=== PATIENT | male | born 1985 | race Caucasian/White ===

== ENCOUNTER 2017-01-05 18:41 | Emergency (ER) | payer BC ==
[2017-01-05 18:45] VITALS: BP 141/67
[2017-01-05] MEDS ORDERED: NS 0.9% 1000 ML* 1,000 ML IV ONE (20:59)
[2017-01-05] MEDS ORDERED: Ketorolac INJ* 30 MG/ML 1 ML VIAL IV PUSH ONE (20:59)
[2017-01-05 22:13] LABS: Hematocrit 46 % (42-52); Hemoglobin 15.9 g/dl (14.0-18.0); Mean Corpuscular HGB Conc 34 g/dl (31-36); Mean Corpuscular Hemoglobin 32 pg (27-31); Mean Corpuscular Volume 93 fL (80-94); Mean Platelet Volume 8 um3 (7.4-10.4); Red Blood Count 4.99 10^6/ul (4.0-5.4); Red Cell Distribution Width 13 % (10.5-15); White Blood Count 9.3 10^3/ul (3.5-10.8)
--- NOTE | 2017-01-05 22:14 | RAD ---
HISTORY: Flank pain COMPARISONS: CT dated March 29, 2016 TECHNIQUE: Multiple transverse and longitudinal ultrasound images were obtained of the kidneys using grayscale and color Doppler imaging. FINDINGS: RIGHT KIDNEY: The right kidney is normal in shape, size, contour, and echogenicity. There is a 1.1 cm calculus of the mid to lower pole.. There is a 0.5 cm calculus of the midpole . There is no appreciable hydronephrosis. The right kidney measures 11.5 x 4.4 x 5.7 cm. LEFT KIDNEY: The left kidney is normal in shape, size, contour, and echogenicity. There is a 0.7 cm tract was of lower pole. Several other smaller calculi are noted. There is no hydronephrosis. The left kidney measures 11.1 x 5.8 x 5 cm. BLADDER: No images are submitted of the bladder. AORTA AND IVC: No images are submitted of the vasculature. RETROPERITONEUM: Unremarkable. OTHER: None. IMPRESSION: BILATERAL NEPHROLITHIASIS WITHOUT HYDRONEPHROSIS
[2017-01-05 22:17] LABS: Urine Bacteria Absent (Absent); Urine Bilirubin Negative (Negative); Urine Glucose Negative (Negative); Urine Nitrite Negative (Negative)
[2017-01-05 22:27] LABS: ALT 31 U/L (7-52); AST 27 U/L (13-39); Albumin 4.1 g/dL (3.2-5.2); Alkaline Phosphatase 53 U/L (34-104); Anion Gap 5 mmol/L (2-11); BUN/Creatinine Ratio 14.1 (8-20); Blood Urea Nitrogen 12 mg/dL (6-24); C Reactive Protein < 1.00 mg/L (< 5.00); CO2 Carbon Dioxide 24 mmol/L (22-32); Calcium 9.3 mg/dL (8.6-10.3); Chloride 107 mmol/L (101-111); EGFR African American 135.2 (>60); EGFR Non-African American 105.1 (>60); Globulin 2.5 g/dL (2-4); Glucose 94 mg/dL (70-100); Lipase 21 U/L (11.0-82.0); Potassium 3.9 mmol/L (3.5-5.0); Sodium 136 mmol/L (133-145); Total Protein 6.6 g/dL (6.4-8.9)
--- NOTE | 2017-01-05 23:03 | RAD ---
HISTORY: Right testicular pain COMPARISONS: None TECHNIQUE: Multiple transverse and longitudinal ultrasound images were obtained of the scrotum, using grayscale, color Doppler, and spectral Doppler imaging. FINDINGS: RIGHT: RIGHT TESTICLE: The right testicle measures 4.4 x 2.1 x 3.3 cm. There is no testicular parenchymal mass. There are extensive echogenic foci consistent with testicular microlithiasis. Normal arterial and venous waveforms are identified within the right testicle on spectral Doppler imaging. RIGHT EPIDIDYMIS: The right epididymis measures 1.1 cm at the head. There is a 0.4 cm epididymal head cyst. RIGHT SCROTUM: There is a small right varicocele. LEFT: LEFT TESTICLE: The left testicle measures 5 x 2.4 x 3 cm. There is no testicular parenchymal mass. There are extensive echogenic foci consistent with microlithiasis. Normal arterial and venous waveforms are identified within the left testicle on spectral Doppler imaging. LEFT EPIDIDYMIS: The left epididymis measures 1 cm at the head. LEFT SCROTUM: There is no hydrocele or varicocele. OTHER: There are right inguinal lymph node is noted measuring 0.5 cm in short axis. This is a typically benign-appearing IMPRESSION: 1. NO TESTICULAR PARENCHYMAL MASS. 2. NO SONOGRAPHIC FEATURES OF TORSION. PLEASE NOTE THAT PARTIAL OR INTERMITTENT TORSION MAY BE SONOGRAPHICALLY NORMAL. 3. SMALL RIGHT VARICOCELE. 4. BILATERAL TESTICULAR MICROLITHIASIS. THIS HAS BEEN ASSOCIATED WITH INCREASED RISK OF TESTICULAR NEOPLASM. RECOMMEND CONSIDERATION OF YEARLY SURVEILLANCE TESTICULAR ULTRASOUND
[2017-01-05] MEDS ORDERED: Sulfamethox/Trimethoprim DS 800/160* TAB PO ONE (23:36)
--- NOTE | 2017-01-06 01:00 | ED ---
Jorge Zambrano Salem, scribed for Kj Tavera MD on 01/05/17 at 2124 . GI/ HPI - HPI Summary HPI Summary: Patient is a 31 y/o M who presents to the ED with constant 6/10 right-sided flank pain for the past week. He denies hematuria, but reports dark urine, and testicular pain. Pt denies any lumps in his testicles. He reports PMHx of kidney issues, but denies appendectomy. - History of Current Complaint Chief Complaint: EDUrogenitalProblems Time Seen by Provider: 01/05/17 20:54 Stated Complaint: BACK/GROIN PAIN Hx Obtained From: Patient Onset/Duration: Started Days Ago, Still Present Timing: Constant, Lasting Days Severity: Moderate Current Severity: Moderate Pain Intensity: 6 Location of Pain: Flank - Right. Additional Locations for Males: Testicles Pain Characteristics: Sharp Associated Signs and Symptoms: Positive: Other: - Dark urine.. Negative: Hematuria Aggravating Factor(s): Nothing Alleviating Factor(s): Nothing - Allergy/Home Medications Allergies/Adverse Reactions: Allergies Allergy/AdvReac Type Severity Reaction Status Date / Time Penicillins Allergy HIVES,VOMIT Verified 03/29/16 07:59 ING PMH/Surg Hx/FS Hx/Imm Hx Endocrine/Hematology History: Denies: Hx Anticoagulant Therapy, Hx Diabetes, Hx Thyroid Disease Cardiovascular History: Denies: Hx Hypertension, Hx Pacemaker/ICD Respiratory History: Denies: Hx Asthma, Hx Chronic Obstructive Pulmonary Disease (COPD) GI History: Reports: Hx Irritable Bowel - IMMODIUM AD Denies: Hx Ulcer History: Reports: Hx Kidney Stones - RIGHT URETERAL STONE HISTORY Denies: Hx Renal Disease - kidney stones Sensory History: Denies: Hx Contacts or Glasses, Hx Hearing Aid Opthamlomology History: Denies: Hx Contacts or Glasses Neurological History: Denies: Hx Dementia, Hx Seizures, Other Neuro Impairments/Disorders - DENIES Psychiatric History: Denies: Hx Substance Abuse - Surgical History Surgery Procedure, Year, and Place: 09/10/2012 CYSTOSCOPY WITH RIGHT URETERAL STENT, [facility] [place]. 1997 RIGHT FEMUR REPAIR, [facility] [place] Hx Anesthesia Reactions: No Infectious Disease History: No Infectious Disease History: Denies: Hx Hepatitis, Hx Human Immunodeficiency Virus (HIV), Traveled Outside the [place] in Last 30 Days - Family History Known Family History: Positive: Other - no anestesia rnx, no malignant hyperthermia - Social History Alcohol Use: None Substance Use Type: Reports: None Smoking Status (MU): Heavy Every Day Tobacco Smoker Review of Systems Negative: Fever, Chills Negative: Erythema Negative: Sore Throat Negative: Chest Pain Negative: Shortness Of Breath, Cough Negative: Abdominal Pain, Vomiting, Nausea Positive: flank pain - Right. , hematuria, other - Dark urine. Testicular pain. No lumps in testicles. . Negative: dysuria Negative: Myalgia, Edema Negative: Rash Neurological: Other - No dizziness. All Other Systems Reviewed And Are Negative: Yes Physical Exam - Summary Physical Exam Summary: Constitutional: Well-developed, Well-nourished, Alert. (-) Distressed Skin: Warm, Dry HENT: Normocephalic; Atraumatic Eyes: Conjunctiva normal Neck: Musculoskeletal ROM normal neck. (-) JVD, (-) Stridor, (-) Tracheal deviation Cardio: Rhythm regular, rate normal, Heart sounds normal; Intact distal pulses; The pedal pulses are 2+ and symmetric. Radial pulses are 2+ and symmetric. (-) Murmur Pulmonary/Chest wall: Effort normal. (-) Respiratory distress, (-) Wheezes, (-) Rales Abd: Soft, (-) Tenderness, (-) Distension, (-) Guarding, (-) Rebound Musculoskeletal: (-) Edema Lymph: (-) Cervical adenopathy GIGU: Right testicle and urethra are non-tender. Mild tenderness in right groin. No CVA tenderness. Neuro: Alert, Oriented x3 Psych: Mood and affect Normal Triage Information Reviewed: Yes Vital Signs On Initial Exam: Initial Vitals Temp Pulse Resp BP Pulse Ox 98.8 F 105 20 141/67 99 01/05/17 18:43 01/05/17 18:43 01/05/17 18:43 01/05/17 18:43 01/05/17 18:43 Vital Signs Reviewed: Yes Diagnostics - Vital Signs Vital Signs Temp Pulse Resp BP Pulse Ox 01/05/17 18:45 98.8 F 103 20 141/67 99 01/05/17 18:43 98.8 F 105 20 141/67 99 - Laboratory Result Diagrams: 01/05/17 22:02 01/05/17 22:02 Lab Statement: Any lab studies that have been ordered have been reviewed, and results considered in the medical decision making process. - Ultrasound No standard instances Ultrasound Interpretation Completed By: Radiologist - Testicular US IMPRESSION: 1. NO TESTICULAR PARENCHYMAL MASS. 2. NO SONOGRAPHIC FEATURES OF TORSION. PLEASE NOTE THAT PARTIAL OR INTERMITTENT TORSION MAY BE SONOGRAPHICALLY NORMAL. 3. SMALL RIGHT VARICOCELE. 4. BILATERAL TESTICULAR MICROLITHIASIS. THIS HAS BEEN ASSOCIATED WITH INCREASED RISK OF TESTICULAR NEOPLASM. RECOMMEND CONSIDERATION OF YEARLY SURVEILLANCE TESTICULAR ULTRASOUND. Renal US IMPRESSION: BILATERAL NEPHROLITHIASIS WITHOUT HYDRONEPHROSIS Re-Evaluation - Re-Evaluation First Eval Re-Evaluation Time: 23:51 Comment: Re-evaluated pt and discussed imaging results. GIGU Course/Dx - Course Course Of Treatment: 31 y/o M presents with constant 6/10 right-sided flank pain for the past week. He denies hematuria, but reports dark urine, and testicular pain. Pt received Toradol and fluids in ED course. Pt will be DC. - Diagnoses Provider Diagnoses: Renal colic Discharge - Discharge Plan Condition: Stable Disposition: HOME Prescriptions: Naproxen TAB* [Naprosyn 250 mg TAB*] 500 mg PO Q8H PRN #30 tab PRN Reason: Pain Scale 6-10 Sulfamethox/Trimethoprim DS* [Bactrim DS 800/160 TAB*] 1 tab PO BID #20 tab Patient Education Materials: Renal Colic (ED) Referrals: Hafsa Billings MD [Primary Care Provider] - Additional Instructions: Please follow up with your primary provider. RETURN TO THE EMERGENCY DEPARTMENT FOR CHANGING OR WORSENING SYMPTOMS. The documentation as recorded by the Jorge monreal Salem accurately reflects the service I personally performed and the decisions made by , Kj Tavera MD.
== END 2017-01-05 23:51 | disposition home or self-care (01) ==
LOC: ED 18:41
DX: N20.0 Calculus of kidney (principal); Z87.442 Personal history of urinary calculi; N50.89 Other specified disorders of the male genital organs; Z88.0 Allergy status to penicillin; F17.210 Nicotine dependence, cigarettes, uncomplicated
CPT/HCPCS: 36415; 76775; 76870; 80053; 81003; 81015; 83605; 83690; 85025; 86140; 87086; 96361; 96374; 99283; A9270-GY; J1885

== ENCOUNTER 2017-02-16 08:03 | Emergency (ER) | payer BC ==
[2017-02-16] MEDS ORDERED: Aspirin Low Dose CHEW TAB* 81 MG PO ONE (09:14)
[2017-02-16] MEDS ORDERED: Aspirin Low Dose CHEW TAB* 81 MG ONE (09:14)
[2017-02-16] MEDS ORDERED: Nitroglycerin TAB 0.4 MG* 0.4 MG TAB ONE (09:14)
[2017-02-16] MEDS ORDERED: Nitroglycerin TAB 0.4 MG* 0.4 MG TAB SL ONE (09:16)
--- NOTE | 2017-02-16 09:17 | ED ---
HPI Chest Pain - HPI Summary HPI Summary: Patient presents with CC of chest tightness which began at 5-6am, intermittent, worse with exertion and better with rest, and radiating to the left shoulder and down the arm with numbness/tingling. He also noted some SOB with episode. Pain is not worse with deep breaths. He states he feels best if he is lying flat. Notes to some diaphoresis and nausea. Patient denies any symptoms currently. PMHx insignificant. Denies previous cardiac issues. This has never happened before. He takes no medications and has no allergies. Similar episode 1x week ago which resolved. Patient is a heavy smoker, last ETOH 3 days ago, denies drug use. Fx positive for father of CT at 51yo. Denies recent illness. Denies N/V/C/D, ORTIZ neck pain or back pain. Never has had shoulder or upper back problems. - History of Current Complaint Chief Complaint: EDChestPainROMI Time Seen by Provider: 02/16/17 08:36 Hx Obtained From: Patient Onset/Duration: Started Hours Ago Time of Onset: 05:00 - 5am Timing: Constant Pain Intensity: 5 Pain Scale Used: 0-10 Numeric Chest Pain Location: Left Anterior Chest Pain Radiates: Yes Chest Pain Radiates To:: Shoulder, Arm Character: Tightness Aggravating Factor(s): Exertion Alleviating Factor(s): Rest, Position - recumbent position Associated Signs and Symptoms: Positive: Chest Pain, Diaphoresis - Risk Factors Pulmonary Embolism Risk Factors: Smoking TAD Risk Factors: Smoking, Family Hx AMI/ACS Risk Factors: Family History, Smoking - Allergy/Home Medications Allergies/Adverse Reactions: Allergies Allergy/AdvReac Type Severity Reaction Status Date / Time Penicillins Allergy HIVES,VOMIT Verified 02/16/17 08:19 ING Home Medications: Home Medications NK [No Home Medications Reported] 02/16/17 [History Confirmed 02/16/17] PMH/Surg Hx/FS Hx/Imm Hx Previously Healthy: Yes Endocrine/Hematology History: Denies: Hx Anticoagulant Therapy, Hx Diabetes, Hx Thyroid Disease Cardiovascular History: Denies: Hx Hypertension, Hx Pacemaker/ICD Respiratory History: Denies: Hx Asthma, Hx Chronic Obstructive Pulmonary Disease (COPD) GI History: Reports: Hx Irritable Bowel - IMMODIUM AD Denies: Hx Ulcer History: Reports: Hx Kidney Stones - RIGHT URETERAL STONE HISTORY Denies: Hx Renal Disease - kidney stones Sensory History: Denies: Hx Contacts or Glasses, Hx Hearing Aid Opthamlomology History: Denies: Hx Contacts or Glasses Neurological History: Denies: Hx Dementia, Hx Seizures, Other Neuro Impairments/Disorders - DENIES Psychiatric History: Denies: Hx Substance Abuse - Surgical History Surgery Procedure, Year, and Place: 09/10/2012 CYSTOSCOPY WITH RIGHT URETERAL STENT, [facility]. 1998 RIGHT FEMUR REPAIR, [facility] Hx Anesthesia Reactions: No - Immunization History Hx Pertussis Vaccination: No Immunizations Up to Date: Unable to Obtain/Confirm Infectious Disease History: No Infectious Disease History: Denies: Hx Hepatitis, Hx Human Immunodeficiency Virus (HIV), Traveled Outside the [place] in Last 30 Days - Family History Known Family History: Positive: Other - no anestesia rnx, no malignant hyperthermia - Social History Occupation: Employed Full-time Lives: With Family Alcohol Use: Occasionally Hx Substance Use: No Substance Use Type: Reports: None Hx Tobacco Use: Yes Smoking Status (MU): Heavy Every Day Tobacco Smoker Review of Systems Positive: Skin Diaphoresis Eyes: Negative ENT: Negative Positive: Chest Pain Positive: Shortness Of Breath Gastrointestinal: Negative Positive: no symptoms reported, see HPI Positive: Myalgia - shoulder pain Skin: Negative Neurological: Negative Psychological: Normal All Other Systems Reviewed And Are Negative: Yes Physical Exam Triage Information Reviewed: Yes Vital Signs On Initial Exam: Initial Vitals Temp Pulse Resp BP Pulse Ox 99.2 F 88 18 125/71 99 02/16/17 08:04 02/16/17 08:04 02/16/17 08:04 02/16/17 08:04 02/16/17 08:04 Vital Signs Reviewed: Yes Appearance: Positive: Well-Appearing, Well-Nourished Skin: Positive: Warm, Skin Color Reflects Adequate Perfusion Head/Face: Positive: Normal Head/Face Inspection Eyes: Positive: Normal, EOMI, JITENDRA, Conjunctiva Clear Neck: Positive: Supple, Nontender, No Lymphadenopathy Respiratory/Lung Sounds: Positive: Clear to Auscultation, Breath Sounds Present Cardiovascular: Positive: RRR, Pulses are Symmetrical in both Upper and Lower Extremities Abdomen Description: Positive: Soft Musculoskeletal: Positive: Normal, Strength/ROM Intact Neurological: Positive: Normal, Sensory/Motor Intact Psychiatric: Positive: Normal AVPU Assessment: Alert - Jody Coma Scale Best Eye Response: 4 - Spontaneous Best Motor Response: 6 - Obeys Commands Best Verbal Response: 5 - Oriented Coma Scale Total: 15 Diagnostics - Vital Signs Vital Signs Temp Pulse Resp BP Pulse Ox 02/16/17 09:00 80 17 119/73 98 02/16/17 08:17 84 14 98 02/16/17 08:16 16 02/16/17 08:15 118/67 02/16/17 08:08 99.3 F 90 18 125/71 99 02/16/17 08:04 99.2 F 88 18 125/71 99 - Laboratory Result Diagrams: 02/16/17 08:52 02/16/17 08:52 Lab Statement: Any lab studies that have been ordered have been reviewed, and results considered in the medical decision making process. Chest Pain Course/Dx - Course Course Of Treatment: The anterior left chest pain cannot be reproduced on PE. Trop #1 and #2 0.01 and unchanged. EKG shows diffuse ST elevation. Dr. Mulligan consulted. ECHO performed and negative for effusion. Patient denies asprin and ibuprofen use. Deneis drug use. Will follow up with cardiology outpatient. OK to discharge. Patient will take 800mg motrin x 2 weeks. Denies other symptoms or changes. - Chest Pain Differential Diagnosis/HQI/PQRI: Acute CT, ACS, Angina - Diagnoses Provider Diagnoses: Chest pain Discharge - Discharge Plan Condition: Stable Disposition: HOME Patient Education Materials: Chest Pain (ED) Referrals: Hafsa Billings MD [Primary Care Provider] - Additional Instructions: 800mg motrin four times daily for 2 weeks Follow up with DR. Mulligan in office If symptoms become worse, return to ED
[2017-02-16 09:27] LABS: Hematocrit 48 % (42-52); Hemoglobin 16.3 g/dl (14.0-18.0); Mean Corpuscular HGB Conc 34 g/dl (31-36); Mean Corpuscular Hemoglobin 32 pg (27-31); Mean Corpuscular Volume 95 fL (80-94); Mean Platelet Volume 8 um3 (7.4-10.4); Red Blood Count 5.05 10^6/ul (4.0-5.4); Red Cell Distribution Width 14 % (10.5-15); White Blood Count 9.3 10^3/ul (3.5-10.8)
--- NOTE | 2017-02-16 09:33 | RAD ---
Indication: Chest pain. Single frontal view of the chest performed at 0920 hours was reviewed. No prior study is available for comparison. No mediastinal shift is noted. Heart is of normal size and configuration. Lung chris appear clear. IMPRESSION: NO ACTIVE CARDIOPULMONARY DISEASE IS NOTED.
[2017-02-16 09:39] LABS: Albumin 4.2 g/dL (3.2-5.2); Calcium 9.7 mg/dL (8.6-10.3); EGFR African American 132.5 (>60); EGFR Non-African American 103.1 (>60); Globulin 2.8 g/dL (2-4); Total Bilirubin 0.4 mg/dL (0.2-1.0)
[2017-02-16 09:42] LABS: Troponin I 0.01 ng/mL (<0.04)
[2017-02-16 10:24] LABS: Potassium 4.5 mmol/L (3.5-5.0)
[2017-02-16 10:59] LABS: Magnesium 2.2 mg/dL (1.9-2.7)
[2017-02-16 11:04] LABS: Urine Bacteria Absent (Absent); Urine Bilirubin Negative (Negative); Urine Glucose 1+(50 mg/dL) (Negative); Urine Nitrite Negative (Negative)
[2017-02-16 11:39] LABS: Benzodiazepine Urine Screen None Detected (None Detect)
--- NOTE | 2017-02-16 11:57 | ECHO ---
Patient: BUNNY PUGA [facility] [place] Rec#: [id number] : 1985 Date: 02/16/2017 Age: 32y Height: 177.8 cm / 70.0 in Weight: 69.4 kg / 153.0 lbs Sex: M BSA: 1.86 Room#: ED 12 Admit Date#: 02/16/2017 Type: Outpatient Referring: Ish Mulligan MD Reading: Ish Mulligan MD [employer] Of [employer] Ideas: Kathy Martins,KENDALLCS,RDMS CC: Hafsa Billings MD Transthoracic Echocardiogram Indication: CP BP: 108/67 HR: 74 Rhythm: NSR Findings History: Smoker, family history of CAD Technical Comments: The study quality is good. Completed 1200 Left Ventricle: The left ventricular chamber size is normal. Mild concentric left ventricular hypertrophy is observed. Global left ventricular wall motion and contractility are within normal limits. Left ventricular systolic function is at the lower limits of normal. The estimated ejection fraction is 50-55%. Normal left ventricular diastolic filling is observed. Left Atrium: The left atrial chamber size is normal. Right Ventricle: The right ventricular chamber size and systolic function are within normal limits. Right Atrium: The right atrial cavity size is normal. Aortic Valve: The aortic valve is trileaflet. Systolic excursion of the aortic valve is normal. There is no evidence of aortic regurgitation. There is no evidence of aortic stenosis. Mitral Valve: The mitral valve leaflets appear normal. There is a trace of mitral regurgitation. There is no evidence of mitral stenosis. Tricuspid Valve: The tricuspid valve leaflets are normal. There is trace tricuspid regurgitation. Unable to estimate the right ventricular systolic pressure. Pulmonic Valve: The pulmonic valve appears normal. There is a trace pulmonic regurgitation. Pericardium: There is no significant pericardial effusion. Aorta: The aortic root appears normal. There is no dilatation of the aortic arch. Pulmonary Artery: The main pulmonary artery appears normal. Venous: The inferior vena cava appears normal. There is a greater than 50% respiratory change in the inferior vena cava dimension. Conclusions Mild concentric left ventricular hypertrophy is observed. Global left ventricular wall motion and contractility are within normal limits. Left ventricular systolic function is at the lower limits of normal. The estimated ejection fraction is 50-55%. There is no evidence of aortic stenosis. There is a trace of mitral regurgitation. There is trace tricuspid regurgitation. Unable to estimate the right ventricular systolic pressure. There is no significant pericardial effusion. There is no dilatation of the aortic arch. Measurements Name Value Normal Range RVIDd (AP) 2D 2.3 cm (0.9 - 2.6) RVDdMajor (2D) 3.2 cm (2.2 - 4.4) RAd ISD 4CH 4.5 cm (3.4 - 4.9) RA (A4C)W 4.2 cm (2.9 - 4.6) IVSd (2D) 1.3 cm (0.6 - 1) LVPWd (2D) 1.1 cm (0.6 - 1) LVIDd (2D) 4.6 cm (3.6 - 5.4) LVIDs (2D) 2.8 cm - LV FS (2D) 38 % (25 - 45) Aortic Annulus 2.1 cm (1.4 - 2.6) Ao root diameter (2D) 2.6 cm (2.1 - 3.5) Ascending Ao 2.5 cm (2.1 - 3.4) Aortic arch 2.8 cm (1.8 - 3.4) LA dimension (AP) 2D 3.9 cm (2.3 - 3.8) LAd ISD 4CH 5.8 cm (2.9 - 5.3) LA ISD 4CH W 3.2 cm (2.5 - 4.5) Name Value Normal Range LA ESV SP 4CH (A/L) 46.72 ml - LA ESV SP 2CH (A/L) 39.92 ml - LA ESV BP (A/L) 44.29 ml - LA ESV BP (A/L) index 24 ml/m2 - LA ESV SP 4CH (MOD) 43.41 ml - LA ESV SP 2CH (MOD) 37.3 ml - Name Value Normal Range MV E-wave Vmax 0.5 m/sec - MV deceleration time 208 msec - MV A-wave Vmax 0.4 m/sec - MV E:A ratio 1.3 ratio - P. vein S-wave Vmax 0.6 m/sec - P. vein D-wave Vmax 0.4 m/sec - P. vein S:D Vmax ratio 1.4 ratio - P. vein A-wave duration 89 msec - LV septal e' Vmax 0.11 m/sec - LV lateral e' Vmax 0.14 m/sec - LV E:e' septal ratio 4.5 ratio - LV E:e' lateral ratio 3.6 ratio - Name Value Normal Range AV Vmax 1.3 m/sec - AV VTI 23 cm - AV peak gradient 7 mmHg - AV mean gradient 3.3 mmHg - LVOT Vmax 1.1 m/sec - LVOT VTI 19.8 cm - LVOT peak gradient 5 mmHg - LVOT mean gradient 2.6 mmHg - DOROTEO Vmax 1 m/sec - Name Value Normal Range RAP 8 mmHg - IVC diameter 1.9 cm - Name Value Normal Range PV Vmax 0.9 m/sec - PV peak gradient 3.2 mmHg -
[2017-02-16 12:35] VITALS: BP 126/60
--- NOTE | 2017-02-16 21:56 | CONS ---
CARDIOLOGY CONSULTATION: DATE OF CONSULT: 02/16/17 - EMERGENCY DEPT INDICATION FOR CONSULTATION: Chest pain. HISTORY OF PRESENT ILLNESS: The patient is a 32-year-old gentleman with a history of smoking, who came to the emergency room with chest pain. The patient states that over the last week or so, he has been having intermittent chest pain, occasionally with exertion, but most of the time with rest. He denies any lightheadedness, dizziness, or syncope. The patient states that today, he was having a cigarette and had severe chest pain that radiated down his left arm. He also had some diaphoresis associated with that. At that point , he decided to come to the emergency room. On arrival to the emergency room, the patient did not have any chest pain or shortness of breath. His initial EKG demonstrates normal sinus rhythm with MN depression and ST segment elevation consistent with pericarditis. The patient denies any history of coronary artery disease. His father of a myocardial infarction at age 51. He does report that he was recently in the hospital with kidney stones about 3 weeks ago. PAST MEDICAL HISTORY: Unremarkable. He does have a history of kidney stones. PAST SURGICAL HISTORY: None. OUTPATIENT MEDICATIONS: None. ALLERGIES: To PENICILLIN. SOCIAL HISTORY: He works as a truck crane operator for [employer] He reports smoking 1 to 2 packs of cigarettes a day. He does drink high energy drinks for his chronic fatigue. Occasional alcohol use. PHYSICAL EXAMINATION: Height is 5 feet 10 inches, weight is 153 pounds, temperature 99, blood pressure 126/60, heart rate is 80, respiratory rate is 18. Sclerae anicteric. Oropharynx is pink without erythema. Carotids are 2+ without bruits. JVD is normal. Thyroid is normal. Cardiac Exam: S1, S2 without any murmurs, rubs or gallops. Lungs are clear to auscultation bilaterally. There is no dullness to percussion. Abdomen is soft, nontender, nondistended with normal active bowel sounds. Extremities: Show no edema. He has 2+ pulses throughout. The patient is awake, alert, and oriented. He moves all 4 extremities equally. DIAGNOSTIC STUDIES/LAB DATA: CBC within normal limits. Chemistries within normal limits. AST and ALT are within normal limits. Troponin level 0.01, second troponin 0.01. BNP is 20. An echocardiogram done in the emergency room demonstrated normal LV size with systolic function. No valvular abnormality. No evidence of pericardial effusion or pericardial inflammation. IMPRESSION AND PLAN: This is a 32-year-old gentleman with a history of smoking , who came to the emergency room because of chest pain. His chest pain is quite consistent with pericarditis. His EKG is consistent with pericarditis. His echocardiogram shows no focal wall motion abnormalities and no significant valvular abnormalities. For now, my diagnosis is pericarditis. It is my recommendation the patient start Motrin 3 times a day for 2 weeks. I will see the patient in followup. If the patient continues to have chest pain, he is asked to come back to the emergency room. [id number]/CPS #: [id number] VELMA
== END 2017-02-16 12:51 | disposition home or self-care (01) ==
LOC: ED 08:03
DX: R07.89 Other chest pain (principal); R61 Generalized hyperhidrosis; Z88.0 Allergy status to penicillin; Z87.442 Personal history of urinary calculi; F17.210 Nicotine dependence, cigarettes, uncomplicated
CPT/HCPCS: 36415; 71010; 80053; 80307; 81003; 81015; 82550; 82553; 83605; 83735; 83874; 83880; 84484; 85025; 85610; 85730; 93005; 93306; 99283; A9270-GY

== ENCOUNTER 2017-02-22 00:30 | Observation (INO) | payer BC ==
[2017-02-22] MEDS ORDERED: NS 0.9% 1000 ML* 1,000 ML IV ONE (02:11)
[2017-02-22] MEDS ORDERED: Ketorolac INJ* 30 MG/ML 1 ML VIAL IV PUSH ONE (02:11)
[2017-02-22 02:26] LABS: Hematocrit 45 % (42-52); Hemoglobin 15.1 g/dl (14.0-18.0); Mean Corpuscular HGB Conc 34 g/dl (31-36); Mean Corpuscular Hemoglobin 32 pg (27-31); Mean Corpuscular Volume 96 fL (80-94); Mean Platelet Volume 8 um3 (7.4-10.4); Red Blood Count 4.71 10^6/ul (4.0-5.4); Red Cell Distribution Width 13 % (10.5-15); White Blood Count 10.4 10^3/ul (3.5-10.8)
[2017-02-22 02:38] LABS: Albumin 4.1 g/dL (3.2-5.2); BUN/Creatinine Ratio 17.5 (8-20); Calcium 9.2 mg/dL (8.6-10.3); EGFR African American 115.4 (>60); EGFR Non-African American 89.7 (>60); Globulin 2.5 g/dL (2-4); Potassium 4.2 mmol/L (3.5-5.0); Total Bilirubin 0.3 mg/dL (0.2-1.0); Total Protein 6.6 g/dL (6.4-8.9)
[2017-02-22] MEDS ORDERED: Ondansetron INJ* 2 MG/ML VIAL IV ONE (04:02)
[2017-02-22] MEDS ORDERED: Morphine INJ* 4 MG/ML 1 ML SYRINGE IV ONE (04:02)
[2017-02-22] MEDS ORDERED: HYDROmorphone* 1 MG/ML 1 ML SYR IV SLOW PU ONE (04:22)
--- NOTE | 2017-02-22 04:33 | ED ---
Durga Zambrano Alfonso, scribed for Mesfin Cox on 02/22/17 at 0234 . Abdominal Pain/Male - HPI Summary HPI Summary: This patient is a 32 year old M presenting to [facility] with a chief complaint of right flank pain since 2099 yesterday. Pt rates the pain 8/10 in severity. Symptoms aggravated and alleviated by nothing. Pt reports nausea, and vomiting. Pt denies rash, and hematuria. Tobacco abuse disorder. PMHx of kidney stones. - History of Current Complaint Chief Complaint: EDFlankPain Stated Complaint: LOWER RT SIDE FLANK PAIN Time Seen by Provider: 02/22/17 01:49 Hx Obtained From: Patient Onset/Duration: Sudden Onset, Lasting Hours - since 2099 yesterday/tonight, Still Present Timing: Constant Severity Initially: Moderate Severity Currently: Moderate Pain Intensity: 8 Pain Scale Used: 0-10 Numeric Location: Flank - R Aggravating Factor(s): Nothing Alleviating Factor(s): Nothing Associated Signs And Symptoms: Positive: Other - Pt reports nausea, and vomiting. Pt denies rash, and hematuria. - Allergies/Home Medications Allergies/Adverse Reactions: Allergies Allergy/AdvReac Type Severity Reaction Status Date / Time Penicillins Allergy HIVES,VOMIT Verified 02/16/17 08:19 ING PMH/Surg Hx/FS Hx/Imm Hx Endocrine/Hematology History: Denies: Hx Anticoagulant Therapy, Hx Diabetes, Hx Thyroid Disease Cardiovascular History: Denies: Hx Hypertension, Hx Pacemaker/ICD Respiratory History: Denies: Hx Asthma, Hx Chronic Obstructive Pulmonary Disease (COPD) GI History: Reports: Hx Irritable Bowel - IMMODIUM AD Denies: Hx Ulcer History: Reports: Hx Kidney Stones - RIGHT URETERAL STONE HISTORY Denies: Hx Renal Disease - kidney stones Sensory History: Denies: Hx Contacts or Glasses, Hx Hearing Aid Opthamlomology History: Denies: Hx Contacts or Glasses Neurological History: Denies: Hx Dementia, Hx Seizures, Other Neuro Impairments/Disorders - DENIES Psychiatric History: Denies: Hx Substance Abuse - Surgical History Surgery Procedure, Year, and Place: 09/10/2012 CYSTOSCOPY WITH RIGHT URETERAL STENT, [facility] [place]. 1997 RIGHT FEMUR REPAIR, [facility] [place] Hx Anesthesia Reactions: No Infectious Disease History: Denies: Hx Hepatitis, Hx Human Immunodeficiency Virus (HIV), Traveled Outside the [place] in Last 30 Days - Family History Known Family History: Positive: Other - no anestesia rnx, no malignant hyperthermia - Social History Alcohol Use: Occasionally Hx Substance Use: No Substance Use Type: Reports: None Hx Tobacco Use: Yes Smoking Status (MU): Heavy Every Day Tobacco Smoker Review of Systems Positive: Abdominal Pain - R flank, Vomiting, Nausea Negative: hematuria Negative: Rash All Other Systems Reviewed And Are Negative: Yes Physical Exam Triage Information Reviewed: Yes Vital Signs On Initial Exam: Initial Vitals Temp Pulse Resp BP Pulse Ox 97.8 F 77 16 132/88 99 02/22/17 00:37 02/22/17 00:37 02/22/17 00:37 02/22/17 00:37 02/22/17 00:37 Vital Signs Reviewed: Yes Appearance: Positive: Well-Appearing, No Pain Distress Skin: Positive: Warm, Skin Color Reflects Adequate Perfusion, Dry Head/Face: Positive: Normal Head/Face Inspection Eyes: Positive: EOMI, JITENDRA ENT: Positive: Normal ENT inspection Neck: Positive: Supple, Nontender Respiratory/Lung Sounds: Positive: Clear to Auscultation, Breath Sounds Present Cardiovascular: Positive: RRR, Pulses are Symmetrical in both Upper and Lower Extremities Abdomen Description: Positive: Soft, Other: - Right flank tenderness Bowel Sounds: Positive: Present Musculoskeletal: Positive: Normal, Strength/ROM Intact Neurological: Positive: Normal, Sensory/Motor Intact, Alert, Oriented to Person Place, Time Diagnostics - Vital Signs Vital Signs Temp Pulse Resp BP Pulse Ox 02/22/17 00:37 97.8 F 77 16 132/88 99 - Laboratory Result Diagrams: 02/22/17 02:05 02/22/17 02:05 Lab Statement: Any lab studies that have been ordered have been reviewed, and results considered in the medical decision making process. - CT A/P CT Interpretation Completed By: Radiologist - Mild hydronephrosis and perinephric inflammation secondary to a 1.1 cm proximal right renal stone, at or just beyond the UPJ. Additional 1 mm proximal right ureteral stone. Multiple small left renal stones. Abdominal Pain Fem Course/Dx - Course Assessment/Plan: 32 year old M presenting to [facility] with a chief complaint of right flank pain since 2100 yesterday. Pt reports nausea, and vomiting. Pt denies rash, and hematuria. CT A/P reveals mild hydronephrosis and perinephric inflammation secondary to a 1.1 cm proximal right renal stone, at or just beyond the UPJ. Additional 1 mm proximal right ureteral stone. Multiple small left renal stones. Consulted Dr. Pulido (urologist) who recommends admission. Consulted Dr. Canada (hospitalist) at 0419 who agrees to admit. Pt is agreeable with this plan. - Diagnoses Provider Diagnoses: Renal calculi - Provider Notifications Discussed Care Of Patient With: Jeff Pulido Time Discussed With Above Provider: 04:10 Instructed by Provider To: Other - Consulted Dr. Pulido (urologist) who recommends admission. Consulted Dr. Canada (hospitalist) at 0419 who agrees to admit. Discharge - Discharge Plan Condition: Stable Disposition: ADMITTED TO [facility] Referrals: Hafsa Billings MD [Primary Care Provider] - The documentation as recorded by the Durga monreal Alfonso accurately reflects the service I personally performed and the decisions made by Kenny francis Emmanuel.
[2017-02-22] MEDS ORDERED: HYDROmorphone* 1 MG/ML 1 ML SYR IV SLOW PU PRN (06:38)
[2017-02-22] MEDS ORDERED: NS 0.9% 1000 ML* 1,000 ML IV SCH (06:45)
[2017-02-22] MEDS ORDERED: Ketorolac INJ* 15 MG/ML 1 ML VIAL IV PUSH PRN (06:54)
[2017-02-22] MEDS ORDERED: cefTRIAXone VIAL(*) 1,000 MG in NS 0.9% 50 ML* 50 ML IVPB SCH (07:00)
[2017-02-22] MEDS ORDERED: Iohexol 180 (CONTRAST) 10 ML SDV IV ONE (09:36)
--- NOTE | 2017-02-22 09:48 | RAD ---
CLINICAL HISTORY: Right flank pain and inability to void x2 hours. Relevant surgical history includes right ureteral stent. COMPARISON: Most recent CT of the abdomen and pelvis is dated March 29, 2016 TECHNIQUE: Noncontrast CT examination of the abdomen and pelvis from the lung bases through the initial tuberosities. FINDINGS: VISUALIZED LUNG BASES: The visualized lung bases are grossly clear. There is no pleural effusion. ABDOMEN AND PELVIS: Evaluation of the solid organs and vasculature is limited without intravenous contrast. The liver, spleen, pancreas and adrenal glands are grossly normal in appearance. The gallbladder is normal. In the left kidney there are 2 nonobstructing renal calculi, the larger one measuring 7 mm in length and the shorter one measuring 3 mm in greatest dimension. There is no left-sided hydronephrosis. At the left ureteropelvic junction there is a calcification measuring up to 1.3 cm and greatest cephalocaudal dimension (image 50 on the coronal images) causing moderate right-sided hydronephrosis. More distally the right ureter is clear of calculi and there are no calculi seen in the urinary bladder. The small and large bowel are not distended.The patient's normal appendix is identified in the right lower quadrant measuring up to 5 mm in diameter (axial image 86). There is no gross retroperitoneal or mesenteric lymphadenopathy. The pelvic viscera is normal in appearance. The abdominal aorta and iliac arteries are normal in course and diameter. There are no sinister bone lesions. IMPRESSION: At the right ureteropelvic junction there is a large calcification measuring up to 1.2 cm in the cephalocaudal projection causing moderate right-sided hydronephrosis. Nonobstructing calculi are noted in the left kidney as well.
[2017-02-22] MEDS ORDERED: fentaNYL* 50 MCG/ML 2 ML VIAL (100 MCG VIAL) ONE (09:54)
[2017-02-22] MEDS ORDERED: Midazolam* 1 MG/ML 2 ML VIAL (2 MG) ONE (09:55)
[2017-02-22] MEDS ORDERED: Gentamicin ADULT (*) 40 MG/ML VIAL ONE ×2 (09:59→10:00)
[2017-02-22] MEDS ORDERED: Ondansetron INJ* 2 MG/ML VIAL IV PRN (10:02)
[2017-02-22] MEDS ORDERED: Levalbuterol 0.63MG/3ML NEB INH PRN (10:02)
[2017-02-22] MEDS ORDERED: Acetaminophen TAB* 325 MG PO PRN (10:02)
[2017-02-22] MEDS ORDERED: fentaNYL* 50 MCG/ML 2 ML VIAL (100 MCG VIAL) IV PRN (10:02)
[2017-02-22] MEDS ORDERED: PROCHLORPERAZINE INJ 5 MG/ML 2 ML VIAL IV PRN (10:02)
[2017-02-22] MEDS ORDERED: Famotidine IV* 10 MG/ML 2 ML (20 mg) ONE (10:06)
[2017-02-22] MEDS ORDERED: Lidocaine 2% PF * 5 ML VIAL ONE (10:06)
[2017-02-22] MEDS ORDERED: Dexamethasone IV* 4 MG/ML 1 ML (4 MG) ONE (10:06)
[2017-02-22] MEDS ORDERED: Propofol* 10 MG/ML 20 ML BTL IV PUSH ONE (10:06)
[2017-02-22 12:16] VITALS: BP 113/79
--- NOTE | 2017-02-22 12:28 | RAD ---
CPT II Codes: 6045F INDICATION: Large right-sided ureteropelvic junction calculus. TECHNIQUE: Intraoperative fluoroscopy was provided during retrograde ureterogram and stent placement. FINDINGS: 5 spot films depict mild dilatation of the right renal collecting system followed by anatomic placement of a right ureteral stent.. Fluoroscopy time: 14 seconds IMPRESSION: As above.
--- NOTE | 2017-02-22 12:31 | DCNOTE ---
Patient seen after stent placement. Feeling better in terms of pain, now only an ache. No chest pain. 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 On exam, RRR, s1 and s2 present, no m/g/r, abd soft, NTND, BS+, no CVA tenderness Discharge home today. Can continue outpatient NSAIDs for pericarditis. Will write for work excuse. F/U with Dr. Pulido.
--- NOTE | 2017-02-22 13:54 | RAD ---
INDICATION: Status post right ureteral stent placement COMPARISON: CT abdomen pelvis February 22, 2017 TECHNIQUE: 2 views the abdomen were obtained. FINDINGS: There has been interval placement of an anatomically aligned right ureteral stent. Coarse calcification measuring up to 9 mm immediately lateral to the proximal loop of the stent likely corresponds to the large renal calculus seen on the prior CT examination. IMPRESSION: INTERVAL PLACEMENT OF AN ANATOMICALLY ALIGNED RIGHT URETERAL STENT.
--- NOTE | 2017-02-22 15:53 | HP ---
CC: Dr. Hafsa Billings * DATE OF ADMISSION: CHIEF COMPLAINT: Right flank pain. HISTORY OF PRESENT ILLNESS: The patient is a 32-year-old gentleman with history of nephrolithiasis. He stated he started having pain in his right lower back to his right groin. They woke him up from a sleep. At it is worse, it was 10/10 in severity. He has had this before and has had 2 stents placed. He said he has felt like he had a fever. He had nausea but no vomiting. He says the pain medication has helped. The pain is pretty constant. He has noticed no blood in his urine. PAST MEDICAL HISTORY: Significant for pericarditis, just diagnosed this last week and nephrolithiasis as noted with two stents placed. MEDICATIONS: Include only ibuprofen p.r.n. ALLERGIES: He has allergy/adverse reaction to PENICILLIN. FAMILY HISTORY: Mother at 52, does not know her medical history. His father at 52 of an [place]. SOCIAL HISTORY: Quit tobacco just yesterday, he smokes 1 to 2 packs for 17 years. Quit alcohol as well last Thursday. Says he was only social drinker. There are no recreational drug use. 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 He is not . He has no children. REVIEW OF SYSTEMS: A 14-point review of systems is completed with the patient. All pertinent positives and negatives are in the history of present illness, otherwise negative. PHYSICAL EXAMINATION GENERAL: Pleasant gentleman, lying in bed, no acute distress. VITAL SIGNS: Temperature 97.8 degrees, heart rate 77 beats a minute, respiratory rate 16 beats a minute, pulse ox 99%, blood pressure 132/88. HEENT: Normocephalic, atraumatic. Pupils are equal, round and reactive to light. Moist mucous membranes. NECK: Supple. No JVD, bruits, palpable thyroid, lymphadenopathy. LUNGS: Chest clear to auscultation and percussion bilaterally. CARDIOVASCULAR: S1, S2 appreciated. Regular rate and rhythm. ABDOMEN: Positive bowel sounds, upper quadrant sounds nontender, nondistended. EXTREMITIES: No cyanosis, clubbing or edema, +2 pulses bilaterally. NEUROLOGIC: Alert and oriented x3. Moves all extremities. SKIN: No rashes or abnormalities. DIAGNOSTIC STUDIES/LAB DATA: White count 10.4, hemoglobin 15.1, hematocrit 45 , platelets 235. Sodium 135, potassium 4.2, chloride 108, CO2 23, BUN 17, creatinine 1.87, glucose 137. Abdomen and pelvic CT shows a 1.1 cm stone with mild hydro. ASSESSMENT AND PLAN: 1. Nephrolithiasis and hydronephrosis. Place patient on normal saline 125 cc an hour, n.p.o. Dilaudid p.r.n. for pain. We will also give Toradol p.r.n. for pain. Zofran p.r.n. for nausea. Dr. Pulido to see today and likely put in stent placement. 2. FEN: N.p.o. Fluids as noted. 3. DVT prophylaxis, none, young and ambulatory. 4. Patient is full code. TIME SPENT: Over 75 minutes were spent in this patient's H and P, more than 40 minutes of which is spent in direct [id number] contact with the patient evaluation, physical exam, counseling, and coordination of care. [id number]/[facility] #: [id number] MTDD
--- NOTE | 2017-02-22 22:32 | CONS ---
UROLOGY CONSULTATION: DATE OF CONSULTATION: 02/22/17 AGE: 32 years, male. REQUESTING PHYSICIAN: Dr. Cox in the emergency department. DIAGNOSES: 1. Right hydronephrosis. 2. Right flank pain. 3. Large obstructing calculus, right ureteropelvic junction. CONSULTATION: Jaswinder Wen is a 32-year-old gentleman with a history of recurrent bilateral renal calculi. He presented with right flank pain and nausea, and a CT scan revealed a fairly large, approximately 13-mm calculus at the right ureteropelvic junction with moderate right hydronephrosis. PAST MEDICAL HISTORY: Significant for: 1. Recent viral pericarditis. 2. Recurrent renal calculi. MEDICATIONS ON ADMISSION: 1. Ibuprofen for the pericarditis. 2. Inhalers p.r.n. ALLERGIES: PENICILLIN (rash), can tolerate CEPHALOSPORINS. REVIEW OF SYSTEMS: He is otherwise in excellent health. He denies any chest pain or shortness of breath. There is no history of diabetes mellitus or any other major systemic illness. PHYSICAL EXAM: General: Reveals a pleasant, uncomfortable-appearing young gentleman who is in obvious right flank pain. Vital Signs: Blood pressure is 146/91; pulse 78 per minute, regular; temperature 37; respirations 16 per minute ; oxygen saturation 99% on room air. Cardiovascular Exam: Regular rate and rhythm. S1 and S2. Lungs are clear bilaterally. Abdomen is soft with right flank tenderness. DIAGNOSTIC STUDIES/LAB DATA: Review of labs revealed a white count of 10.4, hemoglobin and hematocrit are normal at 15 and 45, platelet count is 235. Review of chemistry revealed sodium of 135, potassium of 4.2, BUN and creatinine are normal at 17 and 0.97. Glucose is 137. I reviewed the CT scan, which reveals a large calculus at the right ureteropelvic junction measuring 13 mm (to me, it appears more like 14 mm to 15 mm), and in addition there are non-obstructing left renal calculi. PLAN/RECOMMENDATIONS: I had a detailed discussion with Mr. Wen and reviewed the imaging studies with him. The plan is for urgent right stent insertion to be followed at some point in the near future by lithotripsy for definitive treatment of the calculus. The procedure and possible risks were also discussed in detail with him and the plan is to proceed with urgent right stent insertion. [id number]/[facility] #: [id number] VELMA
[2017-02-23] MEDS ORDERED: Nicotine PATCH 21 MG/24 HR* PATCH TRANSDERM SCH (08:00)
--- NOTE | 2017-02-23 12:10 | OP ---
DATE OF OPERATION: 02/22/17 - ROOM #349 DATE OF : 85 SURGEON: Jeff Pulido MD. ANESTHESIOLOGIST: Dr. Allen. ANESTHESIA: General. PRE-OP DIAGNOSES: 1. Right hydronephrosis. 2. Obstructing calculus, right ureteropelvic junction. 3. Urethral (meatal) stricture. POST-OP DIAGNOSES: 1. Right hydronephrosis. 2. Obstructing calculus, right ureteropelvic junction. 3. Urethral (meatal) stricture. OPERATIVE PROCEDURE: 1. Cystoscopy. 2. Right retrograde pyelogram. 3. Right ureteral calculus manipulation. 4. Right stent insertion. INDICATIONS: Jaswinder Wen is a 32-year-old gentleman who was evaluated for an obstructing right ureteropelvic junction calculus. He is being brought in for right stent insertion to be followed by lithotripsy in the near future. COMPLICATIONS: None. POSTOPERATIVE CONDITION: Stable. STENT USED: 6-Greek stent, right ureter. OPERATIVE FINDINGS: Large calculus impacted at right ureteropelvic junction with right hydronephrosis. DESCRIPTION OF PROCEDURE: After induction of general anesthesia, the patient was placed in dorsal lithotomy position. Sequential compression devices were in place and functioning. Initial cystoscopy revealed a meatal stricture which was carefully dilated. The remainder of the urethra was unremarkable. The bladder was examined and was unremarkable. The right retrograde pyelogram initially did not reveal any progression of contrast into the kidney suggesting a complete obstruction. Open-ended catheter was advanced to the level of just below the ureteropelvic junction and after some initial manipulation with the open ended catheter and the wire, the calculus was manipulated proximally. Once this was done, 6-Greek stent could be easily introduced under fluoroscopic monitoring with good proximal and distal positioning obtained. The bladder was emptied. The patient tolerated the procedure satisfactorily and was transferred back to the recovery area in stable condition. [id number]/[facility] #: [id number] [facility]
[2017-02-23] MEDS ORDERED: Nicotine Patch Removal NOTE PATCH OFF SCH (21:00)
== END 2017-02-22 13:55 | disposition home or self-care (01) ==
LOC: ED 00:30 → SSU 06:38
PROVIDERS: ADMIT Internal Medicine; ATTEND Hospitalist
PROC: 0T768DZ Dilation of Right Ureter with Intraluminal Device, Via Natural or Artificial Opening Endoscopic (ICD-10-PCS; 2017-02-22)
PROC: BT1DZZZ Fluoroscopy of Right Kidney, Ureter and Bladder (ICD-10-PCS; principal; 2017-02-22 09:45)
DX: N13.2 Hydronephrosis with renal and ureteral calculous obstruction (principal); F17.210 Nicotine dependence, cigarettes, uncomplicated; Z87.442 Personal history of urinary calculi
CPT/HCPCS: 36415; 74000; 74176; 74420; 80053; 83690; 85025; 96374; 96375; 99283; 99406; C1876; G0378; J0696; J1100; J1170; J1580; J1885; J2250; J2270; J2405; J2704; J3010

== ENCOUNTER 2017-03-09 08:34 | Day surgery (SDC) | payer BC ==
[~2017-03-09 08:34] MED LIST: Buffered Lidocaine 0.9% SYRIN* 5 ML/SYR SYRINGE INTRADERM ONE; Famotidine IV* 10 MG/ML 2 ML (20 mg) IV ONE; Metoclopramide TAB* 10 MG PO ONE
[2017-03-09] MEDS ORDERED: Buffered Lidocaine 0.9% SYRIN* 5 ML/SYR SYRINGE ONE (08:55)
[2017-03-09] MEDS ORDERED: Levofloxacin 500 MG IVPREMIX(* 500 MG/100 ML BAG IVPB ONE (08:55)
[2017-03-09] MEDS ORDERED: Famotidine IV* 10 MG/ML 2 ML (20 mg) ONE (08:55)
[2017-03-09] MEDS ORDERED: Metoclopramide TAB* 10 MG ONE (08:55)
[2017-03-09] MEDS ORDERED: Ondansetron INJ* 2 MG/ML VIAL ONE (09:38)
[2017-03-09] MEDS ORDERED: Propofol* 10 MG/ML 20 ML BTL IV PUSH ONE (09:38)
[2017-03-09] MEDS ORDERED: KETAMINE HCL* 50 MG/ML 10 ML VIAL ONE (09:38)
[2017-03-09] MEDS ORDERED: Lidocaine 2% PF * 5 ML VIAL ONE (09:38)
[2017-03-09] MEDS ORDERED: fentaNYL* 50 MCG/ML 2 ML VIAL (100 MCG VIAL) ONE (09:38)
[2017-03-09] MEDS ORDERED: Ketorolac INJ* 30 MG/ML 1 ML VIAL ONE (09:38)
[2017-03-09] MEDS ORDERED: Dexamethasone IV* 4 MG/ML 1 ML (4 MG) ONE (09:38)
--- NOTE | 2017-03-09 09:38 | RAD ---
HISTORY: Right renal calculus COMPARISONS: February 22, 2017 VIEWS: Frontal views of the abdomen. FINDINGS: BOWEL: There is a nonspecific bowel gas pattern, with nondilated small bowel gas noted. CALCULI: There is a 0.9 cm calculus along the proximal right ureter as indicated by the position of a right ureteral stent. This has slightly advanced when compared to the previous examination. BONES AND SOFT TISSUES: There are no osseous abnormalities. OTHER FINDINGS: The lung bases are clear. There is no subphrenic gas. IMPRESSION: RIGHT NEPHROLITHIASIS WITH A RIGHT URETERAL STENT
[2017-03-09] MEDS ORDERED: Midazolam* 1 MG/ML 5 ML VIAL (5 MG) ONE (09:39)
[2017-03-09] MEDS ORDERED: oxyCODONE/Acetamin 5/325 MG* TAB PO PRN (10:31)
[2017-03-09] MEDS ORDERED: Ondansetron INJ* 2 MG/ML VIAL IV PRN (10:31)
[2017-03-09] MEDS ORDERED: fentaNYL* 50 MCG/ML 2 ML VIAL (100 MCG VIAL) IV PRN (10:31)
[2017-03-09] MEDS ORDERED: DiMENhydriNATE IV* 50 MG/ML VIAL IV PUSH PRN (10:31)
[2017-03-09 12:49] VITALS: BP 118/76
--- NOTE | 2017-03-09 21:57 | OP ---
DATE OF OPERATION: 03/09/17 - [facility] DATE OF : 85 SURGEON: Jeff Pulido MD. ANESTHESIOLOGIST: Dr. Garg. ANESTHESIA: General. PRE-OP DIAGNOSIS: Right renal calculus. POST-OP DIAGNOSIS: Right renal calculus. OPERATIVE PROCEDURE: Shockwave lithotripsy, right renal calculus. COMPLICATIONS: None. POSTOPERATIVE CONDITION: Stable. INDICATIONS: Jaswinder Wen is a 32-year-old gentleman who had undergone urgent right stent insertion for large obstructing calculus in the right proximal ureter. He is now being brought in for lithotripsy. DESCRIPTION OF PROCEDURE: After induction of general anesthesia, the patient was placed on the lithotripsy table in supine position. The calculus which was adjacent to the proximal coil of the right stent was localized using fluoroscopy. Shockwave lithotripsy was commenced at a rate of 90 shocks per minute. After the initial 300 shocks, there was a pause in lithotripsy for several minutes in an effort to minimize any potential trauma to the kidney. Lithotripsy was then resumed and a total of 1600 shocks were administered. The patient tolerated the procedure satisfactorily and was transferred back to the recovery area in stable condition. [id number]/[facility] #: [id number] MTDD
== END 2017-03-09 13:07 | disposition home or self-care (01) ==
LOC: OR 08:34
PROVIDERS: ATTEND Urology
DX: N20.0 Calculus of kidney (principal); F17.210 Nicotine dependence, cigarettes, uncomplicated; I30.1 Infective pericarditis
CPT/HCPCS: 74000; A9270-GY; J1100; J1885; J1956; J2250; J2405; J2704; J3010

== ENCOUNTER 2017-05-21 04:16 | Emergency (ER) | payer BC ==
[2017-05-21] MEDS ORDERED: Aspirin Low Dose CHEW TAB* 81 MG PO ONE (05:28)
[2017-05-21 05:41] LABS: Comments Flag Yes; Hematocrit 44 % (42-52); Hemoglobin 15.2 g/dl (14.0-18.0); Mean Corpuscular HGB Conc 35 g/dl (31-36); Mean Corpuscular Hemoglobin 32 pg (27-31); Mean Corpuscular Volume 92 fL (80-94); Mean Platelet Volume 8 um3 (7.4-10.4); Red Blood Count 4.75 10^6/ul (4.0-5.4); Red Cell Distribution Width 13 % (10.5-15); White Blood Count 10.5 10^3/ul (3.5-10.8)
[2017-05-21 05:42] LABS: Add Diff/Slide Review? Slide Review Added
[2017-05-21 05:57] LABS: Albumin 4.3 g/dL (3.2-5.2); BUN/Creatinine Ratio 15.7 (8-20); Calcium 9.4 mg/dL (8.6-10.3); EGFR African American 127.4 (>60); EGFR Non-African American 99.1 (>60); Globulin 2.7 g/dL (2-4); Potassium 3.8 mmol/L (3.5-5.0); Total Bilirubin 0.6 mg/dL (0.2-1.0)
[2017-05-21 05:58] LABS: Troponin I 0.01 ng/mL (<0.04)
[2017-05-21] MEDS ORDERED: Ketorolac INJ* 60 MG/2 ML VIAL IV PUSH ONE (07:21)
--- NOTE | 2017-05-21 08:00 | RAD ---
HISTORY: Left-sided chest pain COMPARISONS: February 16, 2017 VIEWS: 1: frontal portable view of the chest at 5:35 AM FINDINGS: LINES AND TUBES: None. CARDIOMEDIASTINAL SILHOUETTE: The cardiomediastinal silhouette is normal for portable technique. PLEURA: The costophrenic angles are sharp. No pleural abnormalities are noted. LUNG PARENCHYMA: There is minimal linear opacification of left lung base ABDOMEN: The upper abdomen is clear. There is no subphrenic gas. BONES AND SOFT TISSUES: No bone or soft tissue abnormalities are noted. IMPRESSION: LINEAR ATELECTASIS OF LEFT LUNG BASE
--- NOTE | 2017-05-21 09:05 | ED ---
Chanelle Zambrano Rebecca, scribed for Daryn Limon MD on 05/21/17 at 0706 . HPI Chest Pain - HPI Summary HPI Summary: 32M daily smoker pw chest pain reproduced with mvmt and palpation 1 day similar to prior episodes. no sob. No pleuritic pain. no recent immobilizatoin. No trauma. No changes in pain with position. - History of Current Complaint Chief Complaint: EDChestPainROMI Time Seen by Provider: 05/21/17 05:28 Hx Obtained From: Patient Current Severity: Moderate Pain Intensity: 4 Pain Scale Used: 0-10 Numeric - Allergy/Home Medications Allergies/Adverse Reactions: Allergies Allergy/AdvReac Type Severity Reaction Status Date / Time Penicillins Allergy HIVES,VOMIT Verified 05/21/17 04:26 ING PMH/Surg Hx/FS Hx/Imm Hx Endocrine/Hematology History: Denies: Hx Anticoagulant Therapy, Hx Diabetes, Hx Thyroid Disease Cardiovascular History: Denies: Hx Hypertension, Hx Pacemaker/ICD Respiratory History: Denies: Hx Asthma, Hx Chronic Obstructive Pulmonary Disease (COPD) GI History: Reports: Hx Irritable Bowel - IMMODIUM AD, Other GI Disorders - IBS Denies: Hx Ulcer History: Reports: Hx Kidney Stones - RIGHT 02/2017 Denies: Hx Renal Disease - kidney stones Sensory History: Denies: Hx Contacts or Glasses, Hx Hearing Aid Opthamlomology History: Denies: Hx Contacts or Glasses Neurological History: Denies: Hx Dementia, Hx Seizures, Other Neuro Impairments/Disorders - DENIES Psychiatric History: Denies: Hx Substance Abuse - Surgical History Surgery Procedure, Year, and Place: 09/10/2012 CYSTOSCOPY WITH RIGHT URETERAL STENT, [facility] – [place]. 1997 RIGHT FEMUR REPAIR, [facility] [place]. 01/2017 cystoscopy, Right retrograde pylegram, Right Ureteral calculus, Right stent insertion Hx Anesthesia Reactions: No Infectious Disease History: No Infectious Disease History: Denies: Hx Hepatitis, Hx Human Immunodeficiency Virus (HIV), Traveled Outside the [place] in Last 30 Days - Family History Known Family History: Positive: Other - no anestesia rnx, no malignant hyperthermia - Social History Alcohol Use: Rare Hx Substance Use: No Substance Use Type: Reports: None Hx Tobacco Use: Yes Smoking Status (MU): Heavy Every Day Tobacco Smoker Type: eCigarettkamila Amount Used/How Often: smoking for 16 years Review of Systems Constitutional: Negative Eyes: Negative ENT: Negative Positive: Chest Pain Respiratory: Negative Gastrointestinal: Negative Musculoskeletal: Negative Skin: Negative Neurological: Negative All Other Systems Reviewed And Are Negative: Yes Physical Exam Triage Information Reviewed: Yes Vital Signs On Initial Exam: Initial Vitals Temp Pulse Resp BP Pulse Ox 99.1 F 105 16 132/83 98 05/21/17 04:19 05/21/17 04:19 05/21/17 04:19 05/21/17 04:19 05/21/17 04:19 Vital Signs Reviewed: Yes Appearance: Positive: Well-Appearing Skin: Positive: Warm, Dry Eyes: Positive: Normal, EOMI Respiratory/Lung Sounds: Positive: Clear to Auscultation, Breath Sounds Present , Decreased Breath Sounds Cardiovascular: Positive: Normal, RRR, Pulses are Symmetrical in both Upper and Lower Extremities Abdomen Description: Positive: Nontender Bowel Sounds: Positive: Present Musculoskeletal: Positive: Normal Neurological: Positive: Normal Diagnostics - Vital Signs Vital Signs Temp Pulse Resp BP Pulse Ox 05/21/17 06:00 89 100/65 95 05/21/17 05:30 93 111/65 94 05/21/17 05:00 93 108/66 99 05/21/17 04:49 95 110/66 99 05/21/17 04:19 99.1 F 105 16 132/83 98 - Laboratory Lab Results: Lab Results 05/21/17 05/21/17 05/21/17 Range/Units 04:41 04:41 04:41 WBC 10.5 (3.5-10.8) 10^3/ul RBC 4.75 (4.0-5.4) 10^6/ul Hgb 15.2 (14.0-18.0) g/dl Hct 44 (42-52) % MCV 92 (80-94) fL MCH 32 H (27-31) pg MCHC 35 (31-36) g/dl RDW 13 (10.5-15) % Plt Count 257 (150-450) 10^3/ul MPV 8 (7.4-10.4) um3 Neut % (Auto) 72.0 (38-83) % Lymph % (Auto) 11.3 L (25-47) % Emmet % (Auto) 15.4 H (1-9) % Eos % (Auto) 0.8 (0-6) % Baso % (Auto) 0.5 (0-2) % Absolute Neuts (auto) 7.6 (1.5-7.7) 10^3/ul Absolute Lymphs (auto) 1.2 (1.0-4.8) 10^3/ul Absolute Monos (auto) 1.6 H (0-0.8) 10^3/ul Absolute Eos (auto) 0.1 (0-0.6) 10^3/ul Absolute Basos (auto) 0 (0-0.2) 10^3/ul Absolute Nucleated RBC 0 10^3/ul Nucleated RBC % 0 INR (Anticoag Therapy) 0.96 (0.89-1.11) APTT 28.3 (26.0-36.3) seconds Sodium (133-145) mmol/L Potassium (3.5-5.0) mmol/L Chloride (101-111) mmol/L Carbon Dioxide (22-32) mmol/L Anion Gap (2-11) mmol/L BUN (6-24) mg/dL Creatinine (0.67-1.17) mg/dL Est GFR ( Amer) (>60) Est GFR (Non-Af Amer) (>60) BUN/Creatinine Ratio (8-20) Glucose (70-100) mg/dL Calcium (8.6-10.3) mg/dL Magnesium (1.9-2.7) mg/dL Total Bilirubin (0.2-1.0) mg/dL AST (13-39) U/L ALT (7-52) U/L Alkaline Phosphatase (34-104) U/L Troponin I (<0.04) ng/mL B-Natriuretic Peptide 16 ( - 100) pg/mL Total Protein (6.4-8.9) g/dL Albumin (3.2-5.2) g/dL Globulin (2-4) g/dL Albumin/Globulin Ratio (1-3) 05/21/17 Range/Units 04:41 WBC (3.5-10.8) 10^3/ul RBC (4.0-5.4) 10^6/ul Hgb (14.0-18.0) g/dl Hct (42-52) % MCV (80-94) fL MCH (27-31) pg MCHC (31-36) g/dl RDW (10.5-15) % Plt Count (150-450) 10^3/ul MPV (7.4-10.4) um3 Neut % (Auto) (38-83) % Lymph % (Auto) (25-47) % Emmet % (Auto) (1-9) % Eos % (Auto) (0-6) % Baso % (Auto) (0-2) % Absolute Neuts (auto) (1.5-7.7) 10^3/ul Absolute Lymphs (auto) (1.0-4.8) 10^3/ul Absolute Monos (auto) (0-0.8) 10^3/ul Absolute Eos (auto) (0-0.6) 10^3/ul Absolute Basos (auto) (0-0.2) 10^3/ul Absolute Nucleated RBC 10^3/ul Nucleated RBC % INR (Anticoag Therapy) (0.89-1.11) APTT (26.0-36.3) seconds Sodium 135 (133-145) mmol/L Potassium 3.8 (3.5-5.0) mmol/L Chloride 106 (101-111) mmol/L Carbon Dioxide 22 (22-32) mmol/L Anion Gap 7 (2-11) mmol/L BUN 14 (6-24) mg/dL Creatinine 0.89 (0.67-1.17) mg/dL Est GFR ( Amer) 127.4 (>60) Est GFR (Non-Af Amer) 99.1 (>60) BUN/Creatinine Ratio 15.7 (8-20) Glucose 99 (70-100) mg/dL Calcium 9.4 (8.6-10.3) mg/dL Magnesium 2.0 (1.9-2.7) mg/dL Total Bilirubin 0.60 (0.2-1.0) mg/dL AST 18 (13-39) U/L ALT 17 (7-52) U/L Alkaline Phosphatase 58 (34-104) U/L Troponin I 0.01 (<0.04) ng/mL B-Natriuretic Peptide ( - 100) pg/mL Total Protein 7.0 (6.4-8.9) g/dL Albumin 4.3 (3.2-5.2) g/dL Globulin 2.7 (2-4) g/dL Albumin/Globulin Ratio 1.6 (1-3) Result Diagrams: 05/21/17 04:41 05/21/17 04:41 Lab Statement: Any lab studies that have been ordered have been reviewed, and results considered in the medical decision making process. Chest Pain Course/Dx - Course Assessment/Plan: feels better with meds, instructed to fu with pmd, agrees to and understnads dc instructions. - Diagnoses Provider Diagnoses: Chest pain Discharge - Discharge Plan Condition: Stable Disposition: HOME Patient Education Materials: Chest Pain (ED) Forms: *Work Release Referrals: Hafsa Billings MD [Primary Care Provider] - René Lang MD [Medical Doctor] - Additional Instructions: PLEASE MAKE AN APPOINTMENT FIRST THING IN THE MORNING TO BE SEEN BY A FOIL OPERATOR WITHIN 1 WEEK. PLEASE RETURN TO THE EMERGENCY ROOM IF YOU HAVE ANY WORSENING OR CONCERNING SYMPTOMS The documentation as recorded by the Chanelle monreal Rebecca accurately reflects the service I personally performed and the decisions made by me, Daryn Limon MD.
[2017-05-21 09:27] VITALS: BP 106/69
== END 2017-05-21 09:20 | disposition home or self-care (01) ==
LOC: ED 04:16
DX: R07.9 Chest pain, unspecified (principal); F17.210 Nicotine dependence, cigarettes, uncomplicated
CPT/HCPCS: 36415; 71010; 80053; 83735; 83880; 84484; 85025; 85610; 85730; 93005; 96374; 99283; A9270-GY; J1885

== ENCOUNTER 2017-07-25 14:47 | Emergency (ER) | payer BC ==
--- NOTE | 2017-07-25 16:34 | RAD ---
INDICATION: Left upper chest pain after a fall COMPARISON: Most recent comparison chest x-rays dated May 21, 2017 TECHNIQUE: PA and lateral views of the chest were obtained. FINDINGS: The heart and mediastinum are normal in size and contour. The lungs are grossly clear. There is no evidence of large pleural effusion. Visualized bones are normal for the patient's age. There is no radiographic evidence of free air beneath the diaphragm IMPRESSION: No radiographic evidence of acute cardiopulmonary disease.
[2017-07-25 17:02] VITALS: BP 112/73
--- NOTE | 2017-07-25 17:59 | ED ---
Trey Zambrano Natalie, scribed for Toño Horn MD on 07/25/17 at 1529 . HPI Chest Pain - HPI Summary HPI Summary: The pt is a 32 y/o M presenting to the ED c/o left-sided chest wall s/p two falls on 07/15/17 and 07/22/17. When he first fell, he landed on his left side when getting out of his truck. When he fell the second time, he slipped while getting into his truck and hit his left ribcage on the safety bar. The pain is rated 5/10.The pain is aggravated by movement and alleviated by rest. 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 Pt additionally c/o sleep loss due to discomfort. - History of Current Complaint Chief Complaint: EDChestWallPain Time Seen by Provider: 07/25/17 15:06 Onset/Duration: Started Days Ago - first fall on 07/15/17 and second fall on , Still Present Timing: Lasting Days Initial Severity: Moderate Current Severity: Moderate Pain Intensity: 5 Pain Scale Used: 0-10 Numeric Chest Pain Location: Left Lateral Chest Pain Radiates: No Character: Dull/Aching Aggravating Factor(s): Movement Alleviating Factor(s): Rest Associated Signs and Symptoms: Positive: Other: - sleep loss - Allergy/Home Medications Allergies/Adverse Reactions: Allergies Allergy/AdvReac Type Severity Reaction Status Date / Time Penicillins Allergy HIVES,VOMIT Verified 07/25/17 14:57 ING PMH/Surg Hx/FS Hx/Imm Hx Previously Healthy: No Endocrine/Hematology History: Denies: Hx Anticoagulant Therapy, Hx Diabetes, Hx Thyroid Disease Cardiovascular History: Denies: Hx Hypertension, Hx Pacemaker/ICD Respiratory History: Denies: Hx Asthma, Hx Chronic Obstructive Pulmonary Disease (COPD) GI History: Reports: Hx Irritable Bowel - IMMODIUM AD, Other GI Disorders - IBS Denies: Hx Ulcer History: Reports: Hx Kidney Stones - RIGHT 02/2017 Denies: Hx Renal Disease - kidney stones Sensory History: Denies: Hx Contacts or Glasses, Hx Hearing Aid Opthamlomology History: Denies: Hx Contacts or Glasses Neurological History: Denies: Hx Dementia, Hx Seizures, Other Neuro Impairments/Disorders - DENIES Psychiatric History: Denies: Hx Substance Abuse - Surgical History Surgery Procedure, Year, and Place: 09/10/2012 CYSTOSCOPY WITH RIGHT URETERAL STENT, [facility] [place]. 1997 RIGHT FEMUR REPAIR, [facility] [place]. 01/2017 cystoscopy, Right retrograde pylegram, Right Ureteral calculus, Right stent insertion Hx Anesthesia Reactions: No Infectious Disease History: No Infectious Disease History: Denies: Hx Hepatitis, Hx Human Immunodeficiency Virus (HIV), Traveled Outside the [place] in Last 30 Days - Family History Known Family History: Positive: Other - no anestesia rnx, no malignant hyperthermia - Social History Alcohol Use: None Hx Substance Use: No Substance Use Type: Reports: None Hx Tobacco Use: Yes Smoking Status (MU): Heavy Every Day Tobacco Smoker Type: eCigarettes Amount Used/How Often: smoking for 16 years Review of Systems Positive: Chest Pain - left lateral chest wall Neurological: Other - sleep loss All Other Systems Reviewed And Are Negative: Yes Physical Exam - Summary Physical Exam Summary: Appearance: The patient is well-nourished in no acute distress and in no acute pain. Skin: The skin is warm and dry and skin color reflects adequate perfusion. HEENT: The head is normocephalic and atraumatic. The pupils are equal and reactive. The conjunctivae are clear and without drainage. Nares are patent and without drainage. Mouth reveals moist mucous membranes and the throat is without erythema and exudate. The external ears are intact. The ear canals are patent and without drainage. The tympanic membranes are intact. Neck: The neck is supple with full range of motion and non-tender. There are no carotid bruits. There is no neck vein distension. Respiratory: Tenderness in left anterior lateral lower chest wall. Lungs are clear to auscultation and breath sounds are symmetrical and equal. Cardiovascular: Heart is regular rate and rhythm. There is no murmur or rub auscultated. There is no peripheral edema and pulses are symmetrical and equal. Abdomen: The abdomen is soft and non-tender. There are normal bowel sounds heard in all four quadrants and there is no organomegaly palpated. Musculoskeletal: There is no back tenderness noted. Extremities are non-tender with full range of motion. There is good capillary refill. There is no peripheral edema or calf tenderness elicited. Neurological: Patient is alert and oriented to person, place and time. The patient has symmetrical motor strength in all four extremities. Cranial nerves are grossly intact. Deep tendon reflexes are symmetrical and equal in all four extremities. Psychiatric: The patient has an appropriate affect and does not exhibit any anxiety or depression. Triage Information Reviewed: Yes Vital Signs On Initial Exam: Initial Vitals Temp Pulse Resp BP Pulse Ox 100 F 95 20 136/75 98 07/25/17 14:50 07/25/17 14:50 07/25/17 14:50 07/25/17 14:50 07/25/17 14:50 Vital Signs Reviewed: Yes - Jody Coma Scale Coma Scale Total: 15 Diagnostics - Vital Signs Vital Signs Temp Pulse Resp BP Pulse Ox 07/25/17 15:18 80 99 07/25/17 15:16 120/74 07/25/17 14:50 100 F 95 20 136/75 98 - Laboratory Lab Statement: Any lab studies that have been ordered have been reviewed, and results considered in the medical decision making process. - Radiology cxr Xray Interpretation: No Acute Changes - No radiographic evidence of acute cardiopulmonary disease. ED physician has reviewed this report. Radiology Interpretation Completed By: Radiologist Chest Pain Course/Dx - Course Course Of Treatment: Mr. Wen presents with left CP exacerbated by movemnet after two falls in the last couple of weeks. He was tender but CXR did not reveal any pathology. I will treat him symptomatically. - Diagnoses Provider Diagnoses: Rib injury Discharge - Discharge Plan Condition: Stable Disposition: HOME Referrals: Hafsa Billings MD [Primary Care Provider] - 3 Days Additional Instructions: Follow up with your primary care physician in 3-5 days. I recommend Ibuprofen for pain as needed. Return to the Emergency Department for any new or worsening symptoms. The documentation as recorded by the Trey monreal Natalie accurately reflects the service I personally performed and the decisions made by me, Toño Horn MD.
== END 2017-07-25 17:05 | disposition home or self-care (01) ==
LOC: ED 14:47
DX: S29.8XXA Other specified injuries of thorax, initial encounter (principal); W01.0XXA Fall on same level from slipping, tripping and stumbling without subsequent striking against object, initial encounter; Y93.89 Activity, other specified; F17.290 Nicotine dependence, other tobacco product, uncomplicated; Z88.0 Allergy status to penicillin
CPT/HCPCS: 71020; 99282

== ENCOUNTER 2017-10-16 21:48 | Emergency (ER) | payer BC ==
[2017-10-16 22:19] LABS: Urine Appearance Cloudy; Urine Blood Negative (Negative); Urine Color Amber; Urine Ketones Negative (Negative); Urine Protein Negative (Negative); Urine Specific Gravity 1.024 (1.010-1.030); Urine Urobilinogen Negative (Negative)
[2017-10-16 22:41] LABS: ABS Basophils 0.1 10^3/ul (0-0.2); ABS Eosinophils 0.3 10^3/ul (0-0.6); ABS Lymphocytes 1.8 10^3/ul (1.0-4.8); ABS Monocytes 1.4 10^3/ul (0-0.8); ABS Neutrophils 13.6 10^3/ul (1.5-7.7); ABS Nucleated RBC 0 10^3/ul; Eosinophil % 1.5 % (0-6); Hematocrit 44 % (42-52); Hemoglobin 15.4 g/dl (14.0-18.0); Lymphocyte % 10.6 % (25-47); Mean Corpuscular HGB Conc 35 g/dl (31-36); Mean Corpuscular Hemoglobin 32 pg (27-31); Mean Corpuscular Volume 92 fL (80-94); Mean Platelet Volume 7.7 um3 (7.4-10.4); Nucleated Red Blood Cells % 0; Platelet Count 243 10^3/ul (150-450); Red Blood Count 4.82 10^6/ul (4.0-5.4); Red Cell Distribution Width 14 % (10.5-15); White Blood Count 17.2 10^3/ul (3.5-10.8)
[2017-10-16 23:00] LABS: EGFR Non-African American 100.4 (>60)
[2017-10-17] MEDS ORDERED: Ibuprofen TAB* 400 MG PO ONE (00:25)
[2017-10-17] MEDS ORDERED: Ibuprofen TAB* 800 MG PO ONE ×2 (00:55→00:57)
[2017-10-17 01:15] VITALS: BP 114/63
--- NOTE | 2017-10-17 07:19 | RAD ---
CLINICAL HISTORY: Right flank pain COMPARISON: February 22, 2017 TECHNIQUE: Multiple contiguous axial CT scans were obtained of the abdomen and pelvis, without intravenous contrast enhancement. Coronal and sagittal multiplanar reformations are submitted for review. Oral contrast was not administered. FINDINGS: The study is limited by the lack of intravenous contrast. This limits evaluation of the solid organs and vasculature. LUNG BASES: The lung bases are clear. LIVER: The liver is normal in shape, size, contour, and attenuation. BILE DUCTS: There is no intrahepatic or extrahepatic biliary dilatation. GALLBLADDER: The gallbladder is nondistended and is not well evaluated, but is grossly normal. PANCREAS: The pancreas is normal, without mass or ductal dilatation. SPLEEN: There is no calcified granulomas of the spleen. UPPER GI TRACT: Evaluation of the gastrointestinal tract is limited by incomplete gastric distention. The upper GI tract is unremarkable. SMALL BOWEL AND MESENTERY: The small bowel is normal in contour, course, and caliber. There is no obstruction or dilatation. COLON: The colon is normal in contour, course, caliber. There is no pericolonic inflammatory change. There is a tubular, vermiform, hollow viscus that is blind ending, and originates from the cecum, consistent with a normal appendix. There is no periappendiceal inflammatory change. This is best seen on coronal images 40 through 54. ADRENALS: Normal bilaterally. KIDNEYS: There are multiple bilateral renal calyceal stones, the largest measuring up to 0.6 cm on the left. There is no appreciable hydronephrosis. BLADDER: The bladder is incompletely distended but is grossly normal. PELVIC ORGANS: The prostate gland is mildly enlarged. The seminal vesicles are symmetric. AORTA: The aorta is normal. IVC: Unremarkable LYMPH NODES: There is no lymphadenopathy by size criteria. ABDOMINAL WALL: There is no evidence for abdominal wall hernia. BONES AND SOFT TISSUES: Unremarkable OTHER: None IMPRESSION: BILATERALLY NEPHROLITHIASIS, WITHOUT HYDRONEPHROSIS.
--- NOTE | 2017-10-17 21:42 | ED ---
Mahesh Zambrano Sixian, scribed for Bernardo Ahuja MD on 10/17/17 at 0041 . Back Pain - HPI Summary HPI Summary: This patient is a 32 year old M presenting to ED with a chief complaint of right -sided flank pain since a week ago, worsening since today. The patient rates the pain 5/10 in severity. Symptoms aggravated by movement. Symptoms alleviated by nothing. Patient reports intermittent dysuria. Patient denies N/V. Pt states that he has a history of kidney stones. - History of Current Complaint Chief Complaint: EDFlankPain Stated Complaint: RT SIDE PAIN Time Seen by Provider: 10/17/17 00:17 Hx Obtained From: Patient Onset/Duration: Gradual Onset, Lasting Weeks, Still Present Onset/Duration: Started Weeks Ago, Still Present Timing: Constant, Lasting Weeks Severity Currently: Moderate Pain Intensity: 5 Pain Scale Used: 0-10 Numeric Aggravating Symptom(s): Movement Alleviating Symptom(s): Nothing Associated Signs And Symptoms: Positive: Other - Patient reports intermittent dysuria and a syncope episode today. Patient denies N/V. - Allergies/Home Medications Allergies/Adverse Reactions: Allergies Allergy/AdvReac Type Severity Reaction Status Date / Time Penicillins Allergy Hives Verified 10/16/17 22:18 PMH/Surg Hx/FS Hx/Imm Hx Endocrine/Hematology History: Denies: Hx Anticoagulant Therapy, Hx Diabetes, Hx Thyroid Disease Cardiovascular History: Denies: Hx Hypertension, Hx Pacemaker/ICD Respiratory History: Denies: Hx Asthma, Hx Chronic Obstructive Pulmonary Disease (COPD) GI History: Reports: Hx Irritable Bowel - IMMODIUM AD, Other GI Disorders - IBS Denies: Hx Ulcer History: Reports: Hx Kidney Stones - RIGHT 02/2017 Denies: Hx Renal Disease - kidney stones Sensory History: Denies: Hx Contacts or Glasses, Hx Hearing Aid Opthamlomology History: Denies: Hx Contacts or Glasses Neurological History: Denies: Hx Dementia, Hx Seizures, Other Neuro Impairments/Disorders - DENIES Psychiatric History: Denies: Hx Substance Abuse - Surgical History Surgery Procedure, Year, and Place: 09/10/2012 CYSTOSCOPY WITH RIGHT URETERAL STENT, [facility]. 1998 RIGHT FEMUR REPAIR, [facility]. 01/2017 cystoscopy, Right retrograde pylegram, Right Ureteral calculus, Right stent insertion Hx Anesthesia Reactions: No Infectious Disease History: No Infectious Disease History: Denies: Hx Hepatitis, Hx Human Immunodeficiency Virus (HIV), Traveled Outside the [place] in Last 30 Days - Family History Known Family History: Positive: Other - no anestesia rnx, no malignant hyperthermia - Social History Alcohol Use: None Hx Substance Use: No Substance Use Type: Reports: None Hx Tobacco Use: Yes Smoking Status (MU): Heavy Every Day Tobacco Smoker Type: eCigarettes Amount Used/How Often: smoking for 16 years Review of Systems Positive: Fever Negative: Vomiting, Nausea Positive: dysuria Positive: Syncope All Other Systems Reviewed And Are Negative: Yes Physical Exam - Summary Physical Exam Summary: Appearance: Well-appearing, no distress, Well-nourished Skin: Warm, color reflects adequate perfusion Head: Normal Head/Face inspection Eyes: Conjunctiva clear ENT: Normal inspection Neck: Supple, no nodes, Respiratory: Lungs clear, Normal breath sounds, no respiratory distress Cardio: RRR, No murmur, pulses normal, brisk capillary refill Abdomen: soft, nontender, no guarding, no rebound; no CVA tenderness Bowel sounds: present Musculoskeletal: Strength Intact/ ROM intact. No calf tenderness. No edema. Neuro: Alert, muscle tone normal, facial symmetry, speech normal, sensory/motor intact Psychological: Normal Triage Information Reviewed: Yes Vital Signs On Initial Exam: Initial Vitals Temp Pulse Resp BP Pulse Ox 100.3 F 110 18 132/71 97 10/16/17 21:50 10/16/17 21:50 10/16/17 21:50 10/16/17 21:50 10/16/17 21:50 Vital Signs Reviewed: Yes Diagnostics - Vital Signs Vital Signs Temp Pulse Resp BP Pulse Ox 10/16/17 23:29 101.1 F 107 18 118/65 96 10/16/17 21:50 100.3 F 110 18 132/71 97 - Laboratory Lab Results: Lab Results 10/16/17 10/16/17 10/16/17 Range/Units 21:57 22:30 22:30 WBC 17.2 H (3.5-10.8) 10^3/ul RBC 4.82 (4.0-5.4) 10^6/ul Hgb 15.4 (14.0-18.0) g/dl Hct 44 (42-52) % MCV 92 (80-94) fL MCH 32 H (27-31) pg MCHC 35 (31-36) g/dl RDW 14 (10.5-15) % Plt Count 243 (150-450) 10^3/ul MPV 7.7 (7.4-10.4) um3 Neut % (Auto) 79.0 (38-83) % Lymph % (Auto) 10.6 L (25-47) % [place] % (Auto) 8.4 H (0-7) % Eos % (Auto) 1.5 (0-6) % Baso % (Auto) 0.5 (0-2) % Absolute Neuts (auto) 13.6 H (1.5-7.7) 10^3/ul Absolute Lymphs (auto) 1.8 (1.0-4.8) 10^3/ul Absolute Monos (auto) 1.4 H (0-0.8) 10^3/ul Absolute Eos (auto) 0.3 (0-0.6) 10^3/ul Absolute Basos (auto) 0.1 (0-0.2) 10^3/ul Absolute Nucleated RBC 0 10^3/ul Nucleated RBC % 0 Sodium 136 (133-145) mmol/L Potassium 3.9 (3.5-5.0) mmol/L Chloride 103 (101-111) mmol/L Carbon Dioxide 26 (22-32) mmol/L Anion Gap 7 (2-11) mmol/L BUN 13 (6-24) mg/dL Creatinine 0.88 (0.67-1.17) mg/dL Est GFR ( Amer) 129.1 (>60) Est GFR (Non-Af Amer) 100.4 (>60) BUN/Creatinine Ratio 14.8 (8-20) Glucose 108 H (70-100) mg/dL Calcium 9.8 (8.6-10.3) mg/dL Total Bilirubin 0.30 (0.2-1.0) mg/dL AST 20 (13-39) U/L ALT 20 (7-52) U/L Alkaline Phosphatase 59 (34-104) U/L C-React Prot High Sens 31.82 mg/L Total Protein 7.4 (6.4-8.9) g/dL Albumin 4.5 (3.2-5.2) g/dL Globulin 2.9 (2-4) g/dL Albumin/Globulin Ratio 1.6 (1-3) Lipase < 10 L (11.0-82.0) U/L Urine Color Louise Urine Appearance Cloudy Urine pH 6.0 (5-9) Ur Specific Powers 1.024 (1.010-1.030) Urine Protein Negative (Negative) Urine Ketones Negative (Negative) Urine Blood Negative (Negative) Urine Nitrate Negative (Negative) Urine Bilirubin Negative (Negative) Urine Urobilinogen Negative (Negative) Ur Leukocyte Esterase Negative (Negative) Urine Glucose Negative (Negative) Urine Ascorbic Acid * A (Negative) Result Diagrams: 10/16/17 22:30 10/16/17 22:30 Lab Statement: Any lab studies that have been ordered have been reviewed, and results considered in the medical decision making process. - CT abd/pel CT Interpretation Completed By: Radiologist - CT abd/pel reveals bilateral non- obstructing renal stones are noted. No ureteral stone hydronephrosis or urinary tract obstruction. No bowel obstruction, free air, free fluid. Negative for diverticulitis or colitis. Normal appendix. Slightly prominent prostate. Normal liver, normal spleen except for granulomas. Normal pancreas. Normal adrenal glands. Osseous structures are intact. ED physician has reviewed this radiology report. Re-Evaluation - Re-Evaluation First Eval Re-Evaluation Time: 01:04 Change: Improved Comment: pt resting comfortably in bed; pt flank pain improved with po analgesia. plan for symptomatic tx with Urology f/u. Pt's pain consistent with renal colic vs musculoskeletal pain. Back Pain Course/Dx - Diagnoses Differential Diagnosis/HQI/PQRI: Positive: Aneurysm, Arthritis, Fracture, Herniated Disc, Renal Colic, Strain, Sprain Provider Diagnoses: Flank pain Discharge - Sign-Out/Discharge Documenting (check all that apply): Discharge - Discharge Plan Condition: Improved Disposition: HOME Prescriptions: Ibuprofen TAB* [Motrin TAB* 800 MG] 800 mg PO Q6H PRN #20 tab PRN Reason: Pain Patient Education Materials: Flank Pain (ED) Referrals: Hafsa Billings MD [Primary Care Provider] - Jeff Pulido MD [Medical Doctor] - 3 Days Additional Instructions: RETURN TO THE EMERGENCY DEPARTMENT FOR CHANGING OR WORSENING SYMPTOMS. - Billing Disposition and Condition Condition: IMPROVED Disposition: HOME The documentation as recorded by the Mahesh monreal Sixian accurately reflects the service I personally performed and the decisions made by me, Bernardo Ahuja MD.
== END 2017-10-17 01:15 | disposition home or self-care (01) ==
LOC: ED 21:48
DX: N20.0 Calculus of kidney (principal); Z87.442 Personal history of urinary calculi; R50.9 Fever, unspecified; R30.0 Dysuria; R55 Syncope and collapse; Z88.0 Allergy status to penicillin; F17.210 Nicotine dependence, cigarettes, uncomplicated
CPT/HCPCS: 36415; 74176; 80053; 81003; 83690; 85025; 86141; 99282; A9270-GY

== ENCOUNTER 2017-10-21 18:51 | Emergency (ER) | payer BC ==
[2017-10-21 20:32] LABS: Hematocrit 45 % (42-52); Hemoglobin 15.7 g/dl (14.0-18.0); Mean Corpuscular HGB Conc 35 g/dl (31-36); Mean Corpuscular Hemoglobin 32 pg (27-31); Mean Corpuscular Volume 94 fL (80-94); Platelet Count 305 10^3/ul (150-450); Red Blood Count 4.85 10^6/ul (4.0-5.4); Red Cell Distribution Width 14 % (10.5-15); White Blood Count 14.6 10^3/ul (3.5-10.8)
[2017-10-21 20:34] LABS: ABS Basophils 0.1 10^3/ul (0-0.2); ABS Eosinophils 0.3 10^3/ul (0-0.6); ABS Lymphocytes 2.7 10^3/ul (1.0-4.8); ABS Monocytes 1.8 10^3/ul (0-0.8); ABS Neutrophils 9.6 10^3/ul (1.5-7.7); ABS Nucleated RBC 0 10^3/ul; Eosinophil % 2.3 % (0-6); Lymphocyte % 18.7 % (25-47); Nucleated Red Blood Cells % 0
[2017-10-21 20:49] LABS: EGFR Non-African American 117.1 (>60)
[2017-10-21] MEDS ORDERED: NS 0.9% 1000 ML* 1,000 ML IV ONE (22:03)
[2017-10-21] MEDS ORDERED: Albuterol/Ipratropium NEB.SOL* Albuterol 2.5 MG/Ipratropium 0.5 MG 3 ML INH ONE (22:03)
[2017-10-21] MEDS ORDERED: Ketorolac INJ* 30 MG/ML 1 ML VIAL IV PUSH ONE (22:03)
[2017-10-21] MEDS ORDERED: Codeine TAB* 30 MG PO ONE (22:49)
[2017-10-22] VITALS: BP 115/66
--- NOTE | 2017-10-22 00:43 | ED ---
Mirian Zambrano Abhishek, scribed for Osorio Kelley MD on 10/21/17 at 2246 . HPI Febrile Illness - HPI Summary HPI Summary: This patient is a 32 year old M presenting to [facility] accompanied by female and children with a chief complaint of fever since Thursday. The pt reports of intermittent fevers and also nasal discharge Sore throat, body aches along with coughing. The patient rates the pain 0/10 in severity. Symptoms aggravated by nothing. Symptoms alleviated by nothing. Pt also reports dizziness and lightheadedness. - History of Current Complaint Chief Complaint: EDDizziness Time Seen by Provider: 10/21/17 21:57 Hx Obtained From: Patient Onset/Duration: Started Days Ago - 10/16/17 (since Thursday) Timing: Constant Initial Severity: Mild Current Severity: None Pain Intensity: 0 Pain Scale Used: 0-10 Numeric Aggravating Factors: Nothing Alleviating Factors: Nothing Associated Signs and Symptoms: Dizziness, Other: - sore throat, body aches, nasal discharge, lightheadedness, coughing, and fevers - Allergy/Home Medications Allergies/Adverse Reactions: Allergies Allergy/AdvReac Type Severity Reaction Status Date / Time Penicillins Allergy Hives Verified 10/21/17 18:59 PMH/Surg Hx/FS Hx/Imm Hx Endocrine/Hematology History: Denies: Hx Anticoagulant Therapy, Hx Diabetes, Hx Thyroid Disease Cardiovascular History: Denies: Hx Hypertension, Hx Pacemaker/ICD Respiratory History: Denies: Hx Asthma, Hx Chronic Obstructive Pulmonary Disease (COPD) GI History: Reports: Hx Irritable Bowel - IMMODIUM AD, Other GI Disorders - IBS Denies: Hx Ulcer History: Reports: Hx Kidney Stones - RIGHT 02/2017 Denies: Hx Renal Disease - kidney stones Sensory History: Denies: Hx Contacts or Glasses, Hx Hearing Aid Opthamlomology History: Denies: Hx Contacts or Glasses Neurological History: Denies: Hx Dementia, Hx Seizures, Other Neuro Impairments/Disorders - DENIES Psychiatric History: Denies: Hx Substance Abuse - Surgical History Surgery Procedure, Year, and Place: 09/10/2012 CYSTOSCOPY WITH RIGHT URE[place]AL STENT, [facility] [place]. 1997 RIGHT FEMUR REPAIR, [facility] [place]. 01/2017 cystoscopy, Right retrograde pylegram, Right Ureteral calculus, Right stent insertion Hx Anesthesia Reactions: No Infectious Disease History: No Infectious Disease History: Denies: Hx Hepatitis, Hx Human Immunodeficiency Virus (HIV), Traveled Outside the US in Last 30 Days - Family History Known Family History: Positive: Other - no anestesia rnx, no malignant hyperthermia - Social History Alcohol Use: None Hx Substance Use: No Substance Use Type: Reports: None Hx Tobacco Use: Yes Smoking Status (MU): Heavy Every Day Tobacco Smoker Type: eCigarettes Amount Used/How Often: smoking for 16 years Review of Systems Positive: Fever - intermittent Eyes: Negative ENT: Other - nasal discharge Positive: Sore Throat Positive: Cough Gastrointestinal: Negative Genitourinary: Negative Musculoskeletal: Other - body aches Skin: Negative Neurological: Other - dizziness, and lightheadedness Psychological: Normal All Other Systems Reviewed And Are Negative: Yes Physical Exam - Summary Physical Exam Summary: Appearance: Well appearing, no pain distress Skin: Skin is hot to touch Head/face: normal Eyes: EOMI, JITENDRA ENT: Clear nasal discharge, erythematous of throat Neck: supple, non-tender Respiratory: CTA, breath sounds present Cardiovascular: RRR, pulses symmetrical Abdomen: non-tender, soft Bowel Sounds: present Musculoskeletal: normal, strength/ROM intact Neuro: normal, sensory motor intact, A&Ox3 Triage Information Reviewed: Yes Vital Signs On Initial Exam: Initial Vitals Temp Pulse Resp BP Pulse Ox 100.0 F 100 18 137/73 97 10/21/17 18:56 10/21/17 18:56 10/21/17 18:56 10/21/17 18:56 10/21/17 18:56 Vital Signs Reviewed: Yes Diagnostics - Vital Signs Vital Signs Temp Pulse Resp BP Pulse Ox 10/21/17 22:25 96 18 96 10/21/17 20:48 99.4 F 94 129/79 98 10/21/17 18:56 100.0 F 100 18 137/73 97 - Laboratory Lab Results: Lab Results 10/21/17 10/21/17 10/21/17 Range/Units 20:16 20:16 20:21 WBC 14.6 H (3.5-10.8) 10^3/ul RBC 4.85 (4.0-5.4) 10^6/ul Hgb 15.7 (14.0-18.0) g/dl Hct 45 (42-52) % MCV 94 (80-94) fL MCH 32 H (27-31) pg MCHC 35 (31-36) g/dl RDW 14 (10.5-15) % Plt Count 305 (150-450) 10^3/ul MPV 8.0 (7.4-10.4) um3 Neut % (Auto) 66.0 (38-83) % Lymph % (Auto) 18.7 L (25-47) % Hubbard % (Auto) 12.6 H (0-7) % Eos % (Auto) 2.3 (0-6) % Baso % (Auto) 0.4 (0-2) % Absolute Neuts (auto) 9.6 H (1.5-7.7) 10^3/ul Absolute Lymphs (auto) 2.7 (1.0-4.8) 10^3/ul Absolute Monos (auto) 1.8 H (0-0.8) 10^3/ul Absolute Eos (auto) 0.3 (0-0.6) 10^3/ul Absolute Basos (auto) 0.1 (0-0.2) 10^3/ul Absolute Nucleated RBC 0 10^3/ul Nucleated RBC % 0 Sodium 138 L (139-145) mmol/L Potassium 4.4 (3.5-5.0) mmol/L Chloride 104 (101-111) mmol/L Carbon Dioxide 25 (22-32) mmol/L Anion Gap 9 (2-11) mmol/L BUN 13 (6-24) mg/dL Creatinine 0.77 (0.67-1.17) mg/dL Est GFR ( Amer) 150.6 (>60) Est GFR (Non-Af Amer) 117.1 (>60) BUN/Creatinine Ratio 16.9 (8-20) Glucose 67 L (70-100) mg/dL Calcium 10.2 (8.6-10.3) mg/dL Influenza A (Rapid) Negative (Negative) Influenza B (Rapid) Negative (Negative) Result Diagrams: 10/21/17 20:16 10/21/17 20:16 Lab Statement: Any lab studies that have been ordered have been reviewed, and results considered in the medical decision making process. - Radiology Chest X-ray Radiology Interpretation Completed By: ED Physician - As per ED Physician, the chest x-ray reveals negative findings. Re-Evaluation - Re-Evaluation 2240 Re-Evaluation Time: 22:40 Comment: Pt improved with IV fluids and breathing treatment. Course/Dx - Course Course Of Treatment: URI sx and now cough, sinus discomfort and fever. Neg for flu. Labs unremarkable. No infiltrate. PCN allergy. Start zpak for sinus. Codeine here for cough. F/U PMD. Improved with fluids, breathing tx. - Diagnoses Provider Diagnoses: Cough, Acute sinusitis Discharge - Sign-Out/Discharge Documenting (check all that apply): Discharge - Discharge Home - Discharge Plan Condition: Good Disposition: HOME Prescriptions: Albuterol HFA INHALER* [Ventolin HFA Inhaler*] 1 - 2 puff INH Q4H PRN #1 mdi PRN Reason: Sob/Wheezing Azithromycin TAB* [Zithromax TAB (Z-RAFI) 250 mg #6 tabs] 2 tab PO .TODAY, THEN 1 DAILY #1 rafi predniSONE TAB* [Deltasone TAB*] 50 mg PO DAILY #4 tab Patient Education Materials: Sinusitis (ED) Forms: *Work Release Referrals: Hafsa Billings MD [Primary Care Provider] - Additional Instructions: Humidifier while sleeping. Mucinex DM. Tylenol/ibuprofen for fever or body aches. Return with difficulty breathing, vomiting, worse or other concerns. - Billing Disposition and Condition Condition: GOOD Disposition: HOME The documentation as recorded by the Mirian monreal Abhishek accurately reflects the service I personally performed and the decisions made by me, Osorio Kelley MD.
--- NOTE | 2017-10-22 07:34 | RAD ---
HISTORY: Cough, fever COMPARISONS: July 25, 2017 VIEWS: 4: Frontal dual-energy and lateral views of the chest. FINDINGS: CARDIOMEDIASTINAL SILHOUETTE: The cardiomediastinal silhouette is normal. DEBORAH: The deborah are normal. PLEURA: The costophrenic angles are sharp. No pleural abnormalities are noted. LUNG PARENCHYMA: The lungs are clear. ABDOMEN: The upper abdomen is clear. There is no subphrenic gas. BONES AND SOFT TISSUES: No bone or soft tissue abnormalities are noted. OTHER: None. IMPRESSION: NO ACTIVE CARDIOPULMONARY DISEASE.
== END 2017-10-21 23:55 | disposition home or self-care (01) ==
LOC: ED 18:51
DX: R42 Dizziness and giddiness (principal); J01.90 Acute sinusitis, unspecified; J02.9 Acute pharyngitis, unspecified; R05 Cough; R50.9 Fever, unspecified; F17.210 Nicotine dependence, cigarettes, uncomplicated
CPT/HCPCS: 36415; 71046; 80048; 85025; 87502; 94640; 96374; 99284; A9270-GY; J1885

== ENCOUNTER 2017-12-13 13:53 | Emergency (ER) | payer BC ==
[2017-12-13 16:32] LABS: Urine Appearance Cloudy; Urine Blood Negative (Negative); Urine Color Amber; Urine Ketones Negative (Negative); Urine Protein Negative (Negative); Urine Specific Gravity 1.019 (1.010-1.030); Urine Urobilinogen Negative (Negative)
--- NOTE | 2017-12-13 16:52 | RAD ---
CLINICAL HISTORY: Left flank pain COMPARISON: October 16, 2017 TECHNIQUE: Multiple contiguous axial CT scans were obtained of the abdomen and pelvis, without intravenous contrast enhancement. Coronal and sagittal multiplanar reformations are submitted for review. Oral contrast was not administered. FINDINGS: The study is limited by the lack of intravenous contrast. This limits evaluation of the solid organs and vasculature. LUNG BASES: The lung bases are clear. LIVER: The liver is normal in shape, size, contour, and attenuation. BILE DUCTS: There is no intrahepatic or extrahepatic biliary dilatation. GALLBLADDER: The gallbladder is normal, without pericholecystic inflammatory change. PANCREAS: The pancreas is normal, without mass or ductal dilatation. SPLEEN: There is calcified granuloma of the spleen. UPPER GI TRACT: Evaluation of the gastrointestinal tract is limited by incomplete gastric distention. The upper GI tract is unremarkable. SMALL BOWEL AND MESENTERY: The small bowel is normal in contour, course, and caliber. There is no obstruction or dilatation. COLON: The colon is normal in contour, course, caliber. There is no pericolonic inflammatory change. There is a tubular, vermiform, hollow viscus that is blind ending, and originates from the cecum, consistent with a normal appendix. There is no periappendiceal inflammatory change. There is is best seen on axial images 68 through 98. ADRENALS: Normal bilaterally. KIDNEYS: There are multiple bilateral renal calyceal stones. There is a 1 cm calculus of the left UPJ. There is moderate pelvocaliectasis. BLADDER: The bladder is incompletely distended but is grossly normal. PELVIC ORGANS: The prostate is mildly enlarged. The seminal vesicles are symmetric. AORTA: The aorta is normal. IVC: Unremarkable LYMPH NODES: There is no lymphadenopathy by size criteria. ABDOMINAL WALL: There is no evidence for abdominal wall hernia. BONES AND SOFT TISSUES: There are mild diffuse degenerative changes. OTHER: None IMPRESSION: BILATERAL NEPHROLITHIASIS INCLUDING A 1 CM CALCULUS OF THE LEFT UPJ WITH MODERATE LEFT-SIDED HYDRONEPHROSIS.
[2017-12-13 17:22] VITALS: BP 119/80
--- NOTE | 2017-12-13 17:39 | ED ---
Timmy Zambrano Elizabeth, scribed for Toño Horn MD on 12/13/17 at 1619 . GI/ HPI - HPI Summary HPI Summary: This patient is a 32 year old M presenting to [facility] with a chief complaint of hematuria since 2 days ago. The patient rates the pain 4/10 in severity. Symptoms aggravated by position. Symptoms alleviated by nothing. Patient reports intermittent left flank pain since 1 week ago and dysuria. The patient has hx of kidney stones and infection from kidney stones. Has been taking ibuprofen but it has not helped with the pain. - History of Current Complaint Chief Complaint: EDFlankPain Time Seen by Provider: 12/13/17 16:02 Stated Complaint: LT FLANK & GROIN PAIN Hx Obtained From: Patient Onset/Duration: Started Days Ago - 1 week ago, Still Present Timing: Intermittent Severity: Mild Current Severity: Mild Pain Intensity: 4 Location of Pain: Flank - left flank Pain Characteristics: Unable to describe Pain Radiates to: Flank Associated Signs and Symptoms: Positive: Hematuria, Dysuria, Flank Pain - left flank pain Aggravating Factor(s): Sitting Alleviating Factor(s): Nothing - Allergy/Home Medications Allergies/Adverse Reactions: Allergies Allergy/AdvReac Type Severity Reaction Status Date / Time Penicillins Allergy Hives Verified 10/21/17 18:59 PMH/Surg Hx/FS Hx/Imm Hx Endocrine/Hematology History: Denies: Hx Anticoagulant Therapy, Hx Diabetes, Hx Thyroid Disease Cardiovascular History: Denies: Hx Hypertension, Hx Pacemaker/ICD Respiratory History: Denies: Hx Asthma, Hx Chronic Obstructive Pulmonary Disease (COPD) GI History: Reports: Hx Irritable Bowel - IMMODIUM AD, Other GI Disorders - IBS Denies: Hx Ulcer History: Reports: Hx Kidney Stones - RIGHT 02/2017 Denies: Hx Renal Disease - kidney stones Sensory History: Denies: Hx Contacts or Glasses, Hx Hearing Aid Opthamlomology History: Denies: Hx Contacts or Glasses Neurological History: Denies: Hx Dementia, Hx Seizures, Other Neuro Impairments/Disorders - DENIES Psychiatric History: Denies: Hx Substance Abuse - Surgical History Surgery Procedure, Year, and Place: 09/10/2012 CYSTOSCOPY WITH RIGHT URETERAL STENT, [facility] [place]. 1997 RIGHT FEMUR REPAIR, [facility] [place]. 01/2017 cystoscopy, Right retrograde pylegram, Right Ureteral calculus, Right stent insertion Hx Anesthesia Reactions: No Infectious Disease History: No Infectious Disease History: Denies: Hx Hepatitis, Hx Human Immunodeficiency Virus (HIV), Traveled Outside the US in Last 30 Days - Family History Known Family History: Positive: Other - no anestesia rnx, no malignant hyperthermia - Social History Alcohol Use: None Hx Substance Use: No Substance Use Type: Reports: None Hx Tobacco Use: Yes Smoking Status (MU): Heavy Every Day Tobacco Smoker Type: eCigarettes Amount Used/How Often: smoking for 16 years Review of Systems Negative: Epistaxis Negative: Chest Pain Positive: dysuria, flank pain - left flank pain, hematuria Negative: Headache All Other Systems Reviewed And Are Negative: Yes Physical Exam - Summary Physical Exam Summary: Appearance: The patient is well-nourished in no acute distress and in no acute pain. Skin: The skin is warm and dry and skin color reflects adequate perfusion. HEENT: The head is normocephalic and atraumatic. The pupils are equal and reactive. The conjunctivae are clear and without drainage. Nares are patent and without drainage. Mouth reveals moist mucous membranes and the throat is without erythema and exudate. The external ears are intact. The ear canals are patent and without drainage. The tympanic membranes are intact. Neck: the neck is supple with full range of motion and non-tender. There are no carotid bruits. There is no neck vein distension. Respiratory: Chest is non-tender. Lungs are clear to auscultation and breath sounds are symmetrical and equal. Cardiovascular: Heart is regular rate and rhythm. There is no murmur or rub auscultated. There is no peripheral edema and pulses are symmetrical and equal. Abdomen: The abdomen is soft and non-tender. There are normal bowel sounds heard in all four quadrants and there is no organomegaly palpated. Musculoskeletal: There is no back tenderness noted. Extremities are non-tender with full range of motion. There is good capillary refill. There is no peripheral edema or calf tenderness elicited. Neurological: Patient is alert and oriented to person, place and time. The patient has symmetrical motor strength in all four extremities. Cranial nerves are grossly intact. Deep tendon reflexes are symmetrical and equal in all four extremities. Psychiatric: The patient has an appropriate affect and does not exhibit any anxiety or depression. Triage Information Reviewed: Yes Vital Signs On Initial Exam: Initial Vitals Temp Pulse Resp BP Pulse Ox 99.1 F 83 16 135/82 100 12/13/17 13:56 12/13/17 13:56 12/13/17 13:56 12/13/17 13:56 12/13/17 13:56 Vital Signs Reviewed: Yes Diagnostics - Vital Signs Vital Signs Temp Pulse Resp BP Pulse Ox 12/13/17 13:56 99.1 F 83 16 135/82 100 - Laboratory Lab Results: Lab Results 12/13/17 Range/Units 16:24 Urine Color Louise Urine Appearance Cloudy Urine pH 7.0 (5-9) Ur Specific [place] 1.019 (1.010-1.030) Urine Protein Negative (Negative) Urine Ketones Negative (Negative) Urine Blood Negative (Negative) Urine Nitrate Negative (Negative) Urine Bilirubin Negative (Negative) Urine Urobilinogen Negative (Negative) Ur Leukocyte Esterase Negative (Negative) Urine Glucose Negative (Negative) Lab Statement: Any lab studies that have been ordered have been reviewed, and results considered in the medical decision making process. - CT Abd/Pelvis CT CT Interpretation: Positive (See Comments) - IMPRESSION: BILATERAL NEPHROLITHIASIS INCLUDING A 1 CM CALCULUS OF THE LEFT UPJ WITH MODERATE LEFT- SIDED HYDRONEPHROSIS. Dr. Horn has reviewed this report. CT Interpretation Completed By: Radiologist CONRAD Course/Dx - Course Course Of Treatment: Mr. Wen has been suffering from a one cm left UPJ stone with hydronephrosis for a week. His U/A is negative. He is relatively comfortable but I don't think he is going to pass this on his own. We have no urology on this weekend but he is not interested in transfer. He will call Dr. Garcia's office tomorrow. He does not want pain medications as he wants to go to work which he did all last week. - Diagnoses Provider Diagnoses: Kidney stone Discharge - Sign-Out/Discharge Documenting (check all that apply): Discharge/Admit/Transfer - Discharge Plan Condition: Stable Disposition: HOME Prescriptions: Tamsulosin CAP* [Flomax CAP*] 0.4 mg PO DAILY #7 cap Patient Education Materials: Kidney Stones (ED) Referrals: Jose Garcia MD [Medical Doctor] - 1 Day Additional Instructions: Take Ibuprofen for pain management. Follow up tomorrow with Dr. Garcia, urologist. Return to the emergency department with any new or worsening symptoms. - Billing Disposition and Condition Condition: STABLE Disposition: HOME The documentation as recorded by the Timmy monreal Elizabeth accurately reflects the service I personally performed and the decisions made by me, Toño Horn MD.
== END 2017-12-13 17:26 | disposition home or self-care (01) ==
LOC: ED 13:53
DX: N20.0 Calculus of kidney (principal); N13.30 Unspecified hydronephrosis; F17.290 Nicotine dependence, other tobacco product, uncomplicated; Z88.0 Allergy status to penicillin
CPT/HCPCS: 74176; 81003; 99282

== ENCOUNTER 2017-12-16 14:52 | Day surgery (SDC) | payer BC ==
[~2017-12-16 14:52] MED LIST changes: +Dexamethasone IV* 4 MG/ML 1 ML (4 MG) IV SLOW PU ONE; -Metoclopramide TAB* 10 MG PO ONE
[2017-12-16] MEDS ORDERED: Dexamethasone IV* 4 MG/ML 1 ML (4 MG) ONE (15:05)
[2017-12-16] MEDS ORDERED: Famotidine IV* 10 MG/ML 2 ML (20 mg) ONE (15:05)
[2017-12-16] MEDS ORDERED: Iohexol 180 (CONTRAST) 10 ML SDV IV ONE (16:04)
[2017-12-16] MEDS ORDERED: Gentamicin ADULT (*) 40 MG/ML VIAL ONE (16:27)
[2017-12-16] MEDS ORDERED: Levofloxacin 500 MG IVPREMIX(* 500 MG/100 ML BAG IVPB ONE (16:30)
[2017-12-16] MEDS ORDERED: Lidocaine 2% PF * 5 ML VIAL ONE (16:33)
[2017-12-16] MEDS ORDERED: Propofol* 10 MG/ML 20 ML BTL IV PUSH ONE (16:33)
[2017-12-16] MEDS ORDERED: fentaNYL* 50 MCG/ML 2 ML VIAL (100 MCG VIAL) ONE (16:34)
[2017-12-16] MEDS ORDERED: oxyCODONE/Acetamin 5/325 MG* TAB PO PRN (16:52)
[2017-12-16] MEDS ORDERED: HYDROcodone/ACETAMIN 5-325 MG* 1 TAB PO PRN (16:52)
[2017-12-16] MEDS ORDERED: fentaNYL* 50 MCG/ML 2 ML VIAL (100 MCG VIAL) IV PRN (16:52)
[2017-12-16] MEDS ORDERED: Naloxone* 0.4 MG/ML 1 ML VIAL IV PRN (16:52)
[2017-12-16] MEDS ORDERED: Ketorolac INJ* 30 MG/ML 1 ML VIAL IV PRN (16:52)
--- NOTE | 2017-12-16 18:39 | RAD ---
INDICATION: Cystogram and LEFT retrograde pyelogram and stent placement. COMPARISON: December 13, 2017 CT. TECHNIQUE: 6 seconds fluoroscopy. FINDINGS: Spot images document LEFT ureteral stent placement. Retrograde pyelogram demonstrates only mild calyceal blunting. IMPRESSION: Procedural fluoroscopy. CPT II Codes: G9500
[2017-12-16 19:17] VITALS: BP 147/88
--- NOTE | 2017-12-16 19:52 | RAD ---
Indication: Post ureteral stent placement. Comparison: Intraoperative spot films of the same date. December 13, 2017 CT. Technique: Supine view of the abdomen. Report: Unremarkable bowel gas pattern. 0.8 cm maximum dimension stone visualized at the level of the LEFT renal pelvis. LEFT ureteral stent in place. 2 small stones measuring up to 3 mm visualized at the lower pole of the RIGHT kidney. LEFT pelvic phlebolith noted. Unremarkable soft tissue contours. IMPRESSION: 0.8 cm maximum dimension stone visualized at the level of the LEFT renal pelvis. LEFT ureteral stent in place.
--- NOTE | 2017-12-17 19:19 | OP ---
DATE OF OPERATION: 12/16/17 - [facility] DATE OF : 85 SURGEON: Jeff Pulido MD ANESTHESIA: General. ANESTHESIOLOGIST: Dr. Sullivan. PRE-OP DIAGNOSES: 1. Left hydronephrosis. 2. Calculus left ureteropelvic junction. 3. Left renal calculi. POST-OP DIAGNOSES: 1. Left hydronephrosis. 2. Calculus left ureteropelvic junction. 3. Left renal calculi. OPERATIVE PROCEDURE: Cystoscopy, left retrograde pyelogram, left ureteral calculus manipulation, and left stent insertion. COMPLICATIONS: None. STENT USED: A 6-Senegalese stent, left ureter. POSTOPERATIVE CONDITION: Stable. OPERATIVE FINDINGS: Left hydronephrosis secondary to obstructing calculus left ureteropelvic junction. INDICATIONS: Jaswinder Wen is a 32-year-old gentleman with a history of recurrent renal calculi. He was evaluated for approximately 1 cm obstructing calculus at the left ureteropelvic junction with additional left renal calculi. He is being brought in for left stent insertion to be followed at some point in the near future by lithotripsy for definitive treatment of calculi. DESCRIPTION OF PROCEDURE: After induction of general anesthesia, the patient was placed in dorsal lithotomy position. Sequential compression devices were in place and functioning. Initial cystoscopy revealed normal-appearing urethra with a very mild stricture at the meatus and normal-appearing bladder. A guidewire was introduced into the left ureter, retrograde pyelogram revealed moderate left hydronephrosis and open-ended catheter was advanced under fluoroscopic monitoring and carefully advanced to the level of the ureteropelvic junction to facilitate proximal manipulation of the calculus. A 6 -Senegalese stent was introduced and positioned under fluoroscopy with good proximal and distal positioning obtained. The bladder was emptied. The patient tolerated the procedure satisfactory and was transferred back to recovery area in stable condition. [id number]/[facility] #: [id number] MTDD
== END 2017-12-16 19:47 | disposition home or self-care (01) ==
LOC: OR 14:52
PROVIDERS: ATTEND Urology
DX: N13.2 Hydronephrosis with renal and ureteral calculous obstruction (principal); Z87.442 Personal history of urinary calculi; R31.0 Gross hematuria; F17.200 Nicotine dependence, unspecified, uncomplicated; K58.9 Irritable bowel syndrome, unspecified
CPT/HCPCS: 74018; 74420; C1876; J1100; J1580; J1956; J2704; J3010

== ENCOUNTER 2017-12-28 06:54 | Day surgery (SDC) | payer BC ==
[~2017-12-28 06:54] MED LIST changes: -Dexamethasone IV* 4 MG/ML 1 ML (4 MG) IV SLOW PU ONE; -Famotidine IV* 10 MG/ML 2 ML (20 mg) IV ONE
--- NOTE | 2017-12-28 08:06 | RAD ---
HISTORY: Shock wave lithotripsy COMPARISONS: December 16, 2017 VIEWS: Frontal views of the abdomen. FINDINGS: BOWEL: There is a nonspecific bowel gas pattern, with nondilated small bowel gas noted. CALCULI: Again noted is a 0.8 cm calculus of the proximal left ureter. Again noted are small calculi overlying the right renal parenchymal shadow. A left ureteral stent is noted. BONES AND SOFT TISSUES: There are no osseous abnormalities. OTHER FINDINGS: The lung bases are clear. There is no subphrenic gas. IMPRESSION: STABLE BILATERAL NEPHROLITHIASIS WITH A LEFT URETERAL STENT
[2017-12-28] MEDS ORDERED: Midazolam* 1 MG/ML 2 ML VIAL (2 MG) ONE (08:15)
[2017-12-28] MEDS ORDERED: fentaNYL* 50 MCG/ML 2 ML VIAL (100 MCG VIAL) ONE (08:15)
[2017-12-28] MEDS ORDERED: fentaNYL* 50 MCG/ML 2 ML VIAL (100 MCG VIAL) IV PRN (08:50)
[2017-12-28] MEDS ORDERED: Naloxone* 0.4 MG/ML 1 ML VIAL IV PRN (08:50)
[2017-12-28] MEDS ORDERED: HYDROcodone/ACETAMIN 5-325 MG* 1 TAB PO PRN (08:50)
[2017-12-28] MEDS ORDERED: Levalbuterol 0.63MG/3ML NEB* UNIT OF USE INH PRN (08:50)
[2017-12-28] MEDS ORDERED: Acetaminophen TAB* 325 MG PO PRN (08:50)
[2017-12-28] MEDS ORDERED: Ondansetron ODT TAB* 4 MG PO PRN (08:50)
[2017-12-28] MEDS ORDERED: DiMENhydriNATE IV* 50 MG/ML VIAL IV PUSH PRN (08:50)
[2017-12-28] MEDS ORDERED: PROCHLORPERAZINE INJ 5 MG/ML 2 ML VIAL IV PRN (08:50)
[2017-12-28] MEDS ORDERED: Levofloxacin 750 MG IVPREMIX(* 750 MG/150 ML BAG ONE (09:02)
[2017-12-28] MEDS ORDERED: Propofol* 10 MG/ML 20 ML BTL IV PUSH ONE (09:33)
[2017-12-28] MEDS ORDERED: Lidocaine 2% PF * 5 ML VIAL ONE (09:33)
[2017-12-28] MEDS ORDERED: Dexamethasone IV* 4 MG/ML 1 ML (4 MG) ONE (09:33)
[2017-12-28] MEDS ORDERED: Famotidine IV* 10 MG/ML 2 ML (20 mg) ONE (09:33)
[2017-12-28 11:23] VITALS: BP 123/70
--- NOTE | 2017-12-28 20:44 | OP ---
CC: Dr. Hafsa Billings * DATE OF OPERATION: 12/28/17 - [facility] DATE OF : 85 SURGEON: Jose Garcia MD PRE-OP DIAGNOSES: 1. Left ureteropelvic junction calculus (1 cm). 2. Status post placement of left ureteral stent. POST-OP DIAGNOSES: 1. Left ureteropelvic junction calculus (1 cm). 2. Status post placement of left ureteral stent. OPERATIVE PROCEDURE: Shock wave lithotripsy of left UPJ stone. INDICATIONS: Mr. Wen is a 32-year-old white male, who presented about 2 weeks ago with symptoms of left renal colic and was noted to have a 1-cm calculus at the left ureteropelvic junction. He had urgent placement of left ureteral stent. Postoperative KUB showed the stent in good position and an 8- to 10-mm radiopaque calculus at the left uretero-pelvic junction. The patient now is admitted for the above procedure. PATHOLOGY: Preoperative KUB showed the stent and the calculus still in the same position. DESCRIPTION OF PROCEDURE: After successful general anesthesia, the patient was placed in the supine position on the shock wave lithotripsy table. The left UPJ calculus was visualized in both the PA and the oblique x-ray views and the position of the stone and of the generator were adjusted to have the stone in the focus of the shock waves. A total of 1,800 shocks were then delivered at the rate of 90 shocks per minute. The proper positioning and fragmentation of the stone were monitored periodically. At the completion of the treatment, there was very good fragmentation of the stone. Because of the expected ureteral wall edema from the shock wave lithotripsy, it was decided not to remove the stent at this time. The plan is to see the patient in the office in another 7 to 10 days with a KUB and he will likely have the stent removed in the office under local anesthesia. [id number]/[facility] #: [id number] MTDD
== END 2017-12-28 11:37 | disposition home or self-care (01) ==
LOC: OR 06:54
PROVIDERS: ATTEND Urology
DX: N20.0 Calculus of kidney (principal); Z72.0 Tobacco use; K58.9 Irritable bowel syndrome, unspecified
CPT/HCPCS: 74018; J1100; J2250; J2704; J3010

== ENCOUNTER 2018-03-01 06:20 | Day surgery (SDC) | payer BC ==
[2018-03-01] MEDS ORDERED: Ondansetron INJ* 2 MG/ML VIAL IV ONE (06:45)
[2018-03-01] MEDS ORDERED: Morphine VIAL* 4 MG/ML VIAL (1 ml vial) IV ONE (06:45)
[2018-03-01] MEDS ORDERED: NS 0.9% 1000 ML* 1,000 ML IV ONE ×2 (06:45→07:40)
[2018-03-01] MEDS ORDERED: Ketorolac INJ* 30 MG/ML 1 ML VIAL IV PUSH ONE (06:45)
[2018-03-01 07:11] LABS: ABS Basophils 0.1 10^3/ul (0-0.2); ABS Eosinophils 0.1 10^3/ul (0-0.6); ABS Lymphocytes 1.7 10^3/ul (1.0-4.8); ABS Monocytes 0.8 10^3/ul (0-0.8); ABS Neutrophils 8.6 10^3/ul (1.5-7.7); ABS Nucleated RBC 0 10^3/ul; Hematocrit 45 % (42-52); Hemoglobin 15.6 g/dl (14.0-18.0); Lymphocyte % 14.9 % (25-47); Mean Corpuscular HGB Conc 35 g/dl (31-36); Mean Corpuscular Hemoglobin 32 pg (27-31); Mean Corpuscular Volume 93 fL (80-94); Mean Platelet Volume 7.8 um3 (7.4-10.4); Nucleated Red Blood Cells % 0.1; Platelet Count 244 10^3/ul (150-450); Red Blood Count 4.86 10^6/ul (4.00-5.40); Red Cell Distribution Width 14 % (10.5-15); White Blood Count 11.3 10^3/ul (3.5-10.8)
[2018-03-01 07:22] LABS: EGFR Non-African American 93.6 (>60)
[2018-03-01] MEDS ORDERED: Morphine INJ* 2 MG/ML 1 ML SYRINGE (TWO MG - NEW SYRINGE VERSION) ONE (07:25)
--- NOTE | 2018-03-01 09:00 | RAD ---
Indication: Right flank pain. CT of the abdomen and pelvis was performed without oral or IV contrast administration. Coronal and sagittal reconstructed images were obtained. Comparison is made with previous exam dated November 26, 2007. The lung bases demonstrate no pleural fluid, nodules or masses. Heart is of normal size without evidence of pericardial effusion. The liver is normal in size. No focal lesions or intrahepatic ductal dilatation is noted. Spleen is normal in size. The pancreas demonstrates no mass or pancreatic duct dilatation. The common duct is not dilated. No adrenal masses are noted. There is right hydronephrosis noted. There is a calculi in the proximal right ureter measuring approximately 9 x 5 mm. The left kidney demonstrates no hydronephrosis although renal calculi is noted. Previous identified left ureteral calculi is no longer present. No retroperitoneal adenopathy is noted. No dilated loops of bowel are noted. Appendix is normal. Small bowel demonstrates no abnormal dilatation. No abnormal masses or fluid collections are identified. IMPRESSION: 9 x 5 mm calculus in the right ureter at approximately L3 level. Moderate right hydronephrosis is noted. Left nephrolithiasis is noted without definite obstruction of the left kidney.
[2018-03-01] MEDS ORDERED: Dexamethasone TAB* 4 MG PO ONE (09:15)
[2018-03-01] MEDS ORDERED: Famotidine IV* 10 MG/ML 2 ML (20 mg) IV ONE (09:15)
[2018-03-01] MEDS ORDERED: Buffered Lidocaine 0.9% SYRIN* 5 ML/SYR SYRINGE INTRADERM ONE (09:15)
[2018-03-01] MEDS ORDERED: fentaNYL* 50 MCG/ML 2 ML VIAL (100 MCG VIAL) ONE (09:38)
[2018-03-01] MEDS ORDERED: KETAMINE HCL* 50 MG/ML 10 ML VIAL ONE (09:38)
[2018-03-01] MEDS ORDERED: Midazolam* 1 MG/ML 5 ML VIAL (5 MG) ONE (09:38)
[2018-03-01] MEDS ORDERED: Morphine INJ* 2 MG/ML 1 ML SYRINGE (TWO MG - NEW SYRINGE VERSION) IV PRN (09:50)
[2018-03-01] MEDS ORDERED: Naloxone* 0.4 MG/ML 1 ML VIAL IV PRN (09:50)
[2018-03-01] MEDS ORDERED: fentaNYL* 50 MCG/ML 2 ML VIAL (100 MCG VIAL) IV PRN (09:50)
[2018-03-01] MEDS ORDERED: PROCHLORPERAZINE INJ 5 MG/ML 2 ML VIAL IV PRN (09:50)
[2018-03-01] MEDS ORDERED: oxyCODONE/Acetamin 5/325 MG* TAB PO PRN (09:50)
[2018-03-01] MEDS ORDERED: DiMENhydriNATE IV* 50 MG/ML VIAL IV PUSH PRN (09:50)
[2018-03-01] MEDS ORDERED: Famotidine IV* 10 MG/ML 2 ML (20 mg) ONE (09:51)
[2018-03-01] MEDS ORDERED: Dexamethasone TAB* 4 MG ONE (09:51)
--- NOTE | 2018-03-01 10:00 | ED ---
Abdominal Pain/Male - HPI Summary HPI Summary: Patient is a 33-year-old male with a significant history of left and right sided renal calculi followed by Dr. Garcia presenting to the ED with acute onset this morning of right-sided flank pain radiating into the right lower quadrant pain. He has also been unable to urinate since this morning. Continues to eat and drink okay. He has denied any fevers, sweats, chills. Left stent placement was 2 months ago. He denies any nausea, vomiting, pain is currently a 10/10, constant and aching. Vital signs are stable on arrival. - History of Current Complaint Chief Complaint: EDFlankPain Stated Complaint: FLANK PAIN Time Seen by Provider: 03/01/18 06:38 Hx Obtained From: Patient Onset/Duration: Sudden Onset Timing: Constant Severity Initially: Severe Severity Currently: Severe Pain Intensity: 5 Pain Scale Used: 0-10 Numeric Location: Flank Radiates: Yes Radiates to: RLQ Character: Sharp, Cramping Aggravating Factor(s): Nothing Alleviating Factor(s): Nothing Associated Signs And Symptoms: Positive: Negative. Negative: Blood in Stool, Urinary Symptoms, Decreased Appetite, Vomiting, Diarrhea - Risk Factors Testicular Torsion: Negative Cardiac Risk Factors: Negative - Allergies/Home Medications Allergies/Adverse Reactions: Allergies Allergy/AdvReac Type Severity Reaction Status Date / Time Penicillins Allergy Intermediate Hives Verified 03/01/18 07:46 PMH/Surg Hx/FS Hx/Imm Hx Previously Healthy: Yes Endocrine/Hematology History: Denies: Hx Anticoagulant Therapy, Hx Diabetes, Hx Thyroid Disease Cardiovascular History: Denies: Hx Hypertension, Hx Pacemaker/ICD Respiratory History: Denies: Hx Asthma, Hx Chronic Obstructive Pulmonary Disease (COPD) GI History: Reports: Hx Irritable Bowel - IMMODIUM AD, Other GI Disorders - IBS Denies: Hx Ulcer History: Reports: Hx Kidney Stones - RIGHT 02/2017 AND STONE ONE WEEK AGO WITH STENT. BOTH SIDES Denies: Hx Renal Disease - kidney stones Sensory History: Denies: Hx Contacts or Glasses, Hx Hearing Aid Opthamlomology History: Denies: Hx Contacts or Glasses Neurological History: Denies: Hx Dementia, Hx Seizures, Other Neuro Impairments/Disorders - DENIES Psychiatric History: Denies: Hx Substance Abuse - Surgical History Surgery Procedure, Year, and Place: 09/10/2012 CYSTOSCOPY WITH RIGHT URETERAL STENT, [facility]. 1997 RIGHT FEMUR REPAIR, [facility] [place]. 01/2017 cystoscopy, Right retrograde pylegram, Right Ureteral calculus, Right stent insertion. ONE WEEK AGO STENT RIGHT SIDE [facility] Hx Anesthesia Reactions: No - Immunization History Hx Pertussis Vaccination: No Immunizations Up to Date: Yes Infectious Disease History: No Infectious Disease History: Denies: Hx Hepatitis, Hx Human Immunodeficiency Virus (HIV), Traveled Outside the [place] in Last 30 Days - Family History Known Family History: Positive: Other - no anestesia rnx, no malignant hyperthermia - Social History Occupation: Employed Full-time Lives: With Family Alcohol Use: None Hx Substance Use: No Substance Use Type: Reports: None Hx Tobacco Use: Yes Smoking Status (MU): Heavy Every Day Tobacco Smoker Type: eCigarettes Amount Used/How Often: smoking for 16 years Have You Smoked in the Last Year: Yes Review of Systems Constitutional: Negative Negative: Fever, Chills, Fatigue, Skin Diaphoresis Negative: Epistaxis, Dental Pain, Sore Throat Negative: Palpitations, Chest Pain Negative: Shortness Of Breath, Cough Positive: Abdominal Pain. Negative: Vomiting, Diarrhea, Nausea Genitourinary: Other - unable to urinate Positive: flank pain - right-sided Negative: Arthralgia, Myalgia Neurological: Negative All Other Systems Reviewed And Are Negative: Yes Physical Exam Triage Information Reviewed: Yes Vital Signs On Initial Exam: Initial Vitals Temp Pulse Resp BP Pulse Ox 97.8 F 70 20 130/87 97 03/01/18 06:21 03/01/18 06:21 03/01/18 06:21 03/01/18 06:21 03/01/18 06:21 Vital Signs Reviewed: Yes Appearance: Positive: Well-Appearing, Well-Nourished Skin: Positive: Warm, Skin Color Reflects Adequate Perfusion Head/Face: Positive: Normal Head/Face Inspection Eyes: Positive: EOMI, JITENDRA, Conjunctiva Clear Neck: Positive: Supple, No Lymphadenopathy Respiratory/Lung Sounds: Positive: Clear to Auscultation, Breath Sounds Present Cardiovascular: Positive: RRR, Pulses are Symmetrical in both Upper and Lower Extremities Abdomen Description: Positive: CVA Tenderness (R), Other: - Right-sided flank pain Musculoskeletal: Positive: Normal, Strength/ROM Intact Neurological: Positive: Speech Normal Psychiatric: Positive: Normal, Affect/Mood Appropriate AVPU Assessment: Alert Diagnostics - Vital Signs Vital Signs Temp Pulse Resp BP Pulse Ox 03/01/18 09:15 98.3 F 90 18 120/75 96 03/01/18 09:09 90 120/75 96 03/01/18 09:00 94 97 03/01/18 08:39 79 128/78 96 03/01/18 08:09 66 124/85 100 03/01/18 08:07 73 100 03/01/18 07:48 65 121/85 96 03/01/18 07:41 18 03/01/18 07:36 78 137/83 99 03/01/18 07:35 71 03/01/18 06:21 97.8 F 70 20 130/87 97 - Laboratory Lab Results: Lab Results 03/01/18 03/01/18 03/01/18 Range/Units 06:54 06:54 06:54 WBC 11.3 H (3.5-10.8) 10^3/ul RBC 4.86 (4.00-5.40) 10^6/ul Hgb 15.6 (14.0-18.0) g/dl Hct 45 (42-52) % MCV 93 (80-94) fL MCH 32 H (27-31) pg MCHC 35 (31-36) g/dl RDW 14 (10.5-15) % Plt Count 244 (150-450) 10^3/ul MPV 7.8 (7.4-10.4) um3 Neut % (Auto) 76.3 (38-83) % Lymph % (Auto) 14.9 L (25-47) % [place] % (Auto) 7.3 H (0-7) % Eos % (Auto) 1.0 (0-6) % Baso % (Auto) 0.5 (0-2) % Absolute Neuts (auto) 8.6 H (1.5-7.7) 10^3/ul Absolute Lymphs (auto) 1.7 (1.0-4.8) 10^3/ul Absolute Monos (auto) 0.8 (0-0.8) 10^3/ul Absolute Eos (auto) 0.1 (0-0.6) 10^3/ul Absolute Basos (auto) 0.1 (0-0.2) 10^3/ul Absolute Nucleated RBC 0 10^3/ul Nucleated RBC % 0.1 Sodium 139 (135-145) mmol/L Potassium 4.0 (3.5-5.0) mmol/L Chloride 108 (101-111) mmol/L Carbon Dioxide 21 L (22-32) mmol/L Anion Gap 10 (2-11) mmol/L BUN 11 (6-24) mg/dL Creatinine 0.93 (0.67-1.17) mg/dL Est GFR ( Amer) 113.2 (>60) Est GFR (Non-Af Amer) 93.6 (>60) BUN/Creatinine Ratio 11.8 (8-20) Glucose 137 H (70-100) mg/dL Lactic Acid 2.6 H* (0.5-2.0) mmol/L Calcium 9.5 (8.6-10.3) mg/dL Total Bilirubin 0.20 (0.2-1.0) mg/dL AST 19 (13-39) U/L ALT 20 (7-52) U/L Alkaline Phosphatase 53 (34-104) U/L C-Reactive Protein < 1.00 (<8.01) mg/L Total Protein 6.8 (6.4-8.9) g/dL Albumin 4.2 (3.2-5.2) g/dL Globulin 2.6 (2-4) g/dL Albumin/Globulin Ratio 1.6 (1-3) Result Diagrams: 03/01/18 06:54 03/01/18 06:54 Lab Statement: Any lab studies that have been ordered have been reviewed, and results considered in the medical decision making process. Abdominal Pain Fem Course/Dx - Course Course Of Treatment: During the course of treatment, the patient is evaluated for right-sided flank pain. Significant history of kidney stones.IMPRESSION: 9 x 5 mm calculus in the right ureter at approximately L3 level. Moderate right hydronephrosis is noted. Left nephrolithiasis is noted without definite obstruction of the left kidney. He is seen by Dr. Garcia. Dr. Garcia called who agrees to take him to the OR at this time. He is given 2 L fluids, morphine, Toradol and Zofran while in the ED with good relief. Continues to be unable to urinate. No urine sample was given. - Diagnoses Provider Diagnoses: Right nephrolithiasis Discharge - Sign-Out/Discharge Documenting (check all that apply): Patient Departure - Discharge Plan Condition: Stable Disposition: ADMITTED TO [facility] - Billing Disposition and Condition Condition: STABLE Disposition: Admitted to [facility]
[2018-03-01] MEDS ORDERED: Iohexol 180 (CONTRAST) 10 ML SDV IV ONE (10:16)
[2018-03-01] MEDS ORDERED: Levofloxacin 500 MG IVPREMIX(* 500 MG/100 ML BAG IVPB ONE (10:29)
[2018-03-01] MEDS ORDERED: PROCHLORPERAZINE INJ 5 MG/ML 2 ML VIAL ONE (10:54)
[2018-03-01] MEDS ORDERED: Propofol* 10 MG/ML 20 ML BTL IV PUSH ONE (10:54)
[2018-03-01 12:38] VITALS: BP 125/90
--- NOTE | 2018-03-01 13:21 | RAD ---
Indication: Right stent insertion. Single view of the abdomen demonstrates right ureteral stent in place. Bowel gas pattern is otherwise unremarkable. IMPRESSION: Right ureteral stent in place. Bowel gas pattern is otherwise unremarkable.
--- NOTE | 2018-03-01 13:31 | RAD ---
INDICATION: Right-sided nephrolithiasis COMPARISON: KUB January 04, 2018 FINDINGS: 12 seconds of fluoroscopy were provided for the urology department. Fluoroscopic spot imaging of the abdomen were obtained for operative control and show a retrograde examination followed by right ureteral stent placement . CPT II Codes: G9500 (fluoro time doc)
--- NOTE | 2018-03-01 21:26 | OP ---
CC: Hafsa Billings MD * DATE OF OPERATION: 03/01/18 - [facility] DATE OF : 85 SURGEON: Jose Garcia MD PRE-OP DIAGNOSES: 1. Right renal colic. 2. A 1 cm calculus at the right UPJ. POST-OP DIAGNOSES: 1. Right UPJ calculus. 2. 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 OPERATIVE PROCEDURE: 1. Cystoscopy. 2. Urethral dilation. 3. Right retrograde pyelography. 4. Placement of right ureteral stent (6-British). INDICATIONS FOR PROCEDURE: Mr. Wen is a 33-year-old white male who is a known stone former and who last year required treatment of a right renal and ureteral calculi. In December 2017, he required shockwave lithotripsy of a left renal calculus. He presented today to the emergency room with several hours history of right renal colic. There was no fever or chills. Noncontrast CT of the abdomen and pelvis showed a 1 cm calculus at the right ureteropelvic junction associated with mild to moderate right hydronephrosis. A 2 mm calculus was noted in the mid pole calyx of the right kidney. There was a 3 to 4 mm calculus in the lower pole calyx of the left kidney but no left hydronephrosis. Because of the above history and the size of the stone and its location at the right UPJ, the patient is taken to the operating room for stent placement in preparation for definitive treatment of the stone. PATHOLOGY: There was a stricture at the level of the fossa navicularis. The stricture had to be dilated to 22-British to introduce the cystoscope. The rest of the urethra looked normal and there were no other strictures noted. At cystoscopy, there were 2 very small crystals measuring between 1 to 2 mm floating inside the bladder. They had the gross appearance of calcium phosphate crystals. At fluoroscopy, a radiopaque calculus was noted at the level of L2-L3. Right retrograde pyelography showed only mild right hydronephrosis. DESCRIPTION OF PROCEDURE: After successful general anesthesia, the patient was placed in the lithotomy position and was prepped and draped for a cystoscopy. The fossa navicularis had to be dilated to successfully introduce the scope. The urethra was inspected and the bladder was inspected and above findings were noted. A flexible-tip hybrid wire was introduced into the right orifice and positioned without difficulty in the renal pelvis. A size 5-British open-ended catheter was fed on top of the guidewire, a retrograde pyelography was performed demonstrating the above pathology. A size 6-British stent was then placed with the proximal end coiling in the renal pelvis and the distal end coiling inside the bladder. There was good drainage of contrast from the kidney and no extravasation. The patient tolerated the procedure well and left the operating room in good condition. The plan is to obtain a KUB before the patient's discharge and will determine a definitive treatment of the stone. [id number] #: [id number] MTDD
== END 2018-03-01 09:07 | disposition home or self-care (01) ==
LOC: ED 06:20 → OR 09:07
PROVIDERS: ATTEND Urology
DX: N13.2 Hydronephrosis with renal and ureteral calculous obstruction (principal); N35.9 Urethral stricture, unspecified; R10.31 Right lower quadrant pain; Z72.0 Tobacco use; K58.9 Irritable bowel syndrome, unspecified; Z87.442 Personal history of urinary calculi
CPT/HCPCS: 36415; 74018; 74176; 74420; 80053; 83605; 85025; 86140; 99285; C1876; J0780; J1885; J1956; J2250; J2270; J2405; J2704; J3010; J8540

== ENCOUNTER → 2018-03-10 11:59 | Day surgery (SDC) | payer BC ==
[~2018-03-10 11:59] MED LIST changes: +Dexamethasone IV* 4 MG/ML 1 ML (4 MG) IV SLOW PU ONE; +Dexamethasone IV* 4 MG/ML 1 ML (4 MG) ONE; +DiMENhydriNATE IV* 50 MG/ML VIAL IV PUSH PRN; +Famotidine IV* 10 MG/ML 2 ML (20 mg) IV ONE; +Famotidine IV* 10 MG/ML 2 ML (20 mg) ONE; +Levofloxacin 500 MG IVPREMIX(* 500 MG/100 ML BAG IVPB ONE; +Midazolam* 1 MG/ML 2 ML VIAL (2 MG) ONE; +Naloxone* 0.4 MG/ML 1 ML VIAL IV PRN; +Ondansetron INJ* 2 MG/ML VIAL ONE; +fentaNYL* 50 MCG/ML 2 ML VIAL (100 MCG VIAL) IV PRN; +fentaNYL* 50 MCG/ML 2 ML VIAL (100 MCG VIAL) ONE
--- NOTE | 2018-03-10 13:30 | RAD ---
INDICATION: Lithotripsy COMPARISON: March 03, 2018 TECHNIQUE: A single view of the abdomen is submitted. FINDINGS: Bones: There are no acute bony findings. Soft tissues: The soft tissues appear normal. The psoas margins are sharp. Bowel gas pattern: Normal Calcifications: There is a 4 mm proximal right ureteral calculus. This appears essentially unchanged. There is a tiny lower pole left renal calculus measuring approximately 4 to 5 mm. Other: None IMPRESSION: BILATERAL UROLITHIASIS WITHOUT SIGNIFICANT INTERVAL CHANGE
[2018-03-10 17:19] VITALS: BP 100/73
--- NOTE | 2018-03-10 17:55 | RAD ---
INDICATION: Post lithotripsy COMPARISON: October 08, 2017 TECHNIQUE: A single view of the abdomen is submitted. FINDINGS: Bones: There are no acute bony findings. Soft tissues: The soft tissues appear normal. The psoas margins are sharp. Bowel gas pattern: Normal Calcifications: No radiopaque calculus is identified. . Other: The right ureteral stent has been removed. IMPRESSION: THE RIGHT URETERAL CALCULUS IS NO LONGER EVIDENT. THE STENT HAS BEEN REMOVED.
--- NOTE | 2018-03-11 04:59 | OP ---
OPERATIVE REPORT: DATE OF OPERATION: 03/10/18 - [facility] DATE OF : 85 SURGEON: Jeff Pulido MD ANESTHESIOLOGIST: Dr. Green. ANESTHESIA: General. PRE-OP DIAGNOSIS: Calculus, right kidney - proximal ureter. POST-OP DIAGNOSIS: Calculus, right kidney - proximal ureter. OPERATIVE PROCEDURE: 1. Shockwave lithotripsy of calculus right kidney - ureter. 2. Cystoscopy. 3. Right stent removal. INDICATIONS: Jaswinder Wen is a 33-year-old gentleman, who had undergone urgent right stent insertion because of an obstructing calculus in the right proximal ureter. COMPLICATIONS: None. POSTOPERATIVE CONDITION: Stable. DESCRIPTION OF PROCEDURE: After induction of general anesthesia, the patient was placed on the lithotripsy table in the supine position. The calculus which was at the right ureteropelvic junction adjacent to the proximal part of the stent was localized using fluoroscopy. Shockwave lithotripsy was commenced at a rate of 90 shocks per minute. A total of 2200 shocks were administered. Next, the patient was placed in dorsal lithotomy position and cystoscopy was performed. Stricture was noted at the meatus, which was carefully dilated. The bladder was examined. The stent was seen exiting from the right ureter and was removed intact without difficulty. The bladder was emptied. The patient tolerated the procedure satisfactorily and was transferred back to the recovery area in stable condition. [id number] #: [id number] MTDD
== END | disposition home or self-care (01) ==
LOC: OR 11:59
PROVIDERS: ATTEND Urology
DX: N20.0 Calculus of kidney (principal); Z72.0 Tobacco use; K58.9 Irritable bowel syndrome, unspecified
CPT/HCPCS: 74018; J1100; J1956; J2250; J2405; J3010

== ENCOUNTER 2018-12-10 19:08 | Observation (INO) | payer BC ==
[2018-12-10] MEDS ORDERED: Ketorolac INJ* 30 MG/ML 1 ML VIAL IV PUSH ONE (19:23)
[2018-12-10] MEDS ORDERED: Morphine 4 MG/ML VIAL (1 ml) 4 MG/ML VIAL IV ONE ×2 (19:23→21:52)
[2018-12-10] MEDS ORDERED: Ondansetron INJ* 2 MG/ML VIAL IV ONE (19:23)
[2018-12-10] MEDS ORDERED: NS 0.9% 1000 ML** 1,000 ML IV ONE (19:23)
[2018-12-10 20:17] LABS: ABS Eosinophils 0.2 10^3/ul (0-0.6); ABS Lymphocytes 1.6 10^3/ul (1.0-4.8); ABS Monocytes 1.1 10^3/ul (0-0.8); ABS Neutrophils 5.8 10^3/ul (1.5-7.7); Eosinophil % 2.4 %; Hematocrit 42 % (42-52); Hemoglobin 14.4 g/dL (14.0-18.0); Lymphocyte % 18.6 %; Mean Corpuscular HGB Conc 35 g/dL (31-36); Mean Corpuscular Hemoglobin 32 pg (27-31); Mean Corpuscular Volume 94 fL (80-94); Mean Platelet Volume 7.9 fL (7.4-10.4); Nucleated Red Blood Cells % 0.1; Platelet Count 245 10^3/uL (150-450); Red Blood Count 4.43 10^6 /uL (4.18-5.48); Red Cell Distribution Width 13 % (10.5-15); White Blood Count 8.8 10^3/uL (3.5-10.8)
--- NOTE | 2018-12-10 20:20 | ED ---
GI/ HPI - HPI Summary HPI Summary: 33 year old male presents with left-sided flank pain since this morning. He states he has history of kidney stones and sees dr de leon. He denies any dysuria or hematuria or urgency or frequency. He states he did urinate 20 minutes ago. He states the pain has been increasing. No nausea or vomiting. No fevers. Denies any bowel pain. Has no medical conditions beside kidney stones. - History of Current Complaint Chief Complaint: EDFlankPain Time Seen by Provider: 12/10/18 19:17 Stated Complaint: LEFT SIDED FLANK PAIN PER PT Pain Intensity: 6 - Allergy/Home Medications Allergies/Adverse Reactions: Allergies Allergy/AdvReac Type Severity Reaction Status Date / Time Penicillins Allergy Intermediate Hives Verified 12/10/18 19:11 Home Medications: Home Medications NK [No Home Medications Reported] 12/10/18 [History Confirmed 12/10/18] PMH/Surg Hx/FS Hx/Imm Hx Endocrine/Hematology History: Denies: Hx Anticoagulant Therapy, Hx Diabetes, Hx Thyroid Disease Cardiovascular History: Reports: Other Cardiovascular Problems/Disorders - 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 - corrected itself Denies: Hx Hypertension, Hx Pacemaker/ICD Respiratory History: Denies: Hx Asthma, Hx Chronic Obstructive Pulmonary Disease (COPD) GI History: Reports: Hx Irritable Bowel, Other GI Disorders - IBS Denies: Hx Ulcer History: Reports: Hx Kidney Stones, Other Problems/Disorders - current right renal calculus Denies: Hx Renal Disease - kidney stones Sensory History: Denies: Hx Contacts or Glasses, Hx Hearing Aid Opthamlomology History: Denies: Hx Contacts or Glasses Neurological History: Denies: Hx Dementia, Hx Seizures, Other Neuro Impairments/Disorders - DENIES Psychiatric History: Denies: Hx Substance Abuse - Surgical History Surgery Procedure, Year, and Place: reports multiple cystoscopies and stents - [facility] [place]. right femur fx repair 1997 - [facility] [place] Hx Anesthesia Reactions: No Infectious Disease History: No Infectious Disease History: Denies: Hx Hepatitis, Hx Human Immunodeficiency Virus (HIV), Traveled Outside the [place] in Last 30 Days - Family History Known Family History: Positive: Other - no anestesia rnx, no malignant hyperthermia - Social History Alcohol Use: Rare Hx Substance Use: No Substance Use Type: Reports: None Hx Tobacco Use: Yes Smoking Status (MU): Heavy Every Day Tobacco Smoker Type: Cigarettes Amount Used/How Often: 1 ppd for 17 yrs Have You Smoked in the Last Year: Yes Review of Systems Negative: Fever Negative: Chest Pain Negative: Shortness Of Breath Negative: Vomiting, Nausea Positive: flank pain All Other Systems Reviewed And Are Negative: Yes Physical Exam Triage Information Reviewed: Yes Vital Signs On Initial Exam: Initial Vitals Temp Pulse Resp BP Pulse Ox 99.5 F 97 16 134/80 100 12/10/18 19:10 12/10/18 19:10 12/10/18 19:10 12/10/18 19:10 12/10/18 19:10 Vital Signs Reviewed: Yes Appearance: Positive: Well-Appearing Skin: Positive: Warm, Dry Head/Face: Positive: Normal Head/Face Inspection Eyes: Positive: Normal, Conjunctiva Clear ENT: Positive: Pharynx normal Respiratory/Lung Sounds: Positive: Clear to Auscultation, Breath Sounds Present Cardiovascular: Positive: Normal, RRR Abdomen Description: Positive: Soft, Other: - tenderness left flank Bowel Sounds: Positive: Present Musculoskeletal: Positive: Normal Neurological: Positive: Normal Psychiatric: Positive: Normal Diagnostics - Vital Signs Vital Signs Temp Pulse Resp BP Pulse Ox 12/10/18 19:34 18 12/10/18 19:10 99.5 F 97 16 134/80 100 - Laboratory Lab Results: Lab Results 12/10/18 Range/Units 20:06 WBC 8.8 (3.5-10.8) 10^3/uL RBC 4.43 (4.18-5.48) 10^6 /uL Hgb 14.4 (14.0-18.0) g/dL Hct 42 (42-52) % MCV 94 (80-94) fL MCH 32 H (27-31) pg MCHC 35 (31-36) g/dL RDW 13 (10.5-15) % Plt Count 245 (150-450) 10^3/uL MPV 7.9 (7.4-10.4) fL Neut % (Auto) 65.8 % Lymph % (Auto) 18.6 % [place] % (Auto) 12.8 % Eos % (Auto) 2.4 % Baso % (Auto) 0.4 % Absolute Neuts (auto) 5.8 (1.5-7.7) 10^3/ul Absolute Lymphs (auto) 1.6 (1.0-4.8) 10^3/ul Absolute Monos (auto) 1.1 H (0-0.8) 10^3/ul Absolute Eos (auto) 0.2 (0-0.6) 10^3/ul Absolute Basos (auto) 0.0 (0-0.2) 10^3/ul Absolute Nucleated RBC 0.0 10^3/ul Nucleated RBC % 0.1 Result Diagrams: 12/10/18 20:06 12/10/18 20:06 Lab Statement: Any lab studies that have been ordered have been reviewed, and results considered in the medical decision making process. - CT abd CT Interpretation Completed By: Radiologist Summary of CT Findings: IMPRESSION: 1. Mildly obstructing 11 mm calculus left UPJ. 2. Bilateral nephrolithiasis. Re-Evaluation - Re-Evaluation First Eval Re-Evaluation Time: 21:02 Comment: pain improved GIGU Course/Dx - Course Course Of Treatment: 33 year old male presents with left-sided flank pain since this morning. He states he has history of kidney stones and sees dr de leon. He denies any dysuria or hematuria or urgency or frequency. He states he did urinate 20 minutes ago. He states the pain has been increasing. No nausea or vomiting. No fevers. Denies any bowel pain. Has no medical conditions beside kidney stones. On exam tenderness over left flank. wbc Normal. urine no infection. afebrile. ct shows 11mm stone at ubj. spoke with dr dale who requests patient be admitted to hospitalist and will take to or tomorrow. dr contreras agrees to admit. - Diagnoses Differential Diagnoses - Male: Pyelonephritis, Ureteral Calculi, Urinary Tract Infection Provider Diagnoses: Ureteral calculi Discharge - Sign-Out/Discharge Documenting (check all that apply): Patient Departure - Discharge Plan Condition: Stable Disposition: ADMITTED TO [facility] Referrals: Hafsa Billings MD [Primary Care Provider] - - Billing Disposition and Condition Condition: STABLE Disposition: Admitted to [facility]
[2018-12-10 20:34] LABS: Albumin 4.2 g/dL (3.2-5.2); Albumin/Globulin Ratio 1.7 (1-3); BUN/Creatinine Ratio 10.5 (8-20); C Reactive Protein 15.46 mg/L (<8.01); Calcium 9.2 mg/dL (8.6-10.3); EGFR African American 81.2 (>60); EGFR Non-African American 67.1 (>60); Globulin 2.5 g/dL (2-4); Potassium 3.8 mmol/L (3.5-5.0); Total Bilirubin 0.5 mg/dL (0.2-1.0); Total Protein 6.7 g/dL (6.4-8.9)
[2018-12-10 21:13] LABS: Urine Appearance Clear; Urine Bilirubin Negative (Negative); Urine Blood Negative (Negative); Urine Color Yellow; Urine Glucose Negative (Negative); Urine Ketones Negative (Negative); Urine Nitrite Negative (Negative); Urine Protein Negative (Negative); Urine Specific Gravity 1.006 (1.010-1.030); Urine Urobilinogen Negative (Negative)
[2018-12-10] MEDS ORDERED: Acetaminophen TAB* 325 MG PO PRN (22:09)
[2018-12-10] MEDS ORDERED: Morphine INJ* 2 MG/ML 1 ML SYRINGE (TWO MG - NEW SYRINGE VERSION) IV PRN (22:09)
[2018-12-10] MEDS ORDERED: Ondansetron INJ* 2 MG/ML VIAL IV PRN (22:12)
[2018-12-10] MEDS ORDERED: Ketorolac INJ* 15 MG/ML 1 ML VIAL IV PUSH PRN (22:15)
[2018-12-10] MEDS ORDERED: cefTRIAXone(*) 1 GM in NS 0.9% 50 ML* 50 ML IVPB SCH (22:30)
[2018-12-10] MEDS: NS 0.9% 1000 ML** 1,000 ML IV SCH (23:35)
--- NOTE | 2018-12-11 02:00 | HP ---
CC: Hafsa Billings MD * HISTORY AND PHYSICAL: DATE OF ADMISSION: 12/10/18 PROVIDER: Lisa Garcia NP ATTENDING PHYSICIAN WHILE IN THE HOSPITAL: Phyllis Tee MD * (dictated by Lisa Garcia NP) PRIMARY CARE PROVIDER: Hafsa Billings MD CHIEF COMPLAINT: Left flank pain. HISTORY OF PRESENT ILLNESS: The patient reports that he started to have left flank pain that started approximately at 9 a.m. this morning. He reports when he woke this morning, he had urgency and had difficulty urination. He reports that throughout the day the pain became worse and then he started vomiting because of the pain. He reports that has since subsided. He also reports that he felt hot, but he was working outside today. He is unsure if it was related to a fever due to the left flank pain and has history of kidney stones. The patient presented to the emergency room for further evaluation. The patient reports that in the past he has had stent placement for his kidney stones and he does follow with Dr. Pulido. While in the emergency room, the patient had routine lab work drawn. He had a CT of the abdomen and pelvis that showed mildly obstructing 11 mm calculus in the left UPJ, bilateral nephrolithiasis. There was mild left pelvocaliectasis with subtle perinephritic and peripelvic stranding which terminates at 1.1 cm calculus at the left UPJ. Due to the mildly obstructing renal calculi, we were asked to see and evaluate the patient for admission. PAST MEDICAL HISTORY: Kidney stones with history of ureteral stenting. PAST SURGICAL HISTORY: Lithotripsy of kidney stones and stent placement for kidney stones. MEDICATIONS: None. ALLERGIES: PENICILLIN. FAMILY HISTORY: Father is with an AR and in his 50s. Father with diabetes. No reported history of cancer. SOCIAL HISTORY: The patient smokes 1 to 2 packs of cigarettes per day. Denies any alcohol or illicit drug use. He works as a outside collector. He is single. Surrogate decision maker in the event he is unable to make his own decisions is his sister, October. He is a full code. REVIEW OF SYSTEMS: The patient reports feeling hot. Denies any unintended weight loss, chest pain, edema. He does report that he has had a cough for a couple of days with nasal and head congestion. Denies any hemoptysis or shortness of breath. He does report nausea and vomiting due to his abdominal pain. He does report left flank pain. Denies any hematuria. He does report urgency. Denies any focal weakness, sensory loss, visual complaints, dysphagia , arthralgias, myalgias, rashes, lesions, or open sores. Denies any psychosis or anxiety. PHYSICAL EXAMINATION GENERAL: Mr. Wen is a 33-year-old male. He is alert and oriented, resting on the stretcher in the emergency room. He does not appear to be in any acute distress. VITAL SIGNS: Blood pressure is 116/78, temperature is 98.0, heart rate is 88, respirations 18, O2 saturation is 99%. HEENT: Head is atraumatic, normocephalic. Eyes: EOMs are intact. Sclerae are anicteric and not pale. Oral mucosa appeared to be moist. NECK: Supple. LUNGS: Clear to auscultation bilaterally. No rales. He does have some expiratory wheezing on the left with a few scattered rhonchi. CARDIAC: S1, S2. Regular rate and rhythm. No murmurs, rubs, or gallops. ABDOMEN: Soft and nontender. Bowel sounds are present x4. He does have left CVA tenderness with palpation. No right CVA tenderness. EXTREMITIES: He is able to move all 4 extremities. There is no clubbing or cyanosis. NEUROLOGIC: He is awake, alert, and oriented x3. Speech is clear. Thought process is intact. There are no gross focal deficits. Cranial nerves II through XII are grossly intact. SKIN: Intact. DIAGNOSTIC STUDIES/LAB DATA: WBCs are 8.8, RBCs are 4.43, hemoglobin 14.4, hematocrit is 42, platelet count is 245,000. Sodium 139, potassium 3.8, chloride 108, carbon dioxide is 26, anion gap was 5, BUN was 13, creatinine 1.24 , glucose is 88, lactic acid is 1.1, calcium 9.2. ASTs were 23, ALTs were 22, alkaline phosphatase was 67. C-reactive protein is 15.46. Lipase was 14. Urine: Color was yellow and clear, pH was 7.0, specific gravity 1.006. Urine protein, ketones, blood, nitrites, bilirubin, urobilinogen, leukocyte esterase, and glucose were all negative. ASSESSMENT AND PLAN: 1. Mr. Wen is a 33-year-old male with a past medical history significant for kidney stones who presented to the emergency room with complaints of left flank pain, found to have mildly obstructing left UPJ kidney stone of 1.1 cm. He will be admitted under observation for obstructive nephrolithiasis. The ER has contacted Dr. Garcia, who will see the patient tomorrow morning and take him to the OR for stent placement. I will give him IV hydration overnight, normal saline 125 mL per hour. I will give him ceftriaxone 1 g IV. He will be n.p.o. after midnight. 2. FEN. He can have a regular diet, but be n.p.o. after midnight for stent placement in the morning. 3. DVT prophylaxis. I have encouraged for ambulation. Code status is full code. TIME SPENT: Time spent on this patient was 60 minutes, greater than half that time was spent at the bedside reviewing events leading thus far to his hospitalization, performing my physical exam, and reviewing my plan of care. I have discussed this with my attending physician, Dr. Phyllis Tee; she is in agreement with my plan. LISA GARCIA, KIEL [id number]/[facility] #: [id number] VELMA
[2018-12-11 07:01] LABS: ABS Eosinophils 0.3 10^3/ul (0-0.6); ABS Lymphocytes 1.3 10^3/ul (1.0-4.8); Eosinophil % 2.9 %; Hematocrit 42 % (42-52); Hemoglobin 14.3 g/dL (14.0-18.0); Mean Corpuscular HGB Conc 34 g/dL (31-36); Mean Corpuscular Hemoglobin 32 pg (27-31); Mean Corpuscular Volume 94 fL (80-94); Mean Platelet Volume 8.3 fL (7.4-10.4); Platelet Count 242 10^3/uL (150-450); Red Cell Distribution Width 14 % (10.5-15); White Blood Count 9.6 10^3/uL (3.5-10.8)
[2018-12-11 07:27] LABS: BUN/Creatinine Ratio 13.5 (8-20); Calcium 8.4 mg/dL (8.6-10.3); EGFR African American 92.3 (>60); EGFR Non-African American 76.3 (>60); Potassium 3.9 mmol/L (3.5-5.0)
[2018-12-11] MEDS: NS 0.9% 1000 ML** 1,000 ML IV SCH (07:46)
[2018-12-11] MEDS ORDERED: fentaNYL* 50 MCG/ML 2 ML VIAL (100 MCG VIAL) ONE ×2 (10:03→10:19)
[2018-12-11] MEDS ORDERED: Sodium Citrate/Citric Acid* 15 ML UDC ONE (10:09)
[2018-12-11] MEDS ORDERED: Ketorolac INJ* 30 MG/ML 1 ML VIAL ONE (10:19)
[2018-12-11] MEDS ORDERED: Ondansetron INJ* 2 MG/ML VIAL ONE (10:19)
[2018-12-11] MEDS ORDERED: Propofol* 10 MG/ML 20 ML BTL ONE (10:19)
[2018-12-11] MEDS ORDERED: Lidocaine 2% PF * 5 ML VIAL ONE (10:20)
[2018-12-11] MEDS ORDERED: Iohexol 180 (CONTRAST) 10 ML SDV IV ONE (10:22)
[2018-12-11] MEDS ORDERED: Levofloxacin 500 MG IVPREMIX(* 500 MG/100 ML BAG IVPB ONE (10:27)
[2018-12-11] MEDS ORDERED: Naloxone* 0.4 MG/ML 1 ML VIAL IV PRN (11:10)
[2018-12-11] MEDS ORDERED: fentaNYL* 50 MCG/ML 2 ML VIAL (100 MCG VIAL) IV PRN (11:10)
[2018-12-11] MEDS ORDERED: DiMENhydriNATE IV* 50 MG/ML VIAL IV PUSH PRN (11:10)
[2018-12-11 11:42] VITALS: BP 122/77
--- NOTE | 2018-12-11 13:39 | OP ---
CC: Dr. Hafsa Billings * DATE OF OPERATION: 12/11/18 - ROOM #414 DATE OF : 85 SURGEON: Jose Garcia MD. ANESTHESIOLOGIST: Dr. Noah Green. ANESTHESIA: General. PRE-OP DIAGNOSES: 1. Left renal colic. 2. Calculus at left ureteropelvic junction (1 cm). POST-OP DIAGNOSES: 1. Left renal colic. 2. Calculus at left ureteropelvic junction (1 cm). OPERATIVE PROCEDURE: 1. Cystoscopy. 2. Left retrograde pyelography. 3. Insertion of left ureteral stent (6-[place] Islander). INDICATION FOR PROCEDURE: Ms. Wen is a 33-year-old white male who is a known stone former and had required treatment of both left and right renal calculi. He presented last night to the emergency room with symptoms of left renal colic and was noted on CT of the abdomen and pelvis to have a 1 cm calculus at the left ureteropelvic junction associated with moderate hydronephrosis. The patient was admitted overnight, was hydrated and pain controlled. He is now taken to the operating room for placement of a left ureteral stent in preparation for definitive treatment of the stone. PATHOLOGY: At cystoscopy, there was an element of meatal stenosis that had to be dilated to introduce the 20-[place] Islander cystoscope. The rest of the urethra looked normal. The prostatic urethra was short and open. Examination of the bladder showed normal mucosa. There were no suspicious bladder lesions seen. No calculi or diverticula were noted. There was an orthotopic orifice on each side. At fluoroscopy, there was a 1 cm calcification noted at the level of the ureteropelvic junction. Upon introduction of the guidewire into the left orifice, the stones seem to be impacted and the guidewire had to be manipulated to bypass the stone. Retrograde pyelography showed moderate left hydronephrosis. Hydronephrotic drip was noted from the left kidney. DESCRIPTION OF PROCEDURE: After successful general anesthesia, the patient was placed in the lithotomy position and was prepped and draped for cystoscopy. Cystoscopy was performed. The bladder was inspected and the above findings were noted. Under fluoroscopy guidance, a flexible tip guidewire was introduced into the left orifice and passed until the level of the stone where it coiled. After several attempts, the guidewire was successfully introduced, past the stone and inside the renal pelvis. An open-ended catheter was then fed on top of the guidewire and positioned in the area of the renal pelvis. Hydronephrotic drip was noted. The urine was concentrated, but did not look cloudy. Retrograde pyelography was performed demonstrating the hydronephrosis and no extravasation. A size 6-[place]er stent was then placed with the proximal end coiling in the renal pelvis and the distal end coiling inside the bladder. There was good drainage of contrast from the kidney. The bladder was emptied and the cystoscope was removed. The patient tolerated the procedure well and the left the operating room in good condition. The plan is to obtain a KUB before discharging the patent home. He will be a candidate for shock wave lithotripsy. [id number]/[facility] #: [id number] VELMA
--- NOTE | 2018-12-11 22:20 | DS ---
CC: Dr. Hafsa Billings; Dr. Garcia.* DISCHARGE SUMMARY: DATE OF ADMISSION: 12/10/18 DATE OF DISCHARGE: 12/11/18 ATTENDING PHYSICIAN: Jose Angel Rutherford MD * (dictated by KATHERINE Rose) PRIMARY CARE PROVIDER: Dr. Hafsa Billings. CONSULTING PHYSICIAN: Dr. Garcia. PRIMARY DIAGNOSES: 1. Calculus at left ureteropelvic junction. 2. Bilateral nephrolithiasis. SECONDARY DIAGNOSIS: 1. History of nephrolithiasis. 2. History of lithotripsy and ureteral stent placement for kidney stones. PROCEDURE: On 12/11/[address] Garcia, cystoscopy with insertion of left ureteral stent. STUDIES: 1. On 12/10/18, CT abdomen and pelvis. Impression: Mildly obstructing 11 mm calculus at left UPJ. 2. Bilateral nephrolithiasis. 3. Chest x-ray on 12/10/18. Impression: No active cardiopulmonary disease. 4. On 12/11/18, abdomen x-rays confirming left ureteral stent placement. Bowel gas pattern is otherwise unremarkable. Calculi overlying the midpole to the left kidney. PERTINENT LABORATORY DATA: Creatinine 1.24 on admission and creatinine 1.11 at discharge, white blood cell count 8.8 on admission. DISCHARGE MEDICATIONS: 1. Advil 800 mg q.8 hours p.r.n. pain 2. Tylenol 650 mg q.4 hours p.r.n. pain. Continued home medications: None. The patient had no previous home medications. HISTORY OF PRESENT ILLNESS/HOSPITAL COURSE: Jaswinder Wen is a 33-year-old white male with a past medical history of nephrolithiasis who presented to emergency department on 12/10/18 complaining of left flank pain. He was found to have calculus at the left UPJ and Urology was consulted. Please history and physical from Lisa Soto NP, for further details. The patient was seen by Dr. Garcia and a ureteral stent was placed on 12/11/18. The patient tolerated the procedure well. Dr. Garcia felt that it was appropriate for the patient to be discharged home. The patient was evaluated in the PACU. The patient was feeling well though admitted to feeling "a bit oozy" due to anesthesia. The patient denies chest pain, fevers, chills, difficulty breathing, abdominal pain, nausea, vomiting. The patient did report that he was still having some left flank and report pain at the penile meatus. Overall his pain at his flank was improved. REVIEW OF SYSTEMS: The 11-point review of systems was completed and all pertinent positives and negatives are above in the HPI. All other systems are negative. PHYSICAL EXAMINATION: General: White young male lying in PACU bed, appearing in no acute distress. Vital Signs: Temperature 97.7, pulse rate 87, respiratory rate 16, O2 saturation 92% on room air, blood pressure 122/79. Head : Normocephalic, atraumatic. Eyes: PERRL. Sclerae anicteric. EOMI. ENT: Mucous membranes moist. Neck: Without JVD, neck is supple. Respiratory: Lungs are clear to auscultation. Cardio: Regular rate and rhythm without murmurs, rubs, or gallops. Abdomen: Positive CVA tenderness on the left side. Abdomen is soft, nontender, and nondistended. Extremities: No edema, clubbing or cyanosis. Neuro: The patient is alert and oriented x3. No focal deficits. DISCHARGE PLAN: The patient has returned to his normal diet. The patient may return to his normal activities as tolerated. 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 The patient was advised by Dr. Garcia to return to emergency department for fever, increased leg pain, dysuria, does not improve with pain medications, inability or increased difficult voiding and if he notes blood in his urine after [address] Garcia's office is to call the patient for followup appointment. The patient was advised to drink more than 2 of fluids every day and to avoid allowing his bladder to get too full. CONDITION ON DISCHARGE: Stable. DISPOSITION: Home. TIME SPENT: Approximately 30 minutes was spent on this discharge, approximately half of this time was spent at bedside. KATHERINE ROSE [id number]/[facility] #: [id number] VELMA
== END 2018-12-11 11:30 | disposition home or self-care (01) ==
LOC: ED 19:08 → MED 22:09
PROVIDERS: ADMIT Internal Medicine; ATTEND Internal Medicine
DX: N20.1 Calculus of ureter (principal); N20.0 Calculus of kidney; Z87.442 Personal history of urinary calculi; R10.84 Generalized abdominal pain; F17.210 Nicotine dependence, cigarettes, uncomplicated; Z88.0 Allergy status to penicillin
CPT/HCPCS: 36415; 71046; 74018; 74176; 74420; 80048; 80053; 81003; 83605; 83690; 85025; 86140; 87040; 96365; 96375; 96376; 99284; A9270-GY; G0378; J0696; J1885; J1956; J2270; J2405; J2704; J3010

== ENCOUNTER → 2018-12-22 09:21 | Day surgery (SDC) | payer BC ==
--- NOTE | 2018-12-17 19:36 | HP ---
CC: Dr. Hafsa Billings* HISTORY AND PHYSICAL: DATE OF PLANNED ADMISSION AND SURGERY: 12/22/18 HISTORY OF PRESENT ILLNESS: Please refer to the detailed history and physical at his admission dated 12/10/18. This is an interval urological history. Mr. Wen is a 33-year-old white male who is admitted with a left renal calculus, status post placement of left ureteral stent for shockwave lithotripsy of a left renal calculus and possible cystoscopy and removal of left ureteral stent. Mr. Wen is a known stone former. He presented on 12/10/18 with symptoms of left renal colic. Noncontrast CT of the abdomen and pelvis showed a 1 cm calculus at the left ureteropelvic junction associated with moderate left hydronephrosis. He also had another 8 mm calculus in the left kidney. On 12/11/18 he underwent a cystoscopy and placement of a left ureteral stent. Postoperative KUB showed the stent in good position and the left ureteral calculus has migrated into the collecting system. The patient has done very well since this procedure. He is now admitted for shockwave lithotripsy of the left renal calculus and if there is good fragmentation of the stone for cystoscopy and stent removal. There has not been any changes in his medical condition or in his history since his recent admission and discharge. He is on no chronic medications and he reports being ALLERGIC TO PENICILLIN. I discussed the procedure in detail with the patient. Some of the potential complications including gross hematuria, postop renal colic as the stone fragments are passing and possible need for more procedures to clear up all his calculi were discussed. [id number]/[facility] #: [id number] VELMA
[~2018-12-22 09:21] MED LIST changes: -Buffered Lidocaine 0.9% SYRIN* 5 ML/SYR SYRINGE INTRADERM ONE; +Buffered Lidocaine 1% SYRIN* 1 ML/SYRINGE INTRADERM ONE; -Dexamethasone IV* 4 MG/ML 1 ML (4 MG) IV SLOW PU ONE; -Famotidine IV* 10 MG/ML 2 ML (20 mg) IV ONE; -Famotidine IV* 10 MG/ML 2 ML (20 mg) ONE; +HYDROmorphone INJ1* 1 MG/ML SYRINGE IV PRN; +Lactated Ringers 1000 ML Bag* 1,000 ML IV SCH; -Levofloxacin 500 MG IVPREMIX(* 500 MG/100 ML BAG IVPB ONE; +Levofloxacin 750 MG IVPREMIX(* 750 MG/150 ML BAG ONE; -Midazolam* 1 MG/ML 2 ML VIAL (2 MG) ONE; +Midazolam* 1 MG/ML 5 ML VIAL (5 MG) ONE; +Ondansetron INJ* 2 MG/ML VIAL IV PRN; +Propofol* 10 MG/ML 20 ML BTL ONE; +oxyCODONE/Acetamin 5/325 MG* TAB PO PRN
[2018-12-22 14:33] VITALS: BP 121/74
--- NOTE | 2018-12-22 17:13 | OP ---
CC: Dr. Hafsa Billings* OPERATIVE REPORT: DATE OF OPERATION: 12/22/18 - SDS DATE OF : 85 SURGEON: Jose Garcia MD ANESTHESIOLOGIST: Dr. Francis Newman. ANESTHESIA: General. PRE-OP DIAGNOSES: 1. Left renal calculi. 2. Status post placement of left ureteral stent. POST-OP DIAGNOSES: 1. Left renal calculi. 2. Status post placement of left ureteral stent. OPERATIVE PROCEDURE: Shockwave lithotripsy of 3 left renal calculi. INDICATION FOR PROCEDURE: Mr. Wen is a 33-year-old, who is a known stone former and who presented about 2 weeks ago with symptoms of left renal colic. He was noted to have a 1 cm calculus at the left ureteropelvic junction and there were 2 other calculi measuring 6 mm each located in the left collecting system. The patient had urgent placement of left ureteral stent. He is now admitted for shockwave lithotripsy. PATHOLOGY: Preoperative KUB showed a 1 cm calculus at the left ureteropelvic junction adjacent to the stent. There was a 6 mm calculus in the mid pole calyx and a 6 to 7 mm calculus in the lower pole calyx. The left ureteral stent was in good position. DESCRIPTION OF PROCEDURE: After successful general anesthesia, the patient was placed in the supine position on the shockwave lithotripsy table. The calculus at the left ureteropelvic junction was visualized with the fluoroscopy and the positions of the patient and of the generator were adjusted to have that stone in the focus of the shock waves. A total of 1400 shocks was then delivered at a rate of 60 shocks per minute. The proper positioning and fragmentation of the calculus was monitored periodically. At 1400 shocks, there was very good fragmentation of the stone. Attention was then directed to the residual left renal calculi and both of them treated successfully with good fragmentation delivering a total of 2400 shocks. Because of the proximity of the ureter to the shockwave lithotripsy and the expected associated postoperative edema, it was decided not to remove the stent. The patient tolerated the procedure well and left the operating room in good condition. The plan is to obtain a KUB postoperatively. Decision will then be made on the stent removal. [id number]/[facility] #: [id number] [facility]
== END | disposition home or self-care (01) ==
LOC: OR 09:21
PROVIDERS: ATTEND Urology
DX: N20.0 Calculus of kidney (principal); Z87.442 Personal history of urinary calculi; Z88.0 Allergy status to penicillin; F17.210 Nicotine dependence, cigarettes, uncomplicated
CPT/HCPCS: 74018; J1100; J2250; J2405; J2704; J3010

== ENCOUNTER 2019-05-01 17:29 | Emergency (ER) | payer BC ==
[2019-05-01] MEDS ORDERED: Morphine 4 MG/ML VIAL (1 ml) 4 MG/ML VIAL IV ONE (18:19)
[2019-05-01] MEDS ORDERED: Ondansetron INJ* 2 MG/ML VIAL IV ONE (18:19)
[2019-05-01] MEDS ORDERED: NS 0.9% 1000 ML** 1,000 ML IV ONE (18:19)
--- NOTE | 2019-05-01 18:20 | ED ---
GI/ HPI - HPI Summary HPI Summary: Patient complains of right-sided flank pain radiating to groin 2 hours, also complains of decreased urine flow 2 hours. History of kidney stones once or twice a year since she was a teenager. Admits to associated nausea or vomiting , chills and sweats. Pain described as constant. Denies fever, cough, sore throat, CP, SOB, change in BM, penile or testicular symptoms. Medical history is none. Abdominal surgical history is none. Patient urologist Dr. Garcia. Prior history of surgery for kidney stones. - History of Current Complaint Chief Complaint: EDFlankPain Time Seen by Provider: 05/01/19 18:10 Stated Complaint: POSS KIDNEY STONE PER PT Hx Obtained From: Patient Onset/Duration: Started Hours Ago Timing: Constant Severity: Severe Current Severity: Severe Pain Intensity: 10 Location of Pain: Groin, Flank Pain Characteristics: Sharp Associated Signs and Symptoms: Positive: Nausea, Vomiting, Dysuria Aggravating Factor(s): Nothing Alleviating Factor(s): Nothing - Additional Pertinent History Primary Care Physician: RAJ - Allergy/Home Medications Allergies/Adverse Reactions: Allergies Allergy/AdvReac Type Severity Reaction Status Date / Time Penicillins Allergy Intermediate Hives Verified 05/01/19 18:12 PMH/Surg Hx/FS Hx/Imm Hx Endocrine/Hematology History: Denies: Hx Anticoagulant Therapy, Hx Bone Marrow Disease, Hx Diabetes, Hx Sickle Cell Disease, Hx Thyroid Disease, Hx Anemia Cardiovascular History: Reports: Other Cardiovascular Problems/Disorders - 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 - corrected itself Denies: Hx Hypertension, Hx Pacemaker/ICD Respiratory History: Denies: Hx Asthma, Hx Chronic Obstructive Pulmonary Disease (COPD), Other Respiratory Problems/Disorders GI History: Reports: Hx Irritable Bowel, Other GI Disorders - IBS Denies: Hx Ulcer History: Reports: Hx Kidney Stones - currently, Other Problems/Disorders - current right renal calculus Denies: Hx Renal Disease - kidney stones Musculoskeletal History: Denies: Other Musculoskeletal History Sensory History: Denies: Hx Contacts or Glasses, Hx Hearing Aid Opthamlomology History: Denies: Hx Contacts or Glasses Neurological History: Denies: Hx Dementia, Hx Seizures, Other Neuro Impairments/Disorders - DENIES Psychiatric History: Denies: Hx Substance Abuse - Surgical History Surgery Procedure, Year, and Place: reports multiple cystoscopies and stents - [facility] [place]. right femur fx repair 1997 - [facility] [place]. ureteral stent placement-[facility] [place] Hx Anesthesia Reactions: No Infectious Disease History: No Infectious Disease History: Denies: Hx Hepatitis, Hx Human Immunodeficiency Virus (HIV), Traveled Outside the [place] in Last 30 Days - Family History Known Family History: Positive: Other - no anestesia rnx, no malignant hyperthermia - Social History Alcohol Use: Rare Hx Substance Use: No Substance Use Type: Reports: None Hx Tobacco Use: Yes Smoking Status (MU): Heavy Every Day Tobacco Smoker Type: Cigarettes Amount Used/How Often: 1 ppd for 17 yrs Have You Smoked in the Last Year: Yes Review of Systems Constitutional: Negative Eyes: Negative ENT: Negative Cardiovascular: Negative Respiratory: Negative Positive: Abdominal Pain Positive: dysuria Musculoskeletal: Negative Skin: Negative Neurological: Negative Psychological: Normal All Other Systems Reviewed And Are Negative: Yes Physical Exam Triage Information Reviewed: Yes Vital Signs On Initial Exam: Initial Vitals Temp Pulse Resp BP Pulse Ox 98.3 F 66 18 151/80 100 05/01/19 17:31 05/01/19 17:31 05/01/19 17:31 05/01/19 17:31 05/01/19 17:31 Vital Signs Reviewed: Yes Appearance: Positive: Well-Appearing Skin: Positive: Warm Head/Face: Positive: Normal Head/Face Inspection Eyes: Positive: Normal Neck: Positive: Supple Respiratory/Lung Sounds: Positive: Clear to Auscultation Cardiovascular: Positive: Normal, RRR Abdomen Description: Positive: Nontender Musculoskeletal: Positive: Normal Neurological: Positive: Normal Psychiatric: Positive: Normal AVPU Assessment: Alert - Jody Coma Scale Best Eye Response: 4 - Spontaneous Best Motor Response: 6 - Obeys Commands Best Verbal Response: 5 - Oriented Coma Scale Total: 15 Procedures - Sedation Patient Received Moderate/Deep Sedation with Procedure: No Diagnostics - Vital Signs Vital Signs Temp Pulse Resp BP Pulse Ox 05/01/19 17:31 98.3 F 66 18 151/80 100 - Laboratory Result Diagrams: 05/01/19 18:24 05/01/19 18:24 Lab Statement: Any lab studies that have been ordered have been reviewed, and results considered in the medical decision making process. GIGU Course/Dx - Course Course Of Treatment: Patient complains of right-sided flank pain radiating to groin 2 hours, also complains of decreased urine flow 2 hours. History of kidney stones once or twice a year since she was a teenager. Admits to associated nausea or vomiting, chills and sweats. Pain described as constant. Denies fever, cough, sore throat, CP, SOB, change in BM, penile or testicular symptoms. Medical history is none. Abdominal surgical history is none. Patient urologist Dr. Garcia. Prior history of surgery for kidney stones. Vital signs within normal limits. Labs unremarkable. Renal ultrasound positive for right renal calculus and mild to moderate hydronephrosis. Patient was able to produce urine here in the ED for urine sample. Pain controlled with morphine 4 mg IV. Patient discharged home with pain control, and advised to follow-up with Dr. Garcia. Patient understands and approves of plan. - Diagnoses Provider Diagnoses: Kidney stone on right side Discharge ED - Sign-Out/Discharge Documenting (check all that apply): Patient Departure - Discharge Plan Condition: Stable Disposition: HOME Prescriptions: Oxycodone HCl 5 mg PO Q6H 2 Days #8 tablet MDD 4 tabs Patient Education Materials: Kidney Stones (ED), How to Strain Your Urine (ED) Referrals: Hafsa Billings MD [Primary Care Provider] - Jose Garcia MD [Medical Doctor] - Additional Instructions: Take pain medication as directed if needed for pain. Drink plenty of fluids to help flush tone. Follow-up with urologist Dr. Garcia for further evaluation. Return to the ED for any new or worsening symptoms. - Billing Disposition and Condition Condition: STABLE Disposition: Home - Attestation Statements Provider Attestation: I was available for consult. This patient was seen by the JOCELIN. The patient was not presented to, seen by, or examined by me. Tulio Samuels MD
[2019-05-01 18:37] LABS: ABS Eosinophils 0.3 10^3/ul (0-0.6); ABS Lymphocytes 1.6 10^3/ul (1.0-4.8); ABS Monocytes 0.7 10^3/ul (0-0.8); ABS Neutrophils 7.4 10^3/ul (1.5-7.7); Eosinophil % 2.7 %; Hematocrit 48 % (42-52); Hemoglobin 16.2 g/dL (14.0-18.0); Lymphocyte % 16.1 %; Mean Corpuscular HGB Conc 34 g/dL (31-36); Mean Corpuscular Hemoglobin 32 pg (27-31); Mean Corpuscular Volume 94 fL (80-94); Mean Platelet Volume 7.6 fL (7.4-10.4); Platelet Count 265 10^3/uL (150-450); Red Blood Count 5.08 10^6 /uL (4.18-5.48); Red Cell Distribution Width 13 % (10-15); White Blood Count 10.1 10^3/uL (3.5-10.8)
[2019-05-01 18:47] LABS: ALT 25 U/L (7-52); Albumin 4.3 g/dL (3.2-5.2); Albumin/Globulin Ratio 1.8 (1-3); Alkaline Phosphatase 58 U/L (34-104); BUN/Creatinine Ratio 15.9 (8-20); Blood Urea Nitrogen 14 mg/dL (6-24); C Reactive Protein < 1.00 mg/L (<8.01); CO2 Carbon Dioxide 25 mmol/L (22-32); Calcium 9.7 mg/dL (8.6-10.3); Chloride 106 mmol/L (101-111); EGFR Non-African American 99.1 (>60); Globulin 2.4 g/dL (2-4); Glucose 137 mg/dL (70-100); Sodium 138 mmol/L (135-145); Total Protein 6.7 g/dL (6.4-8.9)
[2019-05-01 19:06] LABS: Anion Gap 7 mmol/L (2-11); Potassium 4.3 mmol/L (3.5-5.0)
[2019-05-01 19:08] LABS: AST 19 U/L (13-39)
[2019-05-01 20:25] LABS: Urine Appearance Cloudy; Urine Bacteria Absent (Absent); Urine Bilirubin Negative (Negative); Urine Blood 3+ (Negative); Urine Color Yellow; Urine Glucose Negative (Negative); Urine Ketones Negative (Negative); Urine Nitrite Negative (Negative); Urine Protein Negative (Negative); Urine Red Blood Cell 3+(>10/hpf) (Absent); Urine Specific Gravity 1.006 (1.010-1.030); Urine Urobilinogen Negative (Negative); Urine White Blood Cell Trace(0-5/hpf) (Absent)
[2019-05-01 21:41] VITALS: BP 116/68
== END 2019-05-01 21:39 | disposition home or self-care (01) ==
LOC: ED 17:29
DX: N13.2 Hydronephrosis with renal and ureteral calculous obstruction (principal); R11.2 Nausea with vomiting, unspecified; Z88.0 Allergy status to penicillin; F17.210 Nicotine dependence, cigarettes, uncomplicated
CPT/HCPCS: 36415; 74018; 76775; 80053; 81003; 81015; 83690; 85025; 86140; 87086; 96361; 96374; 96375; 99283; J2270; J2405

== ENCOUNTER 2019-09-14 01:37 | Day surgery (SDC) | payer BC ==
[2019-09-14] MEDS ORDERED: Ondansetron INJ* 2 MG/ML VIAL IV ONE (01:58)
[2019-09-14] MEDS ORDERED: Ketorolac INJ* 15 MG/ML 1 ML VIAL IV ONE (01:58)
[2019-09-14] MEDS ORDERED: NS 0.9% 1000 ML** 1,000 ML IV ONE ×2 (01:58→02:53)
[2019-09-14 02:23] LABS: ABS Eosinophils 0.5 10^3/ul (0-0.6); ABS Monocytes 0.9 10^3/ul (0-0.8); ABS Neutrophils 6.1 10^3/ul (1.5-7.7); Eosinophil % 5.2 %; Hematocrit 46 % (42-52); Hemoglobin 15.9 g/dL (14.0-18.0); Lymphocyte % 20.7 %; Mean Corpuscular HGB Conc 35 g/dL (31-36); Mean Corpuscular Hemoglobin 33 pg (27-31); Mean Corpuscular Volume 95 fL (80-94); Mean Platelet Volume 7.6 fL (7.4-10.4); Nucleated Red Blood Cells % 0.1; Platelet Count 261 10^3/uL (150-450); Red Blood Count 4.81 10^6 /uL (4.18-5.48); Red Cell Distribution Width 13 % (10-15); White Blood Count 9.5 10^3/uL (3.5-10.8)
[2019-09-14 02:30] LABS: INR 0.97 (0.82-1.09)
[2019-09-14 02:40] LABS: ALT 21 U/L (7-52); AST 17 U/L (13-39); Albumin 4.2 g/dL (3.2-5.2); Albumin/Globulin Ratio 1.8 (1-3); Alkaline Phosphatase 66 U/L (34-104); Anion Gap 9 mmol/L (2-11); BUN/Creatinine Ratio 13.1 (8-20); Blood Urea Nitrogen 11 mg/dL (6-24); C Reactive Protein < 1.00 mg/L (<8.01); CO2 Carbon Dioxide 23 mmol/L (22-32); Calcium 9.1 mg/dL (8.6-10.3); Chloride 105 mmol/L (101-111); EGFR African American 126.6 (>60); EGFR Non-African American 104.6 (>60); Globulin 2.4 g/dL (2-4); Glucose 146 mg/dL (70-100); Potassium 3.7 mmol/L (3.5-5.0); Sodium 137 mmol/L (135-145); Total Protein 6.6 g/dL (6.4-8.9)
--- NOTE | 2019-09-14 02:57 | ED ---
Abdominal Pain/Male - HPI Summary HPI Summary: The patient is a 34-year-old male presenting to [facility] with a chief complaint of right low back, right flank, and RLQ pain onset yesterday around 1530. He reports a history of kidney stones with ureteral stent placement, last diagnosed in April 2019 on the right. He states that his current experience is similar to past episodes, so he is concerned for new calculus. He endorses nausea, vomiting, and urinary retention since 0030 this morning. Symptoms currently rated 10/10 in severity. 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 No alleviating or aggravating factors. He denies any fevers. Past medical history significant for IBS. Family history includes cardiac disease. Current smoker, no EtOH, no substance use. Medications reviewed. Allergies noted. - History of Current Complaint Chief Complaint: EDFlankPain Stated Complaint: KIDNEY STONE PER PT Time Seen by Provider: 09/14/19 01:58 Hx Obtained From: Patient Onset/Duration: Sudden Onset, Lasting Days, Still Present Timing: Constant Severity Initially: Mild Severity Currently: Severe Pain Intensity: 10 Pain Scale Used: 0-10 Numeric Location: Flank - right Radiates: Yes Radiates to: Back - right lower, RLQ Character: Sharp Aggravating Factor(s): Nothing Alleviating Factor(s): Nothing Associated Signs And Symptoms: Positive: Urinary Symptoms - decreased frequency , Nausea, Vomiting. 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 - corrected itself Denies: Hx Hypertension, Hx Pacemaker/ICD Respiratory History: Denies: Hx Asthma, Hx Chronic Obstructive Pulmonary Disease (COPD), Other Respiratory Problems/Disorders GI History: Reports: Hx Irritable Bowel, Other GI Disorders - IBS Denies: Hx Ulcer History: Reports: Hx Kidney Stones - currently, Other Problems/Disorders - current right renal calculus Denies: Hx Renal Disease - kidney stones Musculoskeletal History: Denies: Other Musculoskeletal History Sensory History: Denies: Hx Contacts or Glasses, Hx Hearing Aid Opthamlomology History: Denies: Hx Contacts or Glasses Neurological History: Denies: Hx Dementia, Hx Seizures, Other Neuro Impairments/Disorders - DENIES Psychiatric History: Denies: Hx Substance Abuse - Surgical History Surgical History: Yes Surgery Procedure, Year, and Place: reports multiple cystoscopies and stents - [facility] [place]. right femur fx repair 1997 - [facility] [place]. ureteral stent placement[facility] [place] Hx Anesthesia Reactions: No Infectious Disease History: No Infectious Disease History: Denies: Hx Hepatitis, Hx Human Immunodeficiency Virus (HIV), Traveled Outside the [place] in Last 30 Days - Family History Known Family History: Positive: Cardiac Disease, Other - no anestesia rnx, no malignant hyperthermia - Social History Alcohol Use: Rare Hx Substance Use: No Substance Use Type: Reports: None Hx Tobacco Use: Yes Smoking Status (MU): Heavy Every Day Tobacco Smoker Type: Cigarettes Amount Used/How Often: 1 ppd for 17 yrs Have You Smoked in the Last Year: Yes - Additional Comments History Additional Comments: kidney stones with ureteral stents, IBS Review of Systems - ROS Summary Review of Systems Summary: Home Medications Medication Instructions Recorded Confirmed Type NK [No Home Medications Reported] 09/14/19 09/14/19 History Negative: Fever Positive: Abdominal Pain - RLQ Positive: frequency - decreased, flank pain - right All Other Systems Reviewed And Are Negative: Yes Physical Exam - Summary Physical Exam Summary: General: Well-developed, Well-nourished male. Appears to be in mild discomfort. HEENT: Normocephalic, Atraumatic. Eyes: Conjuctiva normal, PERRL. Oropharynx: Clear, mucous membranes moist, (-) exudates. Neck: Soft, FROM, (-) lymphadenopathy, (-) thyromegaly, (-) JVD. Cardiovascular: Normal sinus rhythm, (-) murmur. Lungs: Clear to auscultation bilaterally (-) wheezes, (-) rales, (-) rhonchi. Abdomen: Soft, mild RLQ tenderness to palpation, non-distended, (-) organomegaly , normal bowel sounds. Back: Mild right low back tenderness to palpation, (-) CVA tenderness Extremities: No edema. Skin: Warm, dry, (-) rash. Neuro: Alert and oriented x3, moves all extremities equally. No ataxia. No gait disturbance. No sensory deficit. Normal strength, normal sensation. Psychiatric: Mood normal, affect normal. Triage Information Reviewed: Yes Vital Signs On Initial Exam: Initial Vitals Temp Pulse Resp BP Pulse Ox 98.2 F 83 20 142/82 100 09/14/19 01:39 09/14/19 01:39 09/14/19 01:39 09/14/19 01:39 09/14/19 01:39 Vital Signs Reviewed: Yes Procedures - Sedation Patient Received Moderate/Deep Sedation with Procedure: No Diagnostics - Vital Signs Vital Signs Temp Pulse Resp BP Pulse Ox 09/14/19 01:39 98.2 F 83 20 142/82 100 - Laboratory Lab Results: Lab Results 09/14/19 09/14/19 09/14/19 Range/Units 02:14 02:14 02:14 WBC 9.5 (3.5-10.8) 10^3/uL RBC 4.81 (4.18-5.48) 10^6 /uL Hgb 15.9 (14.0-18.0) g/dL Hct 46 (42-52) % MCV 95 H (80-94) fL MCH 33 H (27-31) pg MCHC 35 (31-36) g/dL RDW 13 (10-15) % Plt Count 261 (150-450) 10^3/uL MPV 7.6 (7.4-10.4) fL Neut % (Auto) 64.6 % Lymph % (Auto) 20.7 % Storey % (Auto) 9.1 % Eos % (Auto) 5.2 % Baso % (Auto) 0.4 % Absolute Neuts (auto) 6.1 (1.5-7.7) 10^3/ul Absolute Lymphs (auto) 2.0 (1.0-4.8) 10^3/ul Absolute Monos (auto) 0.9 H (0-0.8) 10^3/ul Absolute Eos (auto) 0.5 (0-0.6) 10^3/ul Absolute Basos (auto) 0.0 (0-0.2) 10^3/ul Absolute Nucleated RBC 0.0 10^3/ul Nucleated RBC % 0.1 INR (Anticoag Therapy) (0.82-1.09) Sodium 137 (135-145) mmol/L Potassium 3.7 (3.5-5.0) mmol/L Chloride 105 (101-111) mmol/L Carbon Dioxide 23 (22-32) mmol/L Anion Gap 9 (2-11) mmol/L BUN 11 (6-24) mg/dL Creatinine 0.84 (0.67-1.17) mg/dL Est GFR ( Amer) 126.6 (>60) Est GFR (Non-Af Amer) 104.6 (>60) BUN/Creatinine Ratio 13.1 (8-20) Glucose 146 H (70-100) mg/dL Lactic Acid 2.0 (0.5-2.0) mmol/L Calcium 9.1 (8.6-10.3) mg/dL Total Bilirubin 0.50 (0.2-1.0) mg/dL AST 17 (13-39) U/L ALT 21 (7-52) U/L Alkaline Phosphatase 66 (34-104) U/L C-Reactive Protein < 1.00 (<8.01) mg/L Total Protein 6.6 (6.4-8.9) g/dL Albumin 4.2 (3.2-5.2) g/dL Globulin 2.4 (2-4) g/dL Albumin/Globulin Ratio 1.8 (1-3) Lipase < 10 L (11.0-82.0) U/L / Range/Units 02:14 WBC (3.5-10.8) 10^3/uL RBC (4.18-5.48) 10^6 /uL Hgb (14.0-18.0) g/dL Hct (42-52) % MCV (80-94) fL MCH (27-31) pg MCHC (31-36) g/dL RDW (10-15) % Plt Count (150-450) 10^3/uL MPV (7.4-10.4) fL Neut % (Auto) % Lymph % (Auto) % Storey % (Auto) % Eos % (Auto) % Baso % (Auto) % Absolute Neuts (auto) (1.5-7.7) 10^3/ul Absolute Lymphs (auto) (1.0-4.8) 10^3/ul Absolute Monos (auto) (0-0.8) 10^3/ul Absolute Eos (auto) (0-0.6) 10^3/ul Absolute Basos (auto) (0-0.2) 10^3/ul Absolute Nucleated RBC 10^3/ul Nucleated RBC % INR (Anticoag Therapy) 0.97 (0.82-1.09) Sodium (135-145) mmol/L Potassium (3.5-5.0) mmol/L Chloride (101-111) mmol/L Carbon Dioxide (22-32) mmol/L Anion Gap (2-11) mmol/L BUN (6-24) mg/dL Creatinine (0.67-1.17) mg/dL Est GFR ( Amer) (>60) Est GFR (Non-Af Amer) (>60) BUN/Creatinine Ratio (8-20) Glucose (70-100) mg/dL Lactic Acid (0.5-2.0) mmol/L Calcium (8.6-10.3) mg/dL Total Bilirubin (0.2-1.0) mg/dL AST (13-39) U/L ALT (7-52) U/L Alkaline Phosphatase (34-104) U/L C-Reactive Protein (<8.01) mg/L Total Protein (6.4-8.9) g/dL Albumin (3.2-5.2) g/dL Globulin (2-4) g/dL Albumin/Globulin Ratio (1-3) Lipase (11.0-82.0) U/L Result Diagrams: 09/14/19 02:14 09/14/19 02:14 Lab Statement: Any lab studies that have been ordered have been reviewed, and results considered in the medical decision making process. - Radiology Abd XR Radiology Interpretation Completed By: ED Physician Summary of Radiographic Findings: Large calcified stone in the right upper abdomen. This imaging study was reviewed and interpreted by Dr. Angel. Pending official read. - CT Abd/Pel CT CT Interpretation Completed By: Radiologist Summary of CT Findings: Impression: There is a 9 mm calculus noted in the proximal right ureter with associated moderate severe right-sided hydronephrosis. This report was reviewed by Dr. Angel. Re-Evaluation - Re-Evaluation First Eval Re-Evaluation Time: 17:50 Change: Improved Comment: Pain has improved with Morphine. I have discussed the results with the patient. Plan for Abd XR and urology consult. Second Eval Re-Evaluation Time: 06:55 Comment: Discussed plan for admission. Patient agreeable with plan. Abdominal Pain Male Course/Dx - Course Course Of Treatment: 34 year old male with r flank pain. h/o kidney stones. vomiting. Patient administered fluids 2L, Zofran, Morphine, and Toradol. having a difficult time urinating. labs essentially unremarkable. ct scan demonstrates a 9 mm stone proximal right ureter, discussed with Dr Alcaraz. he advised KUB and urine sample. he will be in to see patient. - Diagnoses Provider Diagnoses: Tobacco use, Nephrolithiasis, Hydronephrosis - Provider Notifications Discussed Care Of Patient With: Jeff Pulido - urology Time Discussed With Above Provider: 06:53 Instructed by Provider To: Other - I discussed the patient's case with Dr. Pulido , and he recommends NPO, KUB, and UA, and then he will come see the patient in the ED. He will admit the patient for stent placement. Discharge ED - Sign-Out/Discharge Documenting (check all that apply): Patient Departure - Patient accepted for admission by Dr. Pulido. - Discharge Plan Condition: Stable Disposition: ADMITTED TO [facility] - Billing Disposition and Condition Condition: STABLE Disposition: Admitted to [facility] - Attestation Statements Document Initiated by Jeannie: Yes Documenting Scribe: Jeane Yang Provider For Whom Jeannie is Documenting (Include Credential): Dr. Mariaa Angel MD Scribe Attestation: Jeane Zambrano scribed for Dr. Mariaa Angel MD on 09/15/19 at 0040. Scribe Documentation Reviewed: Yes Provider Attestation: The documentation as recorded by the Jeane monreal accurately reflects the service I personally performed and the decisions made by me, Dr. Mariaa Angel MD Status of Scribjaylon Document: Viewed
[2019-09-14] MEDS ORDERED: Morphine 4 MG/ML VIAL (1 ml) 4 MG/ML VIAL IV ONE (04:38)
[2019-09-14] MEDS ORDERED: Levofloxacin 500 MG IVPREMIX(* 500 MG/100 ML BAG IVPB ONE (10:10)
[2019-09-14] MEDS ORDERED: Iohexol 180 (CONTRAST) 10 ML SDV IV ONE (10:42)
[2019-09-14] MEDS ORDERED: fentaNYL* 50 MCG/ML 2 ML VIAL (100 MCG VIAL) ONE (10:45)
[2019-09-14] MEDS ORDERED: Metoclopramide IV* 5 MG/ML 2 ML VIAL ONE (10:45)
[2019-09-14] MEDS ORDERED: Ondansetron INJ* 2 MG/ML VIAL ONE (10:45)
[2019-09-14] MEDS ORDERED: Lidocaine 2% PF * 5 ML VIAL ONE (10:45)
[2019-09-14] MEDS ORDERED: Propofol* 10 MG/ML 20 ML BTL ONE (10:45)
[2019-09-14] MEDS ORDERED: Sodium Citrate/Citric Acid* 15 ML UDC ONE (10:51)
[2019-09-14] MEDS ORDERED: Sodium Citrate/Citric Acid* 15 ML UDC PO ONE (10:51)
[2019-09-14] MEDS ORDERED: DiMENhydriNATE IV* 50 MG/ML VIAL IV PUSH PRN (10:52)
[2019-09-14] MEDS ORDERED: Naloxone* 0.4 MG/ML 1 ML VIAL IV PRN (10:52)
[2019-09-14] MEDS ORDERED: fentaNYL* 50 MCG/ML 2 ML VIAL (100 MCG VIAL) IV PRN (10:52)
[2019-09-14] MEDS ORDERED: Dexamethasone IV* 4 MG/ML 1 ML (4 MG) ONE (11:16)
[2019-09-14 12:26] VITALS: BP 128/56
--- NOTE | 2019-09-14 14:52 | OP ---
DATE OF OPERATION: 09/14/19 - EMERGENCY DEPT DATE OF : 85 SURGEON: Jeff Pulido MD ANESTHESIOLOGIST: Dr. Green. ANESTHESIA: General. PRE-OP DIAGNOSES: 1. Right hydronephrosis. 2. Obstructing calculus, right ureteropelvic junction. POST-OP DIAGNOSES: 1. Right hydronephrosis. 2. Obstructing calculus, right ureteropelvic junction. 3. Urethral stricture (meatal). OPERATIVE PROCEDURE: Urethral dilatation, cystoscopy, right retrograde pyelogram, right ureteral calculus manipulation, and right stent insertion. COMPLICATIONS: None. POSTOPERATIVE CONDITION: Stable. STENT: 7-Sammarinese stent, right ureter. OPERATIVE FINDINGS: 1. Meatal stricture. 2. Right hydronephrosis secondary to fairly large 9 to 10 mm calculus, right ureteropelvic junction. INDICATIONS: Jaswinder Wen is a 34-year-old gentleman with a history of recurrent renal and ureteral calculi, who presented to the emergency department with right flank pain and was noted to have a large obstructing calculus at the ureteropelvic junction on the right side. He is now being brought in for urgent right stent insertion to be followed in the near future by lithotripsy. DESCRIPTION OF PROCEDURE: After induction of general anesthesia, the patient was placed in dorsal lithotomy position. Sequential compression devices were in place and functioning. Initial cystoscopy revealed a stricture at the urethral meatus, which was carefully dilated to 30-Sammarinese. The remainder of the urethra was unremarkable. The bladder was entered and was unremarkable. A guidewire was introduced into the right ureter. Right retrograde pyelogram revealed right hydronephrosis with a calculus clearly noted on fluoroscopy at the ureteropelvic junction. Using the open-ended catheter, the calculus was carefully manipulated proximally and once this was done, a 7-Sammarinese stent was introduced and positioned under fluoroscopy with good proximal and distal positioning noted. The bladder was emptied. The patient tolerated the procedure satisfactorily and was transferred back to the recovery area in stable condition. The plan is to bring him back some time in the next couple of weeks for shockwave lithotripsy as an outpatient. [id number]/[facility] #: [id number] MTDD
== END 2019-09-14 11:30 | disposition home or self-care (01) ==
LOC: ED 01:37 → OR 11:02 → ED 11:02 → OR 11:30
PROVIDERS: ATTEND Urology
DX: N13.2 Hydronephrosis with renal and ureteral calculous obstruction (principal); N35.811 Other urethral stricture, male, meatal; R10.31 Right lower quadrant pain; Z87.442 Personal history of urinary calculi; R11.2 Nausea with vomiting, unspecified; F17.200 Nicotine dependence, unspecified, uncomplicated
CPT/HCPCS: 36415; 74018; 74176; 74420; 80053; 83605; 83690; 85025; 85610; 86140; 96361; 96374; 96375; 99285; A9270-GY; C1876; J1100; J1885; J1956; J2270; J2405; J2704; J2765; J3010

== ENCOUNTER → 2019-09-26 09:19 | Day surgery (SDC) | payer BC ==
--- NOTE | 2019-09-21 23:40 | HP ---
HISTORY AND PHYSICAL: DATE OF PLANNED ADMISSION AND SURGERY: 09/26/19 HISTORY OF PRESENT ILLNESS: Mr. Wen is a 34-year-old white male who is admitted with a right renal calculus, status post placement of right ureteral stent for shock wave lithotripsy of right renal calculus and possible cystoscopy and removal of right ureteral stent. Mr. Wen is a known stone former and was previously treated for bilateral renal calculi. Last year, he presented with left renal colic caused by a 1-cm calculus at the ureteropelvic junction and required stent placement and shock wave lithotripsy. He was doing well until about 2 weeks ago when he presented to the emergency room with symptoms of right renal colic. His work-up showed a 1-cm calculus at the right ureteropelvic junction associated with right hydronephrosis. He did not have any fever or chills. He was taken to the operating room that day and had a cystoscopy and insertion of right ureteral stent. The patient did well following the procedure. He is now admitted for shock wave lithotripsy of the right renal calculus and if there is good fragmentation of the stone, possible cystoscopy, and removal of the right ureteral stent. PAST MEDICAL HISTORY: Recurrent calculi, requiring lithotripsy and stent placement. MEDICATIONS: He is on no chronic medications. ALLERGIES: He reports being allergic to penicillin. FAMILY HISTORY: His father had diabetes and myocardial infarction, and he in his 50s. SOCIAL HISTORY: The patient is a smoker of 1 to 2 packs of cigarettes per day. He denies the use of alcohol or recreation of the drugs. He works in a [email or web address]. Mental history negative. PHYSICAL EXAMINATION GENERAL: He is a pleasant white male, who looks older than his age. VITAL SIGNS: Blood pressure 120/80. LUNGS: Clear. There are some expiratory wheezing. HEART: Regular and rhythmic. No murmurs. ABDOMEN: Soft. No masses. There is slight right CVA tenderness. External genitalia are normal. IMPRESSION: A 1-cm calculus at the right ureteropelvic junction, status post placement of right ureteral stent. PLAN/RECOMMENDATIONS: Plan is for shock wave lithotripsy of the right renal calculus followed by possible cystoscopy and removal of the right ureteral stent if good fragmentation of the stone is noted. I discussed the above plans with the patient. All his questions were answered. [id number]/CPS #: [id number] MTDD
[~2019-09-26 09:19] MED LIST changes: +Dexamethasone TAB* 4 MG PO ONE; -DiMENhydriNATE IV* 50 MG/ML VIAL IV PUSH PRN; +Famotidine IV* 10 MG/ML 2 ML (20 mg) IV ONE; +Famotidine IV* 10 MG/ML 2 ML (20 mg) ONE; -HYDROmorphone INJ1* 1 MG/ML SYRINGE IV PRN; +Midazolam* 1 MG/ML 2 ML VIAL (2 MG) ONE; -Midazolam* 1 MG/ML 5 ML VIAL (5 MG) ONE; -Ondansetron INJ* 2 MG/ML VIAL IV PRN; -Ondansetron INJ* 2 MG/ML VIAL ONE; -Propofol* 10 MG/ML 20 ML BTL ONE; +Succinylcholine* 20 MG/ML 10 ML VIAL ONE; -fentaNYL* 50 MCG/ML 2 ML VIAL (100 MCG VIAL) IV PRN; -oxyCODONE/Acetamin 5/325 MG* TAB PO PRN
[2019-09-26 14:11] VITALS: BP 115/87
--- NOTE | 2019-09-27 02:21 | OP ---
DATE OF OPERATION: 09/26/19 - [facility] DATE OF : 85 SURGEON: Jose Garcia MD ANESTHESIOLOGIST: Dr. Viveros. ANESTHESIA: General. PRE-OP DIAGNOSES: 1. Right renal calculus (1 cm). 2. Status post placement of right ureteral stent. POST-OP DIAGNOSES: 1. Right renal calculus (1 cm). 2. Status post placement of right ureteral stent. OPERATIVE PROCEDURE: Shock wave lithotripsy of right renal calculus. INDICATIONS FOR PROCEDURE: Mr. Wen is a 34-year-old male who is a known stone former, who presented to the emergency room 2 weeks ago with symptoms of right renal colic and who was noted on CT to have a 1 cm obstructing calculus at the right ureteropelvic junction. The patient had urgent placement of right ureteral stent with resolution of his pain. He is now admitted for definitive treatment of the stone. PATHOLOGY: Preoperative KUB showed the stone to be at the right ureteropelvic junction adjacent to the stent. No other abnormal calcifications were noted. At fluoroscopy in the operating room, the stone had moved up slightly and it was in the renal pelvis adjacent to the stent. DESCRIPTION OF PROCEDURE: After successful general anesthesia, the patient was placed in the supine position on the shock wave lithotripsy table. The right renal calculus was well visualized under fluoroscopy. The position of the shock wave lithotripsy generator and the position of the patient were adjusted to have the stone in the focus of the shock waves. A total of 2,400 shocks were then delivered at a rate of 60 shocks per minute. The proper positioning of the generator and the fragmentation of the stone were monitored periodically. A 3-minute break was taken after the initial 300 shocks to decrease the risk of renal injury. At the completion of the procedure, there was excellent fragmentation of the stone with some of the fragments having moved into the lower pole and infundibulum. Because of the proximity of the SWL to the ureteropelvic junction, it was decided not to remove the stent at this time because of concern about associated edema of the UPJ. The patient tolerated the procedure well and left the operating room in good condition. The plan is to see the patient in another 7 to 10 days in the office and the stent will be removed. [id number]/[id number] #: [id number] [facility]
== END | disposition home or self-care (01) ==
LOC: OR 09:19
PROVIDERS: ATTEND Urology
DX: N20.0 Calculus of kidney (principal); Z87.442 Personal history of urinary calculi; Z88.0 Allergy status to penicillin; F17.210 Nicotine dependence, cigarettes, uncomplicated
CPT/HCPCS: 74018; J0330; J1100; J2250; J3010